=== PATIENT | female | born 1975 | race Caucasian/White ===

== ENCOUNTER 2018-04-24 16:09 | Inpatient (IN) | payer OTHER, MEDICAID ==
[~2018-04-24] VITALS: Ht 154.9 cm; Wt 42.7 kg
[2018-04-24 16:09] VITALS: BP 130/77
[~2018-04-24 16:09] MED LIST: ACET-2619 PO; ALPR1TAB2 PO; ASCO500T45 PO; BISA10SU1 RC; FAMO-90 PO; GABAPENTIN 300 MG CAP PO SCH; HYDR4TAB4 PO; MELA3TAB PO; METH750T9 PO; ONDA4ODT1 PO; OXYB15TA PO; OXYC30TE PO; SENNAKOT PO; TRAZ-286 PO; [UNRECOGNIZED DRUG - CODE] PO; [UNRECOGNIZED DRUG - CODE] PO
--- NOTE | 2018-04-24 16:09 | NUR ---
PT BIBA BLS TO BED 9
--- NOTE | 2018-04-24 16:36 | NUR ---
REPORT GIVEN TO ECHO LAMBERT
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
--- NOTE | 2018-04-24 17:06 | NUR ---
Patient being evaluated by physician at bedside.
[2018-04-24] MEDS ORDERED: NACL 0.9% 1,000 ML IV SCH ×2 (17:45→17:53)
[2018-04-24] MEDS ORDERED: HYDROcodone/APAP 7.5/325 MG 1 TAB PO PRN ×2 (17:45→17:55)
[2018-04-24] MEDS ORDERED: DOCUSATE SODIUM 100 MG GELCAP PO PRN ×2 (17:45→17:55)
[2018-04-24] MEDS ORDERED: MORPHINE SULFATE 2 MG/ML SYR IVP PRN ×2 (17:45→17:55)
[2018-04-24] MEDS ORDERED: ACETAMINOPHEN 325 MG TAB PO PRN ×2 (17:45→17:55)
[2018-04-24] MEDS ORDERED: BISACODYL 10 MG SUPP RC PRN (18:00)
[2018-04-24] MEDS ORDERED: SENNA 8.6 MG TAB PO PRN ×2 (18:00→20:00)
[2018-04-24] MEDS ORDERED: ONDANSETRON 4 MG ODT PO PRN (18:00)
[2018-04-24] MEDS ORDERED: ALPRAZolam 0.5 MG TAB PO PRN (18:00)
[2018-04-24] MEDS ORDERED: oxyCODONE 10 MG TABER PO SCH (18:00)
[2018-04-24] MEDS ORDERED: MAGNESIUM CITRATE 300 ML BTL PO PRN (18:00)
[2018-04-24] MEDS ORDERED: HYDROmorphone 2 MG TAB PO SCH (18:00)
[2018-04-24] MEDS ORDERED: METHOCARBAMOL 500 MG TAB PO PRN (18:00)
--- NOTE | 2018-04-24 18:10 | NUR ---
PT REFUSDED IV INCERTION
--- NOTE | 2018-04-24 18:15 | NUR ---
PER VERA MCGILL.
--- NOTE | 2018-04-24 18:20 | NUR ---
PER DR AVILES # 16 FR Judd catheter with 10 ml utilizing sterile technique. Immediate return of 5 ml HAZY YELLW urine noted. Bedside drainage bag placed below level of bladder. Urine sample collected and sent to lab. Pt tolerated procedure WELL.
[2018-04-24 18:44] VITALS: BP 126/70
--- NOTE | 2018-04-24 18:44 | NUR ---
Patient will be admitted to care of DR RAYMOND. Admited to M/S. Will go to room 115. Belongings list completed. Report to CONNOR DODGE .
--- NOTE | 2018-04-24 18:44 | NUR ---
PATIENT ARRIVED FROM ER VIA BED/GURNEY, ASSISTED WITH PATIENT TRANSFER FROM ER BED TO [facility] BED. NO DISTRESS NOTED. PATIENT IN STABLE CONDITION. RESPIRATIONS EVEN, UNLABORED, ON ROOM AIR. COMPLAINS OF 6/10 LOW BACK PAIN, WILL GIVE PAIN MEDICATION PER MD ORDERS. AAOX4, CALM, COOPERATIVE, SKIN COLOR APPROPRIATE TO ETHNICITY, WARM TO TOUCH. SKIN IS INTACT. 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 ABDOMEN SOFT, NON-DISTENDED. LUNGS CTA ON ALL LOBES. NO IV SITE IN PLACE DUE TO PATIENT REFUSING. REVIEWED PLAN OF CARE WITH PATIENT. PATIENT VERBALIZED UNDERSTANDING. SAFETY MEASURES IN PLACE, CALL LIGHT WITHIN REACH. WILL CONTINUE OT MONITOR.
--- NOTE | 2018-04-24 19:35 | NUR ---
GAVE REPORT TO HIGHWAY MAINTENANCE WORKER NURSE FOR CONTINUITY OF CARE. PATIENT IN STABLE CONDITION.
--- NOTE | 2018-04-24 19:40 | NUR ---
RECEIVED REPORT FROM DAY SHIFT NURSE. AAOX4. NO DISTRESS NOTED. ON ROOM AIR. NO IV LINE. PT IS PARAPLEGIC. GAMEZ CATH IN PLACE DRAINING CLEAR YELLOW URINE. C/O BACK PAIN 04/26. WILL CLARIFY PAIN MEDS ORDER TO DOCTOR. DISCUSSED PLAN OF CARE, PT VERBALIZED UNDERSTANDING. FALL PRECAUTION IN PLACE. CALL LIGHT WITHIN REACH.
[2018-04-24] MEDS ORDERED: LUBI24SG4 PO (19:52)
[2018-04-24] MEDS ORDERED: FERR325E14 PO (19:59)
[2018-04-24] MEDS ORDERED: DOCU-300 PO (19:59)
[2018-04-24] MEDS ORDERED: FLEPED RC (19:59)
[2018-04-24] MEDS ORDERED: DULO60EC PO (19:59)
[2018-04-24] MEDS ORDERED: FLOR250 PO (19:59)
[2018-04-24] MEDS ORDERED: RIVA20TA PO (19:59)
[2018-04-24] MEDS ORDERED: SENN-72 PO (20:01)
--- NOTE | 2018-04-24 20:45 | NUR ---
DR. AGUERO IN THE ROOM TO SEE/TALK TO PT REGARDING HER PAIN MEDS.
[2018-04-24] MEDS ORDERED: HYDROmorphone 2 MG TAB ONE (20:53)
[2018-04-24] MEDS ORDERED: traZODone 50 MG TAB PO PRN (21:00)
[2018-04-24] MEDS ORDERED: GABAPENTIN 300 MG CAP PO SCH (21:00)
[2018-04-24] MEDS: HYDROmorphone 2 MG TAB PO SCH (21:02)
[2018-04-24] MEDS: ASCORBIC ACID 500 MG TAB PO SCH (21:03)
[2018-04-24] MEDS: FAMOTIDINE 20 MG TAB PO SCH (21:04)
--- NOTE | 2018-04-24 21:30 | NUR ---
PT ASKED FOR SNACK. SNACK PROVIDED. ALL NEEDS MET AT THIS TIME.
[2018-04-25] VITALS: BP 107/69
--- NOTE | 2018-04-25 00:05 | NUR ---
PT RESTING COMFORTABLY IN BED. NO C/O PAIN AT THIS TIME.
[2018-04-25] MEDS ORDERED: METHOCARBAMOL 500 MG TAB PO SCH (02:30)
[2018-04-25] MEDS ORDERED: HYDROmorphone 2 MG TAB ONE (03:07)
[2018-04-25] MEDS: HYDROmorphone 2 MG TAB PO SCH (03:09)
--- NOTE | 2018-04-25 03:15 | NUR ---
PT C/O LOWER BACK PAIN 04/26. DILAUDID 4 MG PO GIVEN. PT REFUSED ROBAXIN 750 MG PO. PT STATED " I DON'T NEED IT."
[2018-04-25 03:24] LABS: PROTHROMBIN TIME 11.7 secs (10.8-13.4)
[2018-04-25 03:35] LABS: CHOL/HDL RATIO 3.4 (1-4.5); THYROID STIMULATING HORMONE 0.84 uIU/mL (0.34-3.74)
[2018-04-25 03:43] LABS: HEMATOCRIT 21.4 % (36-48); WHITE BLOOD COUNT (AUTO) 4.3 K/uL (4.8-10.8)
[2018-04-25 03:49] LABS: MEAN CORPUSCULAR HEMOGLOBIN 24 pg (27-31); MEAN CORPUSCULAR HGB CONC 32 g/dL (33-37); MEAN CORPUSCULAR VOLUME 74.4 fL (80-94); PLATELET COUNT (AUTO) 191 K/uL (140-450); RED BLOOD CELL COUNT(AUTO) 2.87 MIL/uL (4.20-5.40); RED CELL DISTRIBUTION WIDTH 17.1 % (11.6-13.7)
[2018-04-25 03:52] LABS: ALBUMIN 2.9 g/dL (3.4-5.0); CARBON DIOXIDE 23.9 mmol/L (21-32); CREATININE 1.7 mg/dL (0.6-1.3); POTASSIUM 4.9 mmol/L (3.5-5.1); TOTAL BILIRUBIN 0.4 mg/dL (0.0-1.0)
[2018-04-25 04:07] LABS: HEMOGLOBIN 6.8 g/dL (12.0-16.0)
[2018-04-25 04:08] LABS: LYMPHOCYTES % (MANUAL) 60 % (20-46)
--- NOTE | 2018-04-25 04:08 | NUR ---
RECEIVED CRITICAL LAB VALUE HGB 6.8. REPORTED TO . DOCTOR TO SEE PT.
[2018-04-25 04:09] LABS: MONOCYTES % (MANUAL) 7 % (5-12)
--- NOTE | 2018-04-25 05:40 | NUR ---
DR. AGUERO IN THE ROOM TO SEE PT. AWARE OF PT'S URINE BROWN IN COLOR. ENCOURAGED PT TO DRINK MORE WATER. NO C/O PAIN.
--- NOTE | 2018-04-25 06:45 | NUR ---
PATIENT HAS BEEN SCREENED AND CATEGORIZED HIGH NUTRITION RISK. PATIENT WILL BE SEEN WITHIN 1-2 DAYS OF ADMISSION. 04/25/18 - 04/26/18 BENIGNO MITCHELL MBA, RD
--- NOTE | 2018-04-25 07:05 | NUR ---
ENDORSED PT TO DAY SHIFT NURSE. PT IN STABLE CONDITION.
--- NOTE | 2018-04-25 07:07 | NUR ---
RECEIVED REPORT FROM AVIATION MAINTENANCE INSTRUCTOR RN. PATIENT IS RESTING COMFORTABLY IN BED. AAOX4. SKIN IS INTACT. NO IV SITE DUE TO PATIENT REFUSAL. GAMEZ CATHETER IN PLACE AND DRAINING DARK BROWN URINE. LUNGS CTA IN ALL GERMAN. HEART RHYTHM REGULAR, S1 AND S2 NOTED. PATIENT STATES THAT PAIN IS TOLERABLE AT THIS TIME. REVIEWED PLAN OF CARE WITH PATIENT, PATIENT VERBALIZED UNDERSTANDING OF PLAN. ALL SAFETY MEASURES IN PLACE, WILL CONTINUE TO MONITOR.
[2018-04-25 07:38] LABS: HEMATOCRIT 21.2 % (36-48); MEAN CORPUSCULAR HEMOGLOBIN 24 pg (27-31); MEAN CORPUSCULAR HGB CONC 32 g/dL (33-37); MEAN CORPUSCULAR VOLUME 74.8 fL (80-94); PLATELET COUNT (AUTO) 176 K/uL (140-450); RED BLOOD CELL COUNT(AUTO) 2.83 MIL/uL (4.20-5.40); RED CELL DISTRIBUTION WIDTH 17.2 % (11.6-13.7); WHITE BLOOD COUNT (AUTO) 4.7 K/uL (4.8-10.8)
[2018-04-25 07:43] LABS: ANION GAP 13.6 (8-16); CARBON DIOXIDE 23.1 mmol/L (21-32); CREATININE 1.6 mg/dL (0.6-1.3); POTASSIUM 4.7 mmol/L (3.5-5.1)
[2018-04-25 07:48] LABS: HEMOGLOBIN 6.8 g/dL (12.0-16.0); MAGNESIUM 2.1 mg/dL (1.8-2.4); PHOSPHORUS 5.2 mg/dL (2.5-4.9)
[2018-04-25 08:00] VITALS: BP 91/57
[2018-04-25 08:21] LABS: LYMPHOCYTES % (MANUAL) 54 % (20-46); MONOCYTES % (MANUAL) 10 % (5-12)
[2018-04-25] MEDS: ASCORBIC ACID 500 MG TAB PO SCH ×3 (09:00→21:00)
[2018-04-25] MEDS ORDERED: SODIUM FERRIC GLUCONATE 125 MG in NACL 0.9% 100 ML IV SCH (09:00)
[2018-04-25] MEDS: GABAPENTIN 300 MG CAP PO SCH ×3 (09:01→17:14)
[2018-04-25] MEDS: FAMOTIDINE 20 MG TAB PO SCH ×2 (09:02→21:43)
[2018-04-25] MEDS: OXYBUTYNIN 5 MG TAB PO SCH (09:02)
--- NOTE | 2018-04-25 09:15 | NUR ---
PATIENT IS RESTING COMFORTABLY IN BED. SCHEDULED MEDICATION ADMINISTERED PER MD ORDERS. ALL SAFETY MEASURES IN PLACE, CALL LIGHT WITHIN REACH.
--- NOTE | 2018-04-25 10:29 | NUR ---
04/25/18 RD INITIAL ASSESSMENT COMPLETED PLEASE REFER TO NUTRITION ASSESSMENT UNDER CARE ACTIVITY FOR ESTIMATED NUTRITIONAL NEEDS. RD RECOMMENDATIONS: 1- RECOMMEND CONTINUE REGULAR DIET 2- WILL ADD HEALTHSHAKES TID WITH MEALS TO HELP INCREASE CALORIE/PROTEIN INTAKE 3- F/U 3-5 DAYS; MODERATE RISK BENIGNO MITCHELL MBA, RD
--- NOTE | 2018-04-25 11:30 | NUR ---
PATIENT RESTING COMFORTABLY IN BED. ASSISTED PATIENT WITH SPONGE BATH AND GAMEZ CARE. ALL SAFETY MEASURES IN PLACE, CALL LIGHT WITHIN REACH. WILL CONTINUE TO MONITOR.
[2018-04-25] MEDS: HYDROmorphone 2 MG TAB PO PRN ×3 (12:46→23:09)
--- NOTE | 2018-04-25 12:46 | NUR ---
PATIENT COMPLAINING OF PAIN 06/26. DILAUDID GIVEN PER MD ORDERS. ALL SAFETY MEASURES IN PLACE, CALL LIGHT WITHIN REACH. WILL CONTINUE TO MONITOR.
[2018-04-25] MEDS: METHOCARBAMOL 500 MG TAB PO SCH ×2 (12:55→21:26)
--- NOTE | 2018-04-25 15:56 | NUR ---
PATIENT IS RESTING IN BED. NO DISTRESS NOTED. DENIES PAIN AT THIS TIME. ALL SAFETY MEASURES ARE IN PLACE. WILL CONTINUE TO MONITOR.
[2018-04-25 16:00] VITALS: BP 102/66
[2018-04-25] MEDS ORDERED: ALBUTEROL SULFATE/IPRATROPIU 3 ML SOL IH PRN (16:45)
[2018-04-25] MEDS ORDERED: CALCIUM ACETATE 667 MG TAB PO ONE (16:55)
[2018-04-25] MEDS: oxyCODONE 10 MG TABER PO SCH (18:00)
[2018-04-25] MEDS ORDERED: oxyCODONE 10 MG TABER PO PRN (18:00)
[2018-04-25] MEDS ORDERED: HYDROmorphone 2 MG TAB PO PRN (18:00)
--- NOTE | 2018-04-25 18:00 | NUR ---
PATIENT SLEEPING COMFORTABLY IN BED, AROUSABLE BY VOICE. ALL SAFETY MEASURES IN PLACE, WILL CONTINUE TO MONITOR.
--- NOTE | 2018-04-25 19:15 | NUR ---
PATIENT IS SLEEPING IN BED, AROUSABLE BY VOICE. ENDORSED PLAN OF CARE TO VARIETY PERFORMER NURSE. PATIENT IS IN STABLE CONDITION.
--- NOTE | 2018-04-25 19:16 | NUR ---
RECD. RESTING IN BED, AWAKE, A/OX4. RESPIRATION EVEN AND UNLABORED. NO IV LINE. WATCHING TV. BEDBOUND, F/C PATENT DRAINING CLOUDY YELLOW URINE. PLAN OF CARE FOR THE SHIFT DISCUSSED. VERBALIZED UNDERSTANDING. DENIES PAIN 0/10.
--- NOTE | 2018-04-25 19:53 | NUR ---
Patient's Plan of Care was discussed and reviewed with MARRIAGE COUNSELOR: YAMILE HELLER
--- NOTE | 2018-04-25 21:43 | NUR ---
DUE PO MEDICATIONS GIVEN. REFUSED VITAMIN C. WANTS STOOL SOFTENERS BUT DOES NOT WANT CITROMA AND SENNA, WILL INFORMED .
[2018-04-25] MEDS ORDERED: BISACODYL 5 MG TABEC PO PRN (22:00)
--- NOTE | 2018-04-25 22:30 | NUR ---
SNACK GIVEN REQUESTED.
--- NOTE | 2018-04-25 22:36 | NUR ---
SITTING ON BED, STILL WATCHING TV.CALCIUM LOW, MEDICATED WITH PHOSLO ORDERED.
--- NOTE | 2018-04-25 22:37 | NUR ---
NO BM FOR THREE DAYS NOW, MEDICATED WITH DULCOLAX TABLET ORDERED.
[2018-04-25] MEDS ORDERED: CALCIUM ACETATE 667 MG TAB PO SCH (23:00)
[2018-04-26] VITALS: BP 114/65
--- NOTE | 2018-04-26 | NUR ---
SLEEPING COMFORTABLY IN BED.
[2018-04-26] MEDS: METHOCARBAMOL 500 MG TAB PO SCH ×3 (05:00→21:19)
--- NOTE | 2018-04-26 05:30 | NUR ---
AWAKE IN BED, ENCOURAGED TO DRINK MORE WATER, STATED THAT SHE DOES NOT LIKE DRINKING WATER, SUGGESTED TRY WITH WITH LEMON.
[2018-04-26] MEDS: HYDROmorphone 2 MG TAB PO PRN ×5 (05:40→22:52)
[2018-04-26] MEDS: oxyCODONE 10 MG TABER PO SCH ×4 (06:00→18:00)
--- NOTE | 2018-04-26 07:00 | NUR ---
CONDITION REMAIN STABLE. WILL ENDORSE TO AM NURSE FOR CONTINUITY OF CARE.
--- NOTE | 2018-04-26 07:19 | NUR ---
ENDORSED TO AM NURSES FOR CONTINUITY OF CARE.
--- NOTE | 2018-04-26 07:20 | NUR ---
RECEIVED REPORT FROM MATERIAL REPROCESSING ASSOCIATE RN. PATIENT IS RESTING COMFORTABLY IN BED, AROUSABLE BY VOICE. SKIN IS INTACT. NO IV SITE DUE TO PATIENT REFUSAL. GAMEZ CATHETER IN PLACE AND DRAINING DARKER YELLOW URINE. WILL CONTINUE TO ENCOURAGE ORAL HYDRATION. LUNGS CTA IN ALL GERMAN. HEART RHYTHM REGULAR, S1 AND S2 NOTED. PATIENT STATES THAT PAIN IS TOLERABLE AT THIS TIME. REVIEWED PLAN OF CARE WITH PATIENT, PATIENT VERBALIZED UNDERSTANDING OF PLAN. ALL SAFETY MEASURES IN PLACE, WILL CONTINUE TO MONITOR.
[2018-04-26 07:32] LABS: MEAN CORPUSCULAR HEMOGLOBIN 24 pg (27-31); MEAN CORPUSCULAR HGB CONC 33 g/dL (33-37); MEAN CORPUSCULAR VOLUME 74.3 fL (80-94); PLATELET COUNT (AUTO) 201 K/uL (140-450); RED BLOOD CELL COUNT(AUTO) 2.75 MIL/uL (4.20-5.40); RED CELL DISTRIBUTION WIDTH 17.1 % (11.6-13.7); WHITE BLOOD COUNT (AUTO) 4.6 K/uL (4.8-10.8)
[2018-04-26 07:36] LABS: ANION GAP 14.1 (8-16); CARBON DIOXIDE 23.4 mmol/L (21-32); CREATININE 1.6 mg/dL (0.6-1.3); POTASSIUM 4.5 mmol/L (3.5-5.1)
[2018-04-26 07:46] LABS: MAGNESIUM 2.1 mg/dL (1.8-2.4); PHOSPHORUS 5.3 mg/dL (2.5-4.9)
[2018-04-26 08:00] VITALS: BP 112/71
[2018-04-26] MEDS ORDERED: CALCIUM ACETATE 667 MG TAB PO SCH (08:00)
[2018-04-26 08:01] LABS: HEMATOCRIT 20.4 % (36-48); HEMOGLOBIN 6.7 g/dL (12.0-16.0)
[2018-04-26] MEDS: GABAPENTIN 300 MG CAP PO SCH ×3 (08:19→17:04)
[2018-04-26] MEDS: FAMOTIDINE 20 MG TAB PO SCH ×2 (08:19→21:19)
[2018-04-26] MEDS: OXYBUTYNIN 5 MG TAB PO SCH (08:20)
[2018-04-26 08:26] LABS: BASOPHILS % (MANUAL) 0 % (0-2); EOSINOPHILS % (MANUAL) 0 % (0-4); LYMPHOCYTES % (MANUAL) 61 % (20-46); MONOCYTES % (MANUAL) 9 % (5-12)
[2018-04-26] MEDS: ASCORBIC ACID 500 MG TAB PO SCH ×2 (08:29→21:00)
--- NOTE | 2018-04-26 08:40 | NUR ---
PATIENT SITTING IN BED COMFORTABLY. NO DISTRESS NOTED. PAIN WITHIN TOLERABLE AT THIS TIME. SCHEDULED MEDICATIONS DUE GIVEN. NOTIFIED CHARGE NURSE OF PICC LINE ORDER FROM MD, CHARGE NURSE NOTIFIED HORSE BREEDER, ERASMO ZIMMERMAN VERBALIZED UNDERSTANDING AND WILL FOLLOW-UP ON IT. PICC LINE PROCEDURE EXPLAINED TO PATIENT, ANSWERED ALL OF PATIENT'S QUESTIONS, AND CONSENT WAS SIGNED. SAFETY MEASURES IN PLACE, CALL LIGHT WITHIN REACH. WILL CONTINUE OT MONITOR.
--- NOTE | 2018-04-26 11:00 | NUR ---
BLOOD BANK CALLED AND REPORTED THAT BLOOD WILL TAKE SOME TIME TO ARRIVE BECAUSE THEY HAVE TO ORDER IT FROM ANOTHER PLACE DUE TO PATIENT HAVING ANTIGENS IN BLOOD. WILL CONTINUE TO MONITOR.
[2018-04-26] MEDS: CALCIUM ACETATE 667 MG TAB PO SCH ×2 (12:00→17:00)
--- NOTE | 2018-04-26 15:00 | NUR ---
FOLLOWED UP WITH DATA REPORTING ANALYST, ERASMO, VIA PHONE REGARDING PICC LINE PLACEMENT PROCEDURE THAT WAS ORDERED. ERASMO TO FOLLOW-UP. WILL CONTINUE TO MONITOR.
--- NOTE | 2018-04-26 15:39 | NUR ---
LEFT MESSAGE TO PICC LINE THE 3rd TIME.
[2018-04-26 16:00] VITALS: BP 111/68
--- NOTE | 2018-04-26 17:05 | NUR ---
PATIENT RESTING IN BED. SCHEDULED MEDICATIONS GIVEN AT THIS TIME PER MD ORDERS. PATIENT CONTINUES TO REFUSE CALCIUM ACETATE TABLET. NO DISTRESS OR COMPLAINS OF PAIN AT THIS TIME. SAFETY MEASURES ARE IN PLACE, WILL CONTINUE TO MONITOR.
--- NOTE | 2018-04-26 19:24 | NUR ---
ENDORSED PLAN OF CARE TO PRINT AND PATTERN DESIGNER RN. PATIENT IS IN STABLE CONDITION.
--- NOTE | 2018-04-26 19:25 | NUR ---
RECEIVED REPORT FROM DAY SHIFT BRANDON MARROQUIN RN. PT RESTING COMFORTABLY IN BED, ANOX4, ON ROOM AIR, NO IV SITE DUE TO PATIENT REFUSAL. AWAITING FOR PICC LINE TO BE INSERTED. PT IS PARAPLEGIC, FALL PREACAUTIONS IN PLACE. BED ALARM ON. GAMEZ CATHETER IN PLACE AND DRAINING DARKER YELLOW URINE. WILL CONTINUE TO ENCOURAGE ORAL HYDRATION. DISCUSSED PLAN OF CARE AND PATIENT VERBALIZED UNDERSTANDING. NO S/S OF RESPIRATORY DISTRESS OR DISCOMFORT NOTED AT THIS TIME. WHITE BOARD UPDATED. BED IN LOWEST POSITION, SIDE RAILS UP, BED BREAKS ON. BED SIDE TABLE AND CALL LIGHT WITHIN REACH. WILL CONTINUE TO MONITOR.
[2018-04-26 20:00] VITALS: BP 117/71
--- NOTE | 2018-04-26 20:00 | NUR ---
VITAL SIGNS TAKEN AND TOLERATED WELL. WILL CONTINUE TO MONITOR.
--- NOTE | 2018-04-26 21:20 | NUR ---
SCHEDULED MEDICATION GIVEN AND TOLERATED WELL. PT HAS DIFFICULT SWALLOWING LARGE PILLS. ROBAXIN MEDICATION WAS CUT. PT REQUESTED SODA BECAUSE "IT MAKES IT EASIER FOR ME TO SWALLOW PILLS." PROVIDED SODA WITH ORAL MEDICATION. PT REFUSED VITAMIN C TABLET. ALSO REFUSING OXYCOTIN TABLETS BECAUSE SHE BELIEVES THE ENTERIC COATED TABLETS DISAGREE WITH HER STOMACH. INSTEAD SHE REQUESTS DILAUDID TABLETS FOR PAIN. NO S/S OF RESPIRATORY DISTRESS OR DISCOMFORT NOTED AT THIS TIME. WILL CONTINUE TO MONITOR.
--- NOTE | 2018-04-26 22:55 | NUR ---
PT C/O PAIN 06/26. GAVE DILAUDID TABLETS FOR PAIN. WILL CONTINUE TO MONITOR.
[2018-04-27] VITALS: BP 117/70
--- NOTE | 2018-04-27 | NUR ---
VITAL SIGNS TAKEN AND TOLERATED WELL. PT REFUSED OXYCONTIN SINCE SHE CLAIMS THE ENTERIC COATED TABLETS DISAGREE WITH HER STOMACH. WILL CONTINUE TO MONITOR.
--- NOTE | 2018-04-27 01:55 | NUR ---
PT CONTINUES TO SLEEP. NO S/S OF RESPIRATORY DISTRESS OR DISCOMFORT NOTED AT THIS TIME. WILL CONTINUE TO MONITOR.
--- NOTE | 2018-04-27 03:53 | NUR ---
PT CONTINUES TO SLEEP. NO S/S OF RESPIRATORY DISTRESS OR DISCOMFORT NOTED AT THIS TIME. WILL CONTINUE TO MONITOR.
--- NOTE | 2018-04-27 04:50 | NUR ---
PT C/O BACK PAIN 06/26. WILL MEDICATE.
[2018-04-27] MEDS: HYDROmorphone 2 MG TAB PO PRN ×3 (04:51→14:54)
[2018-04-27] MEDS: METHOCARBAMOL 500 MG TAB PO SCH ×2 (05:00→13:21)
--- NOTE | 2018-04-27 05:00 | NUR ---
PT REFUSED ROBAXIN MEDICATION. WILL CONTINUE TO MONITOR.
[2018-04-27] MEDS: oxyCODONE 10 MG TABER PO SCH ×3 (06:00→12:00)
--- NOTE | 2018-04-27 06:00 | NUR ---
PT SLEEPING IN BED. NO S/S OF RESPIRATORY DISTRESS OR DISCOMFORT NOTED AT THIS TIME. WILL CONTINUE TO MONITOR.
--- NOTE | 2018-04-27 07:17 | NUR ---
LEAVE MESSAGE TO VOICEMAIL PT FOR PICCLINE INSERTION, MADE AWARE PT WILL HAVE TRANSFUSION, WILL CALL BACK AGAIN LATER
--- NOTE | 2018-04-27 07:20 | NUR ---
ENDORSED PT CARE TO DAY SHIFT NURSE CARMEN FOR CONTINUITY OF CARE.
--- NOTE | 2018-04-27 07:20 | NUR ---
RECEIVED REPORT FROM NIGHTSHIFT NURSE AT BEDSIDE. PATIENT IS AWAKE AT THIS TIME. PATIENT ALERT AND ORIENTED X4. PATIENT IS PARAPLEGIC. PATIENT IS AWARE OF HER DEFICITS. PATIENT DOES NOT COMPLAIN OF PAIN AT THIS TIME. NO DISTRESS NOTED. NO IV ACCESS NOTED. AWAITING PICC LINE TO BE INSERTED. GAMEZ CATHETER IN PLACE DRAINING DARK FREDDIE URINE. LOWERED BED TO LOWEST SETTING. UPDATED BOARD IN PATIENT'S ROOM. APPROPRIATE SIGNS PLACED OUTSIDE OF PATIENTS ROOM. CALL LIGHT WITHIN REACH OF PATIENT. WILL CONTINUE TO MONITOR.
[2018-04-27 07:41] LABS: MAGNESIUM 2.7 mg/dL (1.8-2.4); PHOSPHORUS 4.2 mg/dL (2.5-4.9)
[2018-04-27 07:44] LABS: HEMATOCRIT 21.6 % (36-48); MEAN CORPUSCULAR HEMOGLOBIN 24 pg (27-31); MEAN CORPUSCULAR HGB CONC 32 g/dL (33-37); MEAN CORPUSCULAR VOLUME 74.7 fL (80-94); PLATELET COUNT (AUTO) 217 K/uL (140-450); RED BLOOD CELL COUNT(AUTO) 2.89 MIL/uL (4.20-5.40); RED CELL DISTRIBUTION WIDTH 17.2 % (11.6-13.7); WHITE BLOOD COUNT (AUTO) 4.7 K/uL (4.8-10.8)
[2018-04-27 07:46] LABS: ANION GAP 10.8 (8-16); CARBON DIOXIDE 27.3 mmol/L (21-32); CREATININE 1.5 mg/dL (0.6-1.3); POTASSIUM 5.1 mmol/L (3.5-5.1)
[2018-04-27 07:52] LABS: HEMOGLOBIN 6.9 g/dL (12.0-16.0)
[2018-04-27 08:00] VITALS: BP 110/59
[2018-04-27 08:03] LABS: LYMPHOCYTES % (MANUAL) 53 % (20-46); MONOCYTES % (MANUAL) 10 % (5-12)
--- NOTE | 2018-04-27 08:03 | NUR ---
CALL PLACE AGAIN TO PICC LINE LEAVE MESSAGE [employer] , WILL ENDORSE TO FOLLOW UP
[2018-04-27] MEDS: OXYBUTYNIN 5 MG TAB PO SCH (09:06)
[2018-04-27] MEDS: CALCIUM ACETATE 667 MG TAB PO SCH ×2 (09:06→13:21)
[2018-04-27] MEDS: GABAPENTIN 300 MG CAP PO SCH ×2 (09:07→13:21)
[2018-04-27] MEDS: FAMOTIDINE 20 MG TAB PO SCH (09:07)
[2018-04-27] MEDS: ASCORBIC ACID 500 MG TAB PO SCH (09:07)
--- NOTE | 2018-04-27 09:07 | NUR ---
PATIENT TOOK AM MEDICATIONS. PATIENT TOLERATED WELL. WILL CONTINUE TO MONITOR PATIENT.
[2018-04-27] MEDS ORDERED: GABA-638 PO (10:34)
--- NOTE | 2018-04-27 11:50 | NUR ---
PATIENT RESTING AT THIS TIME IN SEMI-FOWLERS POSITION. NO DISTRESS NOTED. WILL CONTINUE TO MONITOR PATIENT.
--- NOTE | 2018-04-27 13:24 | NUR ---
PATIENT TOOK AM MEDICATIONS. PATIENT TOLERATED WELL.
--- NOTE | 2018-04-27 13:30 | NUR ---
Gear Setter Notes: I Call SNF([facility]) at ; I spoke to [facility] from Admissions. Per Brianna patient is to able to return to their facility today at room # 113-C with accepting . Ric Dow. Per Brianna Please arrange transport for patient after 15:00. I thanked her for information and I ended the call. Charge NR Jihan was made aware by these advertising copywriter and will be arranging transport back for patient to their facility.
--- NOTE | 2018-04-27 14:54 | NUR ---
CALLED [facility] [phone], AND SHE GAVE RESERVATION #[id number]. PATIENT WILL GO TO [address] AT [facility], REPORT TO [phone].
--- NOTE | 2018-04-27 15:25 | NUR ---
DRAINED 1 LITER OF URINE FROM PATIENT'S GAMEZ CATHETER.
--- NOTE | 2018-04-27 15:30 | NUR ---
CALLED REPORT TO ECHO REYES AT [facility]. GAVE NURSE OUR CALL BACK NUMBER FOR ADDITIONAL QUESTIONS.
--- NOTE | 2018-04-27 15:40 | NUR ---
PATIENT SIGNED ALL DISCHARGE INSTRUCTIONS AND IS AWARE OF DESTINATION. PATIENT GATHERED ALL BELONGINGS. CUT OFF PATIENT'S IDENTIFICATION BANDS. PATIENT IS WHEELED OFF THE UNIT BY ROSSI WITH TWO LOGISTIC EMPLOYEES. PATIENT LEFT IN STABLE CONDITION.
[2018-04-28 06:13] LABS: FOLIC ACID 14.4 ng/mL (>3.0)
== END 2018-04-27 15:40 | disposition home or self-care (01) | DRG 551 ==
LOC: MED 16:09 → MTU 17:56
PROVIDERS: ADMIT Family Medicine; ATTEND Family Medicine
PROC: 30233N1 Transfusion of Nonautologous Red Blood Cells into Peripheral Vein, Percutaneous Approach (ICD-10-PCS; principal; 2018-04-26)
DX: M54.89 Other dorsalgia (principal); N17.0 Acute kidney failure with tubular necrosis; G82.20 Paraplegia, unspecified; E44.0 Moderate protein-calorie malnutrition; Z68.1 Body mass index [BMI] 19.9 or less, adult; D64.9 Anemia, unspecified; J45.909 Unspecified asthma, uncomplicated; K21.9 Gastro-esophageal reflux disease without esophagitis; Z86.718 Personal history of other venous thrombosis and embolism; G89.29 Other chronic pain; Z88.5 Allergy status to narcotic agent; Z88.8 Allergy status to other drugs, medicaments and biological substances; Z83.3 Family history of diabetes mellitus; Z82.3 Family history of stroke; Z82.49 Family history of ischemic heart disease and other diseases of the circulatory system; N32.81 Overactive bladder; K59.00 Constipation, unspecified; E83.39 Other disorders of phosphorus metabolism; F41.9 Anxiety disorder, unspecified; G47.00 Insomnia, unspecified; D63.8 Anemia in other chronic diseases classified elsewhere; E83.41 Hypermagnesemia
CPT/HCPCS: 36415; 71045; 80048; 80053; 82150; 82607; 82746; 83036; 83540; 83690; 83735; 83880; 84100; 84436; 84439; 84443; 84479; 84484; 85025; 85045; 85610; 85730; 86870; 86886; 86900; 86901; 86920; 87081; 93005; 93970; 99285; J2916; Q0092

== ENCOUNTER 2018-06-03 16:25 | Inpatient (IN) | payer OTHER, MEDICAID ==
[~2018-06-03] VITALS: Ht 154.9 cm; Wt 43.1 kg
[~2018-06-03 16:25] MED LIST changes: +DOCU-300 PO; +DULO60EC PO; +FERR325E14 PO; +FLEPED RC; +FLOR250 PO; +GABA-638 PO; -GABAPENTIN 300 MG CAP PO SCH; +LACT10CA PO; +LUBI24SG4 PO; +RIVA20TA PO; +SENN-72 PO; -SENNAKOT PO; -TRAZ-286 PO; +TRAZ-344 PO; +ZOS3.375PM IV
--- NOTE | 2018-06-03 16:25 | NUR ---
pt darwin bls to er bed 06
[2018-06-03 16:29] VITALS: BP 118/85
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
[2018-06-03] MEDS ORDERED: NACL 0.9% 1,000 ML IV ONE (16:55)
--- NOTE | 2018-06-03 17:05 | NUR ---
LAB AT BEDSIDE.
--- NOTE | 2018-06-03 17:10 | NUR ---
PT REFUSED IVF;" I ONLY WANT PICC LINE . NOTIFIED DR MCFADDEN.
[2018-06-03 17:28] LABS: HEMOGLOBIN 7.5 g/dL (12.0-16.0); RED BLOOD CELL COUNT(AUTO) 2.94 MIL/uL (4.20-5.40); WHITE BLOOD COUNT (AUTO) 3.9 K/uL (4.8-10.8)
[2018-06-03 17:29] LABS: EOSINOPHILS % (AUTO) 0.2 % (0.0-4.0); HEMATOCRIT 23.3 % (36-48); LYMPHOCYTES % (AUTO) 34.3 % (20.5-51.1); MEAN CORPUSCULAR HEMOGLOBIN 26 pg (27-31); MEAN CORPUSCULAR HGB CONC 32 g/dL (33-37); MEAN CORPUSCULAR VOLUME 79.3 fL (80-94); MONOCYTES % (AUTO) 9.8 % (1.7-9.3); PLATELET COUNT (AUTO) 219 K/uL (140-450); RED CELL DISTRIBUTION WIDTH 20.9 % (11.6-13.7)
[2018-06-03 17:30] LABS: BASOPHILS % (AUTO) 0.7 % (0.0-2.0); LYMPHOCYTES # (AUTO) 1.4 K/uL (2.5-16.5); MONOCYTES # (AUTO) 0.4 K/uL (0.8-1.0); NEUTROPHILS # (AUTO) 2.2 K/uL (1.8-7.7)
[2018-06-03 17:45] LABS: APPEARANCE,URINE CLOUDY (CLEAR)
[2018-06-03] MEDS ORDERED: ACETAMINOPHEN 325 MG TAB PO PRN ×2 (17:45→19:10)
[2018-06-03] MEDS ORDERED: DOCUSATE SODIUM 100 MG GELCAP PO PRN (17:45)
[2018-06-03] MEDS ORDERED: ZOLPIDEM 5 MG TAB PO PRN (17:45)
[2018-06-03] MEDS ORDERED: LORazepam 0.5 MG TAB PO PRN (17:45)
[2018-06-03 17:46] LABS: BILIRUBIN,URINE 1+ (NEGATIVE); BLOOD, URINE 3+ (NEGATIVE); COLOR,URINE PINK (YELLOW); LEUKOCYTE ESTERASE ,URINE 3+ (NEGATIVE); NITRITE, URINE NEGATIVE (NEGATIVE); UGLUCOSE NEGATIVE (NEGATIVE)
[2018-06-03 17:47] LABS: RBC,URINE 20-50 /HPF (0-5); WBC,URINE 60-80 /HPF (0-5)
[2018-06-03 18:09] LABS: CARBON DIOXIDE 20.3 mmol/L (21-32); CREATININE 3.5 mg/dL (0.6-1.3); POTASSIUM 5.3 mmol/L (3.5-5.1); TOTAL BILIRUBIN 0.2 mg/dL (0.0-1.0)
[2018-06-03 18:10] LABS: ALBUMIN 2.6 g/dL (3.4-5.0)
--- NOTE | 2018-06-03 18:40 | NUR ---
Patient will be admitted to care of DR HOOKS. Admited to TELE. Will go to room 116A. Belongings list completed. Report to PATRICK MCCARTHY.
[2018-06-03 19:00] LABS: BARBITURATE, URINE NEGATIVE ng/ml (NEG <=200); BENZODIAZEPINE, URINE NEGATIVE ng/mL (NEG <=200); COCAINE, URINE NEGATIVE ng/mL (NEG <=300)
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
[2018-06-03 19:01] LABS: CANNABINOID, URINE NEGATIVE ng/mL (NEG <=50); OPIATE, URINE NEGATIVE ng/mL (NEG <=2000); PHENCYCLIDINE SCREEN,URINE NEGATIVE ng/mL (NEG <=25)
[2018-06-03] MEDS ORDERED: MAGNESIUM CITRATE 300 ML BTL PO PRN (19:10)
[2018-06-03] MEDS ORDERED: HYDROMORPHONE HCL 4 MG PO SCH (19:10)
[2018-06-03] MEDS ORDERED: BISACODYL 10 MG SUPP RC PRN (19:10)
[2018-06-03 19:21] LABS: PHOSPHORUS 6.7 mg/dL (2.5-4.9)
[2018-06-03 19:22] LABS: FREE T4 (FREE THYROXINE) 1.1 ng/dL (0.76-1.46)
[2018-06-03 19:23] LABS: MAGNESIUM 2.2 mg/dL (1.8-2.4)
--- NOTE | 2018-06-03 19:40 | NUR ---
DR ALMARAZ MADE AWARE OF NO IV LINE AND PREFERENCE FOR PICC LINE, DOCTOR TO TRY ONE TIME AND IF NOT ABLE TO GET IT WILL ORDER PICC LINE INSERTION.
[2018-06-03 19:46] LABS: THYROID STIMULATING HORMONE 2.06 uIU/mL (0.34-3.74)
[2018-06-03 20:00] VITALS: BP 129/69
[2018-06-03] MEDS: DULoxetine 30 MG CAPDR PO SCH (20:05)
[2018-06-03] MEDS: FERROUS SULFATE 325 MG TABEC PO SCH (20:06)
[2018-06-03] MEDS: HYDROmorphone 2 MG TAB PO PRN (20:06)
--- NOTE | 2018-06-03 20:10 | NUR ---
PT ONLY WANTS ONE TIME IV INSERTION, CHARGE NURSE KEIRA TRIED BUT UNABLE TO INSERT, MEDICATED PRN FOR PAIN WITH DILAUDID PO, SANDWICH PROVIDED, WITH GOOD APPETITE, ALL NEEDS ATTENDED.
--- NOTE | 2018-06-03 20:30 | NUR ---
SUPERVISOR OF OFFICIALS MADE AWARE OF ORDER FOR PICC LINE INSERTION, HE WILL CALL PICC LINE NURSE.
[2018-06-03] MEDS: NACL 0.9% 1,000 ML IV SCH (20:51)
[2018-06-03] MEDS ORDERED: MELATONIN 6 MG PO SCH (21:00)
--- NOTE | 2018-06-03 21:50 | NUR ---
FOLLOW UP WITH NACHO PETERSON, HE SAID HE LEFT MESSAGE TO PICC LINE NURSE, NO CALL BACK YET, DR BENOIT MADE AWARE THAT PICC LINE MIGHT BE INSERTED TOMORROW AND CAN'T ADMINISTER DUE IV ANTIBIOTIC, STATED "THAT'S FINE".
[2018-06-04] VITALS: BP 119/59
[2018-06-04] MEDS: HYDROmorphone 2 MG TAB PO PRN ×3 (00:02→21:05)
--- NOTE | 2018-06-04 00:05 | NUR ---
PT AWAKE, VITAL SIGNS STABLE, COMPLAINING OF PAIN, REFUSED DUE OXYCONTIN AND INSTEAD WANTS THE DILAUDID PO, MEDICATED PRN WITH DILAUDID PO, STILL NO IV LINE, AWAITING PICC LINE NURSE IN AM, CONTINUE TO MONITOR CLOSELY.
[2018-06-04] MEDS: ONDANSETRON 4 MG/2 ML VIAL IM/IVP PRN (01:09)
--- NOTE | 2018-06-04 01:10 | NUR ---
PT VOMITED 50 ML YELLOW BROWN VOMITUS, MEDICATED WITH ZOFRAN IM, MONITORED CLOSELY.
[2018-06-04] MEDS: NACL 0.9% 1,000 ML IV SCH ×3 (03:41→23:36)
[2018-06-04 04:30] VITALS: BP 122/70
--- NOTE | 2018-06-04 05:00 | NUR ---
PT DENIES ANY PAIN, REFUSED DUE OXYCONTIN PO, PREFER DILAUDID PO PRN, WILL CALL IF SHE IS IN PAIN, 800 ML GAMEZ CATH OUTPUT WITH DARK CRANBERRY COLORED URINE, UNABLE TO COLLECT STOOL OB, NO BM THE WHOLE SHIFT, AWAITING PICC LINE INSERTION, CONSENT SIGNED.
[2018-06-04] MEDS: PIPER/TAZO 2.25GM/D5W PREMIX 50 ML IV SCH ×5 (06:00→23:35)
[2018-06-04] MEDS: oxyCODONE 10 MG TABER PO SCH ×5 (06:00→23:37)
[2018-06-04 06:16] LABS: BASOPHILS % (AUTO) 0.6 % (0.0-2.0); HEMATOCRIT 25.1 % (36-48); HEMOGLOBIN 7.8 g/dL (12.0-16.0); LYMPHOCYTES # (AUTO) 1.5 K/uL (2.5-16.5); LYMPHOCYTES % (AUTO) 29.8 % (20.5-51.1); MEAN CORPUSCULAR HEMOGLOBIN 25 pg (27-31); MEAN CORPUSCULAR HGB CONC 31 g/dL (33-37); MEAN CORPUSCULAR VOLUME 79.5 fL (80-94); MONOCYTES # (AUTO) 0.4 K/uL (0.8-1.0); NEUTROPHILS # (AUTO) 3.1 K/uL (1.8-7.7); NEUTROPHILS % (AUTO) 61.6 % (42.2-75.2); PLATELET COUNT (AUTO) 244 K/uL (140-450); RED BLOOD CELL COUNT(AUTO) 3.15 MIL/uL (4.20-5.40); RED CELL DISTRIBUTION WIDTH 20.7 % (11.6-13.7)
--- NOTE | 2018-06-04 07:20 | NUR ---
PT AWAKE, NO SIGNS OF DISTRESS, REPORT GIVEN TO RN ERIK FOR CONTINUITY OF CARE.
--- NOTE | 2018-06-04 07:22 | NUR ---
RECEIVED BEDSIDE REPORT FROM PSYCHIATRIC AIDES TEACHER NURSE. PATIENT IS AWAKE, ALERT AND ORIENTEDX4. PATIENT IS BEDBOUND, SHE IS PARAPLEGIC. INCONTINENT. GAMEZ IN PLACE. SKIN IS INTACT. NO IV ACCESS. PATIENT TO GET PICC LINE TODAY. BED IN LOW POSITION. CALL LIGHT WITHIN REACH. WILL CONTINUE TO MONITOR THE PATIENT.
[2018-06-04 07:41] LABS: MAGNESIUM 2.4 mg/dL (1.8-2.4); PHOSPHORUS 7.1 mg/dL (2.5-4.9)
[2018-06-04 08:00] VITALS: BP 128/72
--- NOTE | 2018-06-04 08:39 | NUR ---
PATIENT HAS BEEN SCREENED AND CATEGORIZED HIGH NUTRITION RISK. PATIENT WILL BE SEEN WITHIN 1-2 DAYS OF ADMISSION. 06/04/18 06/05/[address]
--- NOTE | 2018-06-04 08:50 | NUR ---
PATIENT LEFT TO GET CT DONE. WILL AWAIT HER ARRIVAL BACK
[2018-06-04] MEDS: FERROUS SULFATE 325 MG TABEC PO SCH ×2 (09:00→21:00)
[2018-06-04] MEDS: LACTOBACILLUS RHAMNOSUS GG 1 EACH CAP PO SCH (09:00)
[2018-06-04] MEDS: OXYBUTYNIN 5 MG TAB PO SCH (09:00)
[2018-06-04] MEDS ORDERED: OXYBUTYNIN CHLORIDE 15 MG PO SCH (09:00)
--- NOTE | 2018-06-04 09:02 | NUR ---
PATIENT IS BACK FROM CT IN STABLE CONDITION. WILL GET HER MEDS.
[2018-06-04] MEDS: FAMOTIDINE 20 MG TAB PO SCH (09:10)
[2018-06-04 09:11] LABS: T4 (THYROXINE) 6.8 ug/dL (4.5-12.0)
--- NOTE | 2018-06-04 09:16 | NUR ---
ADMINISTERED MEDS. ONLY ADMINISTERED DILAUDID FOR PRN PAIN. 7/10 PAIN IN HER LEGS. ALSO GAVE PEPCID. PATIENT REFUSED IRON, DITROPAN, AND CULTURELLE. EDUCATED HER ON THE IMPORTANCE. SHE STILL REFUSED. WILL CONTINUE TO MONITOR THE PATIENT.
[2018-06-04 09:28] LABS: ANION GAP 16.7 (8-16); POTASSIUM 5.7 mmol/L (3.5-5.1)
[2018-06-04 09:29] LABS: CREATININE 3.7 mg/dL (0.6-1.3)
[2018-06-04] MEDS ORDERED: ONDANSETRON 4 MG TAB PO PRN (10:10)
--- NOTE | 2018-06-04 11:14 | NUR ---
ADMINISTERED PRN CONSTIPATION MEDS. PATIENT TOLERATED WELL. TOLD DR ABOUT THE CT RESULTS, SHE RECOMMENDS ENEMA. PATIENT REFUSED. WILL CONTINUE TO MONITOR THE PATIENT
[2018-06-04] MEDS: SODIUM POLYSTYRENE 15 GM/60 ML UDBTL PO SCH ×2 (11:30→12:14)
[2018-06-04] MEDS ORDERED: MAGNESIUM CITRATE 300 ML BTL PO SCH (11:30)
[2018-06-04 12:00] VITALS: BP 146/83
--- NOTE | 2018-06-04 12:22 | NUR ---
PATIENT IS GAGGING. ADMINISTERED PRN NAUSEA MED. PATIENT TOLERATED WELL. WILL CONTINUE TO MONITOR THE PATIENT,
--- NOTE | 2018-06-04 12:58 | NUR ---
PICC LINE NURSE IS AT BEDSIDE. ULTRASOUND WITH NURSE. WILL CONTINUE TO MONITOR THE PATIENT,
--- NOTE | 2018-06-04 14:00 | NUR ---
PICC LINE NURSE WAS UNABLE TO DO PICC LINE ON L ARM. GAVE HER A NEW PICC LINE KIT TO TRY A PICC LINE ON THE R ARM. WILL CONTINUE TO MONITOR THE PATIENT.
--- NOTE | 2018-06-04 14:43 | NUR ---
06/04/18 RD INITIAL ASSESSMENT COMPLETED PLEASE REFER TO NUTRITION ASSESSMENT UNDER CARE ACTIVITY FOR ESTIMATED NUTRITIONAL NEEDS. 1. CONTINUE REGULAR DIET TOLERATED 2. RECOMMEND HEALTHSHAKE WITH MEALS TID 3. CONTINUE ENCOURAGING PO AND FLUID INTAKE 4. RD TO FOLLOW-UP 2-3 DAYS, HIGH RISK KENDALL SALAZAR, RD
--- NOTE | 2018-06-04 15:07 | NUR ---
PICC LINE NURSE ONLY ABLE TO GET A MID LINE. PATIENT COMPLAINS OF PAIN WHEN FLUSHED. PICC LINE NURSE PLACED A 22G ON HER FOREARM. NO COMPLAINTS OF PAIN, FLUSHES WELL. CONNECTED HER TO HER FLUIDS AND MEDS. PATIENT TOLERATING WELL. SHE COMPLAINS OF WANTING TO REST. TOLD HER I WILL BE BACK WITHIN AN HOUR TO CHECK VITALS. WILL CONTINUE TO MONITOR THE PATIENT.
[2018-06-04 16:00] VITALS: BP 134/73
--- NOTE | 2018-06-04 16:50 | NUR ---
PATIENT REFUSED KAYEXALATE. DR AGUERO IS AWARE.
--- NOTE | 2018-06-04 17:03 | NUR ---
PATIENT CURRENTLY REFUSING ENEMA. SHE SAID IT DOES NOT WORK FOR HER. THE ENEMA COMES RIGHT BACK OUT CAUSE SHE HAS NO CONTROL SHE SAID. DR AGUERO IS AWARE. WILL CONTINUE TO MONITOR THE PATIENT.
--- NOTE | 2018-06-04 17:59 | NUR ---
ADMINISTERED MEDS. IV IS CLEAN, DRY AND INTACT. WILL CONTINUE TO MONITOR THE PATIENT.
--- NOTE | 2018-06-04 19:20 | NUR ---
GAVE BEDSIDE REPORT TO COMMERCIAL LOAN REVIEWER NURSE. PATIENT ENDORSED IN STABLE CONDITION.
--- NOTE | 2018-06-04 19:22 | NUR ---
RECEIVED AWAKE ON BED, DENIES PAIN AT THIS TIME, NO N/V NOTED, IVF INFUSING WELL VIA RT ARM PERIPHERAL LINE, RT UA MIDLINE IN PLACE, HEPLOCK, PER REPORT FROM AM NURSE IT HURTS WHEN LINE IS FLUSHED, DRESSING DRY AND INTACT, REFUSING ENEMA, RISK AND BENEFITS EXPLAINED BUT STATED "DOESN'T WORK FOR ME", GAMEZ CATHETER IN PLACE DRAINING DARK CRANBERRY URINE OUTPUT, PLAN OF CARE DISCUSS, SAFETY MEASURES IN PLACE, CALL LIGHT WITHIN REACH.
[2018-06-04 20:00] VITALS: BP 115/76
[2018-06-04] MEDS: DULoxetine 30 MG CAPDR PO SCH (21:00)
[2018-06-04] MEDS: DOCUSATE SODIUM 100 MG GELCAP PO SCH (21:05)
--- NOTE | 2018-06-04 21:10 | NUR ---
PT HAD LARGE WATERY BROWN STOOL, UNABLE TO COLLECT STOOL OB, SPONGE BATH DONE, MEDICATED PRN FOR PAIN WITH DILAUDID PO, REFUSED FERROUS SULFATE AND CYMBALTA MEDICATION, RISK AND BENEFITS EXPLAINED, ALL NEEDS ATTENDED, IVF INFUSING WELL.
--- NOTE | 2018-06-04 23:30 | NUR ---
PT SLEEPING, EASILY AROUSABLE, VITAL SIGNS STABLE, REFUSED DUE OXYCONTIN, DENIES PAIN, IV ANTIBIOTIC ADMINISTERED, CONTINUE TO MONITOR CLOSELY.
[2018-06-05] VITALS: BP 121/68
[2018-06-05] MEDS: HYDROmorphone 2 MG TAB PO PRN ×3 (02:58→20:27)
--- NOTE | 2018-06-05 03:10 | NUR ---
PT IN PAIN, VITAL SIGNS STABLE, MEDICATED PRN WITH DILAUDID PO, ASK PT IF I CAN FLUSH THE PICC LINE TO DETERMINE IF IT'S WORKING, PT THINKS IT'S NOT WORKING THAT'S WHY THE PICC LINE NURSE INSERTED A PERIPHERAL LINE SO THE PT CAN HAVE A LINE FOR IV MEDICATIONS.
[2018-06-05 04:05] VITALS: BP 133/76
[2018-06-05] MEDS: oxyCODONE 10 MG TABER PO SCH ×3 (05:24→18:00)
[2018-06-05] MEDS: PIPER/TAZO 2.25GM/D5W PREMIX 50 ML IV SCH ×3 (05:24→18:52)
--- NOTE | 2018-06-05 05:30 | NUR ---
PT SLEEPING, NO SIGNS OF DISTRESS, DUE IV ANTIBIOTIC ADMINISTERED, MONITORED CLOSELY.
[2018-06-05 06:34] LABS: FOLIC ACID 12.5 ng/mL (>3.0)
--- NOTE | 2018-06-05 06:50 | NUR ---
PT AWAKE, NO DISTRESS NOTED, ICE WATER PROVIDED PER REQUEST, NO EPISODE OF NAUSEA/VOMITING THE WHOLE SHIFT, IVF INFUSING WELL, MONITORED CLOSELY.
--- NOTE | 2018-06-05 07:10 | NUR ---
PT SLEEPING, NO SIGNS OF DISTRESS, REPORT GIVEN TO RN ERIK FOR CONTINUITY OF CARE.
--- NOTE | 2018-06-05 07:12 | NUR ---
RECEIVED BEDSIDE REPORT FROM POWER TRUCK DRIVER NURSE. PATIENT IS SLEEPING. NO SIGNS OF DISTRESS ON ROOM AIR. PATIENT IS BED BOUND. HX PARAPLEGIC. GAMEZ IN PLACE. DARK RED IN COLOR. SKIN IS INTACT. PICC LINE ON VANDANA. AND IV ON R FA 22G INFUSING NS AT 50ML/HR. IV IS CLEAN, DRY AND INTACT. PATIENT HAD A LOOSE BM LAST NIGHT. BED IN LOW POSITION. CALL LIGHT WITHIN REACH. WILL CONTINUE TO MONITOR THE PATIENT.
--- NOTE | 2018-06-05 07:30 | NUR ---
PATIENT CALLED ME. IV GOT DISCONNECTED AND SHE GOT ANXIOUS BECAUSE THERE WAS BLOOD OOZING FROM THE DISCONNECTED IV. CLEANED UP THE BLOOD AND CONNECTED PATIENT BACK. IV IS STILL CLEAN, DRY AND INTACT. WILL CONTINUE TO MONITOR THE PATIENT.
[2018-06-05 08:00] VITALS: BP 147/77
[2018-06-05] MEDS ORDERED: MAGNESIUM HYDROXIDE 2400 MG/30 ML UDC PO SCH (08:00)
[2018-06-05] MEDS: DOCUSATE SODIUM 100 MG GELCAP PO SCH ×2 (08:11→20:27)
[2018-06-05] MEDS: ONDANSETRON 4 MG/2 ML VIAL IM/IVP PRN ×2 (08:12→18:53)
[2018-06-05] MEDS: OXYBUTYNIN 5 MG TAB PO SCH (08:17)
[2018-06-05] MEDS: FERROUS SULFATE 325 MG TABEC PO SCH ×2 (08:17→20:28)
[2018-06-05] MEDS: LACTOBACILLUS RHAMNOSUS GG 1 EACH CAP PO SCH (08:17)
--- NOTE | 2018-06-05 08:17 | NUR ---
ADMINISTERED MEDS. PATIENT REFUSED IRON, PROBIOTIC AND OXYBUTIN. EDUCATED PATIENT AND STILL REFUSED. ADMINISTERED COLACE AND MILK OF MAGNESIUM, ALSO ADMINISTERED PRN ZOFRAN. PATIENT TOLERATED WELL. IV IS CLEAN, DRY AND INTACT. WILL CONTINUE TO MONITOR THE PATIENT. BED IN LOW POSITION. CALL LIGHT WITHIN REACH.
--- NOTE | 2018-06-05 10:00 | NUR ---
PATIENT IS SLEEPING. NO SIGNS OF DISTRESS ON ROOM AIR. WILL CONTINUE TO MONITOR THE PATIENT.
[2018-06-05 10:25] LABS: ALBUMIN 2.7 g/dL (3.4-5.0); ANION GAP 19.8 (8-16); CARBON DIOXIDE 18.4 mmol/L (21-32); CREATININE 3.4 mg/dL (0.6-1.3); MAGNESIUM 3.2 mg/dL (1.8-2.4); PHOSPHORUS 6.7 mg/dL (2.5-4.9); TOTAL BILIRUBIN 0.4 mg/dL (0.0-1.0)
[2018-06-05 10:47] LABS: POTASSIUM 6.2 mmol/L (3.5-5.1)
--- NOTE | 2018-06-05 11:00 | NUR ---
PLACE PATIENT ON WOUND CARE BED PER HER REQUEST AND THE OK FROM WOUND CARE NURSE. PATIENT SAID IT FEELS SO MUCH BETTER. WILL CONTINUE TO MONITOR THE PATIENT
--- NOTE | 2018-06-05 11:15 | NUR ---
Probate Clerk Notes Late Entry: I attempted to meet with Patient to discuss, confirmed and gather additional information about Patient. Patient was sleeping at the time.
[2018-06-05] MEDS: NACL 0.9% 1,000 ML IV SCH ×2 (11:41→20:26)
[2018-06-05] MEDS: CALCIUM ACETATE 667 MG TAB PO SCH ×2 (11:42→17:00)
--- NOTE | 2018-06-05 11:43 | NUR ---
ADMINISTERED MEDS. PATIENT REFUSED OXYCONTIN AND PHOSLO. PATIENT EDUCATED AND STILL REFUSED, SHE SAID SHE JUST WANTS TO FOCUS ON HER POTASSIUM. WILL TELL WILL CONTINUE TO MONITOR PATIENT, IV IS CLEAN, DRY AND INTACT.
[2018-06-05 12:00] VITALS: BP 121/73
[2018-06-05] MEDS ORDERED: SODIUM POLYSTYRENE 15 GM/60 ML UDBTL PR SCH (12:16)
--- NOTE | 2018-06-05 13:27 | NUR ---
ATTEMPTED TO DO KAYEXALATE SUPPOSITORY BUT D/T FECAL IMPACTION IT WAS UNABLE TO BE ADMINISTERED, DR DEVRIES
[2018-06-05] MEDS ORDERED: INSULIN LISPRO SLIDING SCALE 100 UNITS/ML VIAL SUBQ PRN (13:35)
[2018-06-05] MEDS ORDERED: DEXTROSE 50% 50 ML SYR IVP PRN (13:35)
--- NOTE | 2018-06-05 14:00 | NUR ---
Press Tender Late Notes from 06/05/18 I contact French from admissions at [facility] to discuss, confirm and gather Patient's additional information. According to French patient is been placed in their facility for Skilled Care Services and at this time, patient is on a 7 days bed hold while she receives medical care at [facility]. Per French has a son as her only emergency contacts and patient do not have an advance directive on chart; However patient's son is her health care decision maker. French confirmed patient's Son only contact information is the one listed on chart. Per French patient has no issues with medications and has all the special equipment needed in their facility. French stated that Patient is able to return to their facility when she is ready and clear for discharge. I thanked French for the information he provided and I ended the call.
[2018-06-05] MEDS ORDERED: INSULIN REGULAR, HUMAN 100 UNIT/ML VIAL IVP SCH (15:00)
[2018-06-05] MEDS ORDERED: DEXTROSE 50% 50 ML SYR IVP SCH (15:00)
--- NOTE | 2018-06-05 15:30 | NUR ---
Ticket Speculator Notes Late Entry: I received a call from Deysi from admissions at [phone] stated that she is in her way to [facility] to see and visit their patient. Deysi stated wanting to know if she needed anything in order see patient and was calling these travel writer in advance before she shows up as well to scheduled and in-service with disease case manager/social science analyst department. I Informed Deysi that she can visit with patient and only needed to identify herself to front Lobby and sign in. In regards to Inservice I will call her back to scheduled a time. Deysi thanked me for the information, agreed and ended the call.
--- NOTE | 2018-06-05 15:56 | NUR ---
ADMINISTERED MEDS. PATIENT TOLERATED WELL. ENEMA WAS GIVEN. STOOL CAME OUT BUT SCANT,
[2018-06-05 16:00] VITALS: BP 109/61
[2018-06-05] MEDS: BLOOD GLUCOSE MONITORING 1 DEV DEV FS SCH ×2 (16:30→20:26)
[2018-06-05 16:43] LABS: ANION GAP 15.3 (8-16); CARBON DIOXIDE 21.6 mmol/L (21-32); CREATININE 3.4 mg/dL (0.6-1.3); POTASSIUM 4.9 mmol/L (3.5-5.1)
--- NOTE | 2018-06-05 18:53 | NUR ---
ADMINISTERED MEDS. PATIENT TOLERATED WELL. GAVE ANTNAUSEA MEDS. WILL CONTINUE TO MONITOR
--- NOTE | 2018-06-05 19:00 | NUR ---
GAVE BEDSIDE REPORT TO MICROSOFT INFRASTRUCTURE CONSULTANT NURSE. PATIENT IN STABLE CONDITION
--- NOTE | 2018-06-05 19:10 | NUR ---
RECEIVED REPORT FROM [facility] NURSE ERIK AT BEDSIDE FOR CONTINUITY OF CARE. PT AAOX4. PT IV NOTED RFA 22G NS 50ML/HR. (ORDER IS 100ML BUT DR IS OK WITH GIVING IV NS AT 50ML/HR) NO SOB NO S/S OF DISTRESS. PT HAS GAMEZ IN PLACE. BED LOWERED CALL LIGHT WITHIN REACH WILL CONTINUE TO MONITOR.
[2018-06-05 20:00] VITALS: BP 118/75
[2018-06-05] MEDS: DULoxetine 30 MG CAPDR PO SCH (20:28)
[2018-06-05] MEDS ORDERED: SODIUM POLYSTYRENE 15 GM/60 ML UDBTL PR ONE (21:15)
[2018-06-06] VITALS (7 sets, daily range): BP systolic 108–132; BP diastolic 62–78
[2018-06-06] MEDS: PIPER/TAZO 2.25GM/D5W PREMIX 50 ML IV SCH ×5 (00:10→23:50)
--- NOTE | 2018-06-06 01:13 | NUR ---
PT SLEEPING NO SOB NO S/S OF DISTRESS. WILL CONTINUE TO MONITOR.
[2018-06-06] MEDS: NACL 0.9% 1,000 ML IV SCH ×2 (03:11→16:25)
[2018-06-06] MEDS: HYDROmorphone 2 MG TAB PO PRN ×3 (04:29→21:12)
--- NOTE | 2018-06-06 04:41 | NUR ---
PT REQUESTED PAIN MED. UPON ENTERING THE ROOM I SMELLED SMOKE. I LET THE PT KNOW I SMELL SMOKE IN THE ROOM SHE STATED THAT WAS WEIRD I WAS GETTING SMOKE SMELL.
[2018-06-06] MEDS: oxyCODONE 10 MG TABER PO SCH ×5 (06:00→23:50)
[2018-06-06] MEDS: BLOOD GLUCOSE MONITORING 1 DEV DEV FS SCH ×4 (07:13→21:13)
--- NOTE | 2018-06-06 07:30 | NUR ---
ENDORSED REPORT TO DAYSHIFT NURSE AT BEDSIDE FOR CONTINUITY OF CARE.
--- NOTE | 2018-06-06 07:31 | NUR ---
REPORT RECEIVED FROM NIGHT SHFT NURSE, PT AWAKE ALERT, RESTING QUIETLY IN NAD, RESP UNLABORED, SKIN WARM DRY COLOR WNL, PLAN OF CARE REVIEWED, PT DENIES PAIN OR DISCOMFORT, WILL CONTINUE TO MONITOR.
[2018-06-06 07:54] LABS: BASOPHILS % (AUTO) 0.8 % (0.0-2.0); EOSINOPHILS % (AUTO) 0.1 % (0.0-4.0); HEMATOCRIT 22.7 % (36-48); HEMOGLOBIN 7.3 g/dL (12.0-16.0); LYMPHOCYTES # (AUTO) 1.3 K/uL (2.5-16.5); LYMPHOCYTES % (AUTO) 29.7 % (20.5-51.1); MEAN CORPUSCULAR HEMOGLOBIN 26 pg (27-31); MEAN CORPUSCULAR HGB CONC 32 g/dL (33-37); MEAN CORPUSCULAR VOLUME 78.8 fL (80-94); MONOCYTES # (AUTO) 0.4 K/uL (0.8-1.0); MONOCYTES % (AUTO) 9.8 % (1.7-9.3); NEUTROPHILS # (AUTO) 2.6 K/uL (1.8-7.7); NEUTROPHILS % (AUTO) 59.6 % (42.2-75.2); PLATELET COUNT (AUTO) 201 K/uL (140-450); RED BLOOD CELL COUNT(AUTO) 2.88 MIL/uL (4.20-5.40); RED CELL DISTRIBUTION WIDTH 20.9 % (11.6-13.7); WHITE BLOOD COUNT (AUTO) 4.3 K/uL (4.8-10.8)
[2018-06-06 07:59] LABS: ANION GAP 15.9 (8-16); CARBON DIOXIDE 20.6 mmol/L (21-32); CREATININE 3.4 mg/dL (0.6-1.3); POTASSIUM 5.5 mmol/L (3.5-5.1)
[2018-06-06 08:13] LABS: MAGNESIUM 3.5 mg/dL (1.8-2.4); PHOSPHORUS 6.6 mg/dL (2.5-4.9)
[2018-06-06] MEDS: OXYBUTYNIN 5 MG TAB PO SCH (08:20)
[2018-06-06] MEDS: LACTOBACILLUS RHAMNOSUS GG 1 EACH CAP PO SCH (08:20)
[2018-06-06] MEDS: CALCIUM ACETATE 667 MG TAB PO SCH ×3 (08:20→16:54)
--- NOTE | 2018-06-06 08:20 | NUR ---
MORNING MEDS GIVEN. PATIENT REFUSED IRON, OXYBUTININ, CALCIUM ACETATE. TOLERATED REST WELL. PATIENT SITTING UP EATING BREAKFAST. WILL CONTINUE TO MONITOR.
[2018-06-06] MEDS: FERROUS SULFATE 325 MG TABEC PO SCH ×2 (08:21→21:00)
[2018-06-06] MEDS: DOCUSATE SODIUM 100 MG GELCAP PO SCH ×2 (08:21→21:12)
[2018-06-06] MEDS: FAMOTIDINE 20 MG TAB PO SCH (08:22)
[2018-06-06] MEDS ORDERED: PROMETHAZINE 25 MG/ML VIAL IM PRN (08:45)
[2018-06-06] MEDS ORDERED: MAGNESIUM HYDROXIDE 2400 MG/30 ML UDC PO SCH (08:57)
[2018-06-06 09:22] LABS: HEPATITIS B SURFACE ANTIBODY Non Reactive (.); HEPATITIS B SURFACE ANTIGEN Negative (Negative)
[2018-06-06] MEDS ORDERED: INSULIN NPH HUM/REG INSULIN HM 100 UNIT/ML 10 ML VIAL SUBQ SCH (10:21)
--- NOTE | 2018-06-06 10:21 | NUR ---
06/06/18 RD FOLLOW UP COMPLETED PLEASE REFER TO NUTRITION PROGRESS NOTE UNDER CARE ACTIVITY FOR ESTIMATED NUTRITION NEEDS. RD RECOMMENDATIONS: 1. CONTINUE REGULAR DIET TOLERATED 2. CONTINUE ENCOURAGING PO AND FLUID INTAKE 3. RD TO FOLLOW-UP 2-3 DAYS, HIGH RISK RAMONA PEDERSON MS, RDN
[2018-06-06] MEDS ORDERED: DEXTROSE 50% 50 ML SYR IVP SCH (10:22)
[2018-06-06] MEDS ORDERED: INSULIN REGULAR, HUMAN 100 UNIT/ML VIAL IVP SCH (11:34)
--- NOTE | 2018-06-06 11:42 | NUR ---
PATIENT REPORTED PAIN OF 7/10. DILAUDID GIVEN. REPOSITIONED TO MAKE MORE COMFORTABLE. WILL REASSESS PAIN IN ONE HOUR.
--- NOTE | 2018-06-06 12:42 | NUR ---
PAIN REASSESSED. PATIENT REPORTS PAIN OF 0/10. RESTING COMFORTABLE SITTING IN BED, WATCHING TV. WILL CONTINUE TO MONITOR.
[2018-06-06 14:47] LABS: ANION GAP 15.5 (8-16); CARBON DIOXIDE 22.4 mmol/L (21-32); CREATININE 3.5 mg/dL (0.6-1.3); POTASSIUM 4.9 mmol/L (3.5-5.1)
--- NOTE | 2018-06-06 16:23 | NUR ---
ASSISTED PATIENT TO REPOSITION IN BED. REMOVED EXTRA TAPE FROM IV LINE IT WAS BOTHERING HER. IV FLUIDS REPLACED. IV SITE WITHIN NORMAL LIMITS. PATIENT REPORTS NO PAIN. CALL LIGHT WITHIN REACH, BED IN LOWEST POSITION. WILL CONTINUE TO MONITOR.
--- NOTE | 2018-06-06 19:20 | NUR ---
REPORT GIVEN TO NIGHT RN, PT IN STABLE CONDITION
--- NOTE | 2018-06-06 19:30 | NUR ---
RECEIVED REPORT FROM DAYSHIFT NURSE AT BEDSIDE FOR CONTINUITY OF CARE. PT IV NOTED RFA 22G NS 50ML/HR. NO SOB NO S/S OF DISTRESS ON RA. BED LOWERED CALL LIGHT WITHIN REACH WILL CONTINUE TO MONITOR.
[2018-06-06] MEDS: DULoxetine 30 MG CAPDR PO SCH (21:00)
--- NOTE | 2018-06-06 22:00 | NUR ---
PT WANTED PAIN MEDS AND SANDWICH. ADMIN PAIN MED WILL CONTINUE TO MONITOR.
[2018-06-07] MEDS: NACL 0.9% 1,000 ML IV SCH ×2 (01:41→19:30)
[2018-06-07 04:00] VITALS: BP 125/69
--- NOTE | 2018-06-07 05:00 | NUR ---
PT WANTED PAIN MED. ADMIN PAIN MED . WILL CONTINUE TO MONITOR.
[2018-06-07] MEDS: HYDROmorphone 2 MG TAB PO PRN ×4 (05:31→21:31)
[2018-06-07] MEDS: PIPER/TAZO 2.25GM/D5W PREMIX 50 ML IV SCH ×4 (05:31→23:11)
[2018-06-07] MEDS: oxyCODONE 10 MG TABER PO SCH ×4 (05:36→23:11)
[2018-06-07] MEDS: BLOOD GLUCOSE MONITORING 1 DEV DEV FS SCH ×4 (05:37→21:00)
[2018-06-07 06:55] LABS: ANION GAP 15.6 (8-16); CARBON DIOXIDE 21.2 mmol/L (21-32); CREATININE 3.4 mg/dL (0.6-1.3); POTASSIUM 4.8 mmol/L (3.5-5.1)
--- NOTE | 2018-06-07 07:17 | NUR ---
ENDORSED REPORT TO DAYSHIFT NURSE AT BEDSIDE FOR CONTINUITY OF CARE.
--- NOTE | 2018-06-07 07:20 | NUR ---
REPORT RECEIVED FROM RIGGING SUPERVISOR NURSE, PT RESTING QUIETLY IN NAD, RESP EVEN UNLABORED, SKIN WARM DRY COLOR WNL, PLAN OF CARE REVIEWED, ALL SAFETY MEASURES IN PLACE, WILL CONTINUE TO MONITOR,
[2018-06-07 07:37] LABS: RED BLOOD CELL COUNT(AUTO) 2.76 MIL/uL (4.20-5.40); WHITE BLOOD COUNT (AUTO) 4.6 K/uL (4.8-10.8)
[2018-06-07 07:38] LABS: HEMATOCRIT 21.8 % (36-48); HEMOGLOBIN 6.9 g/dL (12.0-16.0); MEAN CORPUSCULAR HEMOGLOBIN 25 pg (27-31)
[2018-06-07 07:39] LABS: BASOPHILS % (AUTO) 0.3 % (0.0-2.0); EOSINOPHILS % (AUTO) 0.5 % (0.0-4.0); LYMPHOCYTES # (AUTO) 1.8 K/uL (2.5-16.5); LYMPHOCYTES % (AUTO) 38.7 % (20.5-51.1); MEAN CORPUSCULAR HGB CONC 32 g/dL (33-37); MEAN CORPUSCULAR VOLUME 78.7 fL (80-94); MONOCYTES # (AUTO) 0.5 K/uL (0.8-1.0); MONOCYTES % (AUTO) 11.9 % (1.7-9.3); NEUTROPHILS # (AUTO) 2.3 K/uL (1.8-7.7); NEUTROPHILS % (AUTO) 48.6 % (42.2-75.2); PLATELET COUNT (AUTO) 209 K/uL (140-450); RED CELL DISTRIBUTION WIDTH 19.9 % (11.6-13.7)
[2018-06-07 08:00] VITALS: BP 122/63
[2018-06-07] MEDS ORDERED: POLYETHYLENE GLYCOL 17 GM/PKT PO SCH ×2 (09:00)
[2018-06-07] MEDS ORDERED: BISACODYL 10 MG SUPP RC SCH (09:19)
[2018-06-07] MEDS: OXYBUTYNIN 5 MG TAB PO SCH (09:30)
[2018-06-07] MEDS: CALCIUM ACETATE 667 MG TAB PO SCH ×3 (09:30→17:00)
[2018-06-07] MEDS: LACTOBACILLUS RHAMNOSUS GG 1 EACH CAP PO SCH (09:30)
[2018-06-07] MEDS: DOCUSATE SODIUM 100 MG GELCAP PO SCH ×2 (09:37→21:00)
[2018-06-07] MEDS: FERROUS SULFATE 325 MG TABEC PO SCH (09:39)
--- NOTE | 2018-06-07 09:40 | NUR ---
MEDUM AMOUNT OF BM NOTED, PERICARE DONE, GAMEZ CARE DONE, WILL CONTINUE TO MONITOR
[2018-06-07] MEDS ORDERED: SODIUM FERRIC GLUCONATE 125 MG in NACL 0.9% 100 ML IV SCH (10:00)
--- NOTE | 2018-06-07 10:20 | NUR ---
RIGHT ARM IV PAINFUL, SWELLING AND BLANCHING NOTED, IV DC'D, CATH TIP INTACT, BLEEDING CONTROLLED, WILL CONTINUE TO MONITOR. WILL START NEW IV
--- NOTE | 2018-06-07 11:30 | NUR ---
NEW IV STARTED TO LEFT LEG, 22G, GOOD BLOOD RETURN, FLUSHES WELL, PT LIAT WELL, OK TO START IV IN LEG PER RESIDENT DR Harry.. ,
[2018-06-07 12:00] VITALS: BP 128/78
--- NOTE | 2018-06-07 12:05 | NUR ---
DR Gonzales CORRIGAN AT BEDSIDE
[2018-06-07] MEDS ORDERED: ASCORBIC ACID 500 MG TAB PO SCH (13:12)
[2018-06-07] MEDS: POLYETHYLENE GLYCOL 17 GM/PKT PO SCH ×2 (13:58→17:00)
--- NOTE | 2018-06-07 15:00 | NUR ---
24HR URINE COLLECTION STARTED AT THIS TIME
[2018-06-07 15:58] LABS: HEMOGLOBIN 7.6 g/dL (12.0-16.0)
[2018-06-07 16:00] VITALS: BP 137/72
--- NOTE | 2018-06-07 18:20 | NUR ---
LARGE BM LOOSE, PERICARE DONE, LINEN CHANGED, PT LIAT WELL, IVF INFUSING WELL, SITE WNL, WILL CONTINUE TO MONITOR
--- NOTE | 2018-06-07 19:25 | NUR ---
REPORT GIVEN TO PHP ARCHITECT NURSE, PT RESTING QUIETLY, PLAN OF CARE DISCUSSED, IVF INFUSING WELL, SITE WNL,
--- NOTE | 2018-06-07 19:26 | NUR ---
RECEIVED REPORT FROM [facility] NURSE JAIRO AT BEDSIDE FOR CONTINUITY OF CARE. PT AAOX4. PT IV NOTED LEFT MARTINEZ 22G NS RUNNING AT TKO. NO SOB NO S/S OF DISTRESS DISTRESS ON RA. BED LOWERED BED ALARM AT BEDSIDE WILL CONTINUE TO MONITOR.
[2018-06-07 20:00] VITALS: BP 134/67
--- NOTE | 2018-06-07 20:00 | NUR ---
PT REFUSED BLOOD GLUCOSE DRAW. STATED SHE DOESN'T HAVE HX OF DM.
[2018-06-07] MEDS: LACTULOSE 20 GM/30 ML UDC PO SCH (21:00)
[2018-06-07] MEDS ORDERED: AMPICILLIN/SULBACTAM 1.5 GM in NACL 0.9% 50 ML IV SCH (21:00)
[2018-06-07] MEDS: DULoxetine 30 MG CAPDR PO SCH (21:00)
--- NOTE | 2018-06-07 21:00 | NUR ---
REFUSED MEDS: LACTULOSE AND COLACE BECAUSE SHE HAS HAD 4 BM. REFUSED CYMBALTA AND OXYCODONE.
--- NOTE | 2018-06-07 23:00 | NUR ---
I LET PT KNOW WE HAVE TO D/C HER OLD GAMEZ AND PLACE NEW GAMEZ. ADVISE HER ABOUT THE IMPORTANCE OF REMOVING OLD AND APPLY NEW GAMEZ. PT STATED MISAEL ALREADY EXPLAINED TO HER BENEFITS. SHE STATED SHE DOES NOT WANT PLACEMENT OF NEW GAMEZ NOW. AND TO CHECK BACK IN THE MORNING. WILL CONTINUE TO MONITOR.
[2018-06-08] VITALS: BP 125/71
[2018-06-08 04:00] VITALS: BP 133/73
[2018-06-08] MEDS: PIPER/TAZO 2.25GM/D5W PREMIX 50 ML IV SCH ×2 (05:03→20:39)
[2018-06-08] MEDS: HYDROmorphone 2 MG TAB PO PRN ×5 (05:03→22:29)
[2018-06-08] MEDS: oxyCODONE 10 MG TABER PO SCH ×4 (05:06→20:38)
[2018-06-08] MEDS: BLOOD GLUCOSE MONITORING 1 DEV DEV FS SCH (05:06)
--- NOTE | 2018-06-08 05:09 | NUR ---
PT REFUSED BG CHECKS THIS MORNING AND OXYCODONE. WILL CONTINUE TO MONITOR.
--- NOTE | 2018-06-08 06:20 | NUR ---
PT STATED SHE WOULD LIKE THE GAMEZ PLACE LATER TODAY. WILL ENDORSE TO NEXT NURSE.
--- NOTE | 2018-06-08 07:05 | NUR ---
ENDORSED REPORT TO DAYSHIFT NURSE AT BEDSIDE FOR CONTINUITY OF CARE.
--- NOTE | 2018-06-08 07:10 | NUR ---
RECEIVED REPORT FROM CORPORATE COUNSELOR RN. PATIENT IS AAOX4, HAS NO SIGNS AND SYMPTOMS OF ACUTE DISTRESS NOTED AT THIS TIME. HAS IV TO THE LEFT LOWER LEG 22G, INFUSING NS AT 60 ML/HR. HAS GAMEZ CATHETER DRAINING TO GRAVITY. DISCUSSED PLAN OF CARE WITH PATIENT AND SHE VERBALIZED UNDERSTANDING. BED IN LOWEST POSITION, SIDE RAILS UP X2, CALL LIGHT WITHIN REACH. WILL CONTINUE TO MONITOR.
[2018-06-08 08:00] VITALS: BP 156/89
[2018-06-08] MEDS: CALCIUM ACETATE 667 MG TAB PO SCH ×3 (08:00→17:00)
[2018-06-08] MEDS: DOCUSATE SODIUM 100 MG GELCAP PO SCH ×2 (08:35→20:39)
[2018-06-08] MEDS: FAMOTIDINE 20 MG TAB PO SCH (08:35)
--- NOTE | 2018-06-08 08:35 | NUR ---
PT SCREEN FOR NEO ADEN SCALE, SKIN INTACT NO REDNESS NOTICE AT THIS TIME. PRIMARY RN MADE AWARE, PRESSURE INJURY PREVENTIONS MEASUREMENT IN PLACE.
--- NOTE | 2018-06-08 08:35 | NUR ---
PATIENT ONLY WANTED TO TAKE COLACE, PEPCID AND PROCRIT. REFUSED OTHER MORNING MEDICATIONS STATING THAT SHE DOESN'T NEED THEM.
[2018-06-08] MEDS ORDERED: BISA10SU46 RC (08:41)
[2018-06-08] MEDS ORDERED: SENN-89 PO (08:41)
[2018-06-08] MEDS ORDERED: POLY17PD46 PO (08:41)
[2018-06-08] MEDS ORDERED: [UNRECOGNIZED DRUG - CODE] SUBQ (08:41)
[2018-06-08] MEDS ORDERED: PHO667 PO (08:41)
[2018-06-08 08:57] LABS: ANION GAP 12.8 (8-16); CARBON DIOXIDE 22.8 mmol/L (21-32); CREATININE 3.2 mg/dL (0.6-1.3); POTASSIUM 4.6 mmol/L (3.5-5.1)
[2018-06-08] MEDS: LACTULOSE 20 GM/30 ML UDC PO SCH ×2 (09:00→20:39)
[2018-06-08] MEDS: POLYETHYLENE GLYCOL 17 GM/PKT PO SCH ×3 (09:00→17:00)
[2018-06-08] MEDS: BISACODYL 10 MG SUPP RC SCH (09:00)
[2018-06-08] MEDS ORDERED: EPOETIN ALFA 3,000 UNITS/ML VIAL SUBQ SCH (09:00)
[2018-06-08] MEDS: SENNA 8.6 MG TAB PO SCH (09:00)
[2018-06-08] MEDS: LACTOBACILLUS RHAMNOSUS GG 1 EACH CAP PO SCH (09:00)
[2018-06-08] MEDS ORDERED: PIPE1PDS39 IV (09:01)
[2018-06-08] MEDS ORDERED: ASCO1CAP75 PO (09:02)
[2018-06-08 09:04] LABS: RED BLOOD CELL COUNT(AUTO) 2.64 MIL/uL (4.20-5.40)
[2018-06-08 09:05] LABS: HEMOGLOBIN 6.6 g/dL (12.0-16.0)
[2018-06-08 09:06] LABS: HEMATOCRIT 20.7 % (36-48); MEAN CORPUSCULAR HEMOGLOBIN 25 pg (27-31); MEAN CORPUSCULAR HGB CONC 32 g/dL (33-37); MEAN CORPUSCULAR VOLUME 78.5 fL (80-94)
[2018-06-08 09:07] LABS: BASOPHILS # (AUTO) 0.1 K/uL (0.00-0.22); BASOPHILS % (AUTO) 2.2 % (0.0-2.0); EOSINOPHILS % (AUTO) 0.2 % (0.0-4.0); LYMPHOCYTES # (AUTO) 1.9 K/uL (2.5-16.5); LYMPHOCYTES % (AUTO) 38.8 % (20.5-51.1); MONOCYTES # (AUTO) 0.4 K/uL (0.8-1.0); NEUTROPHILS # (AUTO) 2.6 K/uL (1.8-7.7); NEUTROPHILS % (AUTO) 19.8 % (42.2-75.2)
[2018-06-08 09:08] LABS: PLATELET COUNT (AUTO) 178 K/uL (140-450)
[2018-06-08 12:00] VITALS: BP 157/90
--- NOTE | 2018-06-08 12:00 | NUR ---
PATIENT REFUSING HER MEDS. SAYS OXYCONTIN DOESN'T WORK ON HER.
--- NOTE | 2018-06-08 13:25 | NUR ---
Turf Farmer Late Note as of 06/05/18. I attempted to call patient's son Justice Armas at to discuss, confirm and gather additional information about Patient. Patient's son did not responded to the call and these technical report writer left him a MSG with my contact Information and a request for a call back as soon as possible.
--- NOTE | 2018-06-08 13:37 | NUR ---
Shipping Lead Person Notes: I attempted to call patient's son Justice Armas again at to discuss, confirm and gather additional information about Patient; as well to inform him about possible discharge for patient from [facility] back to current Facility in [facility]. Patient's son did not responded to the call and these clinical writer left him a MSG with my contact Information and a request for a call back as soon as possible
--- NOTE | 2018-06-08 14:00 | NUR ---
WENT TO THE LAB TO GET UPDATED ON UNITS OF BLOOD. THEY TOLD ME THAT [facility] HAS NOT COME TO [facility] BLOOD SAMPLES DUE TO PATIENTS ANTIBODY BUILD UP.
--- NOTE | 2018-06-08 14:20 | NUR ---
Manager Apple Notes: I called French from admissions at [facility] to discuss patient's status in regards to possible discharge today. Per French patient is able to returned to their facility when she is ready and clear for discharge from [facility]. French asked If patient has any isolation issues; I informed him about labs pending for patient and that I will follow up with embedded case manager about labs results and with MD about Patient's discharge.
--- NOTE | 2018-06-08 15:44 | NUR ---
SPOKE WITH NARCISA AT [facility] AND [facility] HE SAID THEY CAN TAKE THE PATIENT. SHE CAN GO TO ROOM 113C UNDER DR. MCMAHON. Addendum: 06/08/18 at 1729 by Monik Brown CM MARCELINA DODGECERTIFIED TEACHER ASSISTANT NURSE AWARE.
[2018-06-08 16:00] VITALS: BP 158/89
[2018-06-08] MEDS ORDERED: PIPER/TAZO 2.25GM/D5W PREMIX 50 ML IV SCH ×2 (16:00→21:00)
--- NOTE | 2018-06-08 16:31 | NUR ---
Furnace Fitter Notes: I Faxed to [facility]. Patient's Clinical Information and MD order for patient to returned to [facility] [place] today after discharge. Technical Writing Lead/Mgr made aware.
--- NOTE | 2018-06-08 16:40 | NUR ---
SPOKE TO LAB AGAIN. STILL NO UNITS OF BLOOD RECEIVED FROM [facility]. THEY WILL CALL ME WHEN IT IS READY.
--- NOTE | 2018-06-08 17:00 | NUR ---
PATIENT REFUSED MEDICATIONS. SAYS SHE WANTS TO LEAVE. THAT SHE IS SICK OF US.
[2018-06-08] MEDS ORDERED: HYDROmorphone 2 MG TAB PO SCH (17:30)
--- NOTE | 2018-06-08 17:45 | NUR ---
CALLED [facility]. THEY CANNOT DO WILL CALL. PHONE [phone].
--- NOTE | 2018-06-08 19:30 | NUR ---
ENDORSED PATIENT TO RECORDS AND TAPE RECORDINGS ENGINEER RN FOR CONTINUITY OF CARE. PATIENT IN STABLE CONDITION.
--- NOTE | 2018-06-08 19:31 | NUR ---
RECEIVED BEDSIDE REPORT FROM DAY SHIFT NURSE LUIZA RN, PT STABLE, NO DISTRESS NOTED, IV TO L LEG 22G PATENT, INTACT, INFUSING NS @ 60ML/HR, INFUSING WELL, PT ON ROOM AIR, NO SOB, INITIAL ASSESSMENT, DONE, ALL SAFETY PRECAUTION DONE, WILL CONTINUE TO MONITOR.
--- NOTE | 2018-06-08 20:38 | NUR ---
DUE MEDICATION GIVEN, PT TOLERATED WELL, PT STATED REQUESTING TO HAVE HER OXYCODONE THAT WAS NOT TAKEN AT 1800, DR. MILLER AND DR. GONZALEZ NOTIFIED, STATED IT IS OK FOR THE PT TO TAKE HER OXYCODONE RIGHT NOW, PT TOOK THE OXYCODONE, TOLERATED WELL, NO DISTRESS NOTED, CALL LIGHT WITHIN REACH, WILL CONTINUE TO MONITOR.
[2018-06-08] MEDS: DULoxetine 30 MG CAPDR PO SCH (20:40)
--- NOTE | 2018-06-08 22:29 | NUR ---
PT STATED FEELING PAIN 10/10, PAIN MEDICATION GIVEN, PT TOLERATED WELL, NO DISTRESS NOTED, CALL LIGHT WITHIN REACH, WILL CONTINUE TO MONITOR.
--- NOTE | 2018-06-08 22:30 | NUR ---
BROUGHT PT 24HR URINE COLLECTION THAT WAS NOT COLLECTED BY DAY SHIFT NURSE, IT WAS SUPPOSED TO BE DUE AT 1500, LAB SAID THAT THEY CAN'T USE IT, WILL START NEW COLLECTION.
--- NOTE | 2018-06-08 23:00 | NUR ---
BLOOD TRANSFUSION STARTED, PT TOLERATED WELL, NO DISTRESS NOTED, WILL CONTINUE TO MONITOR.
--- NOTE | 2018-06-08 23:00 | NUR ---
STARTED 24HR URINE COLLECTION.
[2018-06-09] VITALS: BP 133/65
--- NOTE | 2018-06-09 00:01 | NUR ---
PT STATED DOES NOT WANT ANY OXYCODONE SLASHER SAWYER RIGHT NOW, AND MAYBE WANTS TO TAKE THE MEDICATION LATER. PT STABLE, NO DISTRESS NOTED, CALL LIGHT WITHIN REACH, WILL CONTINUE TO MONITOR.
--- NOTE | 2018-06-09 01:05 | NUR ---
BLOOD TRANSFUSION COMPLETED, PT TOLERATED WELL, NO DISTRESS NOTED, STABLE, NOTIFIED DR. LINDA DR. STATED UNDERSTANDING AND WILL ORDER CBC FOR PT.
[2018-06-09] MEDS: NACL 0.9% 1,000 ML IV SCH ×2 (01:35→04:50)
[2018-06-09] MEDS: HYDROmorphone 2 MG TAB PO PRN ×3 (03:55→12:48)
--- NOTE | 2018-06-09 03:55 | NUR ---
PT STATED FEELING PAIN, PAIN MEDICATION [PRESCRIBED GIVEN, PT TOLERATED WELL, NO DISTRESS NOTED, CALL LIGHT WITHIN REACH, WILL CONTINUE TO MONITOR.
[2018-06-09] MEDS: oxyCODONE 10 MG TABER PO SCH ×3 (05:17→14:27)
[2018-06-09] MEDS: PIPER/TAZO 2.25GM/D5W PREMIX 50 ML IV SCH ×2 (05:17→13:57)
--- NOTE | 2018-06-09 05:17 | NUR ---
DUE MEDICATION ADMINISTERED, PT TOLERATED WELL, NO DISTRESS NOTED, CALL LIGHT WITHIN REACH, WILL CONTINUE TO MONITOR.
--- NOTE | 2018-06-09 07:25 | NUR ---
ENDORSED PT TO DAY SHIFT NURSE GERI RN, PT STABLE, NO DISTRESS NOTED, SLEEPING, CALL LIGHT WITHIN REACH.
--- NOTE | 2018-06-09 07:25 | NUR ---
RECEIVED REPORT FROM NIGHTSHIFT NURSE AT BEDSIDE. PATIENT IS ASLEEP AT THIS TIME BUT AROUSABLE TO NAME. PATIENT IS PARAPLEGIC. SAFETY PRECAUTIONS ENSURED. IV NOTED ON LEFT LEG 22G RUNNING NORMAL SALINE AT 60 ML/HR. NO DISTRESS NOTED FROM PATIENT. CONTACT PRECAUTIONS ENSURED FOR PATIENT. CALL LIGHT WITHIN REACH OF PATIENT. WILL CONTINUE TO MONITOR PATIENT.
[2018-06-09 08:00] VITALS: BP 145/75
[2018-06-09] MEDS: CALCIUM ACETATE 667 MG TAB PO SCH ×2 (08:00→12:00)
--- NOTE | 2018-06-09 08:12 | NUR ---
PATIENT REFUSED ALL AM MEDICATIONS. ASKED FOR PEPCID AND EXPLAINED THAT IT IS DUE EVERY 2 DAYS. NO PEPCID SCHEDULED TODAY. ADMINISTERED 2 MG DILAUDID TO PATIENT FOR PAIN. WILL CONTINUE TO MONITOR PATIENT.
[2018-06-09 08:59] LABS: HEMATOCRIT 24.6 % (36-48); HEMOGLOBIN 7.9 g/dL (12.0-16.0); MEAN CORPUSCULAR HEMOGLOBIN 26 pg (27-31); MEAN CORPUSCULAR HGB CONC 32 g/dL (33-37); MEAN CORPUSCULAR VOLUME 80.9 fL (80-94); PLATELET COUNT (AUTO) 181 K/uL (140-450); RED BLOOD CELL COUNT(AUTO) 3.04 MIL/uL (4.20-5.40); RED CELL DISTRIBUTION WIDTH 20.1 % (11.6-13.7); WHITE BLOOD COUNT (AUTO) 6.4 K/uL (4.8-10.8)
[2018-06-09 09:00] LABS: BASOPHILS % (AUTO) 0.5 % (0.0-2.0); EOSINOPHILS % (AUTO) 0.2 % (0.0-4.0); LYMPHOCYTES % (AUTO) 30.2 % (20.5-51.1); MONOCYTES % (AUTO) 7.4 % (1.7-9.3); NEUTROPHILS % (AUTO) 61.7 % (42.2-75.2)
[2018-06-09] MEDS: LACTULOSE 20 GM/30 ML UDC PO SCH (09:00)
[2018-06-09] MEDS: LACTOBACILLUS RHAMNOSUS GG 1 EACH CAP PO SCH (09:00)
[2018-06-09] MEDS: POLYETHYLENE GLYCOL 17 GM/PKT PO SCH ×2 (09:00→13:00)
[2018-06-09] MEDS: BISACODYL 10 MG SUPP RC SCH (09:00)
[2018-06-09] MEDS: SENNA 8.6 MG TAB PO SCH (09:00)
[2018-06-09] MEDS: DOCUSATE SODIUM 100 MG GELCAP PO SCH (09:00)
[2018-06-09 09:47] LABS: ANION GAP 18.3 (8-16); CARBON DIOXIDE 18.8 mmol/L (21-32); CREATININE 3.1 mg/dL (0.6-1.3); POTASSIUM 4.1 mmol/L (3.5-5.1)
--- NOTE | 2018-06-09 10:20 | NUR ---
PATIENT SLEEPING AT THIS TIME. WILL CONTINUE TO MONITOR PATIENT.
--- NOTE | 2018-06-09 11:28 | NUR ---
CALLED [facility] AND SPOKE TO CHLOÉ, HE GAVE ETA WITHIN 1-4 HOURS. NOTIFIED BALDEV DODGE.
--- NOTE | 2018-06-09 11:45 | NUR ---
GAVE REPORT TO ANTHONY DODGE AT [facility]. GAVE NURSE CALLBACK NUMBER FOR ADDITIONAL QUESTIONS.
--- NOTE | 2018-06-09 11:46 | NUR ---
CALLED NARCISA AT [facility] AND TOLD HIM THAT THE PATIENT IS COMING TO HIM TODAY. HE SAID SHE STILL CAN GO TO ROOM 113 C. HE IS AWARE PATIENT IS ESBL IN URINE.
--- NOTE | 2018-06-09 12:17 | NUR ---
LEFT VOICEMAIL WITH PATIENT'S FAMILY MEMBER SCOTT CHINO REGARDING PATIENT'S TRANSFER TO THE [facility]. NO ONE ANSWERED PHONE. Addendum: 06/09/18 at 1218 by Jer Collier II, RN TIME WAS AT 1151
--- NOTE | 2018-06-09 14:27 | NUR ---
PATIENT REQUESTED FOR PAIN MEDICATION OXYCONTIN. ASKED DR. ALLEN IF PATIENT CAN RECEIVE PAIN MED OXYCONTIN. RESIDENT AGREED AND SAID, "SHE CAN TAKE IT IF SHE IS IN PAIN." GAVE PATIENT OXYCONTIN.
--- NOTE | 2018-06-09 16:25 | NUR ---
GAVE REPORT TO [facility] EMPLOYEE. PATIENT SIGNED ALL DISCHARGE INSTRUCTIONS AND IS AWARE OF PLAN OF CARE. PATIENT TRANSFERRED TO [facility]. REMOVED PATIENT'S IDENTIFICATION BANDS. PATIENT LEFT THE UNIT IN STABLE CONDITION.
== END 2018-06-09 16:25 | DRG 871 ==
LOC: MED 16:25 → MTU 17:42
PROVIDERS: ADMIT General Practice; ATTEND General Practice
PROC: 02HV33Z Insertion of Infusion Device into Superior Vena Cava, Percutaneous Approach (ICD-10-PCS; 2018-06-05)
PROC: B548ZZA Ultrasonography of Superior Vena Cava, Guidance (ICD-10-PCS; 2018-06-05)
PROC: 30233N1 Transfusion of Nonautologous Red Blood Cells into Peripheral Vein, Percutaneous Approach (ICD-10-PCS; principal; 2018-06-08)
DX: A41.9 Sepsis, unspecified organism (principal); N17.0 Acute kidney failure with tubular necrosis; E43 Unspecified severe protein-calorie malnutrition; G82.50 Quadriplegia, unspecified; N39.0 Urinary tract infection, site not specified; J98.11 Atelectasis; D50.9 Iron deficiency anemia, unspecified; K21.9 Gastro-esophageal reflux disease without esophagitis; F41.9 Anxiety disorder, unspecified; R73.03 Prediabetes; B96.20 Unspecified Escherichia coli [E. coli] as the cause of diseases classified elsewhere; D63.1 Anemia in chronic kidney disease; Z16.12 Extended spectrum beta lactamase (ESBL) resistance; I12.9 Hypertensive chronic kidney disease with stage 1 through stage 4 chronic kidney disease, or unspecified chronic kidney disease; N18.9 Chronic kidney disease, unspecified; M24.451 Recurrent dislocation, right hip; Z74.01 Bed confinement status; B96.4 Proteus (mirabilis) (morganii) as the cause of diseases classified elsewhere; I73.9 Peripheral vascular disease, unspecified; E87.5 Hyperkalemia; F11.10 Opioid abuse, uncomplicated; E83.51 Hypocalcemia; G89.29 Other chronic pain; F32.9 Major depressive disorder, single episode, unspecified; L89.90 Pressure ulcer of unspecified site, unspecified stage; K56.41 Fecal impaction; N31.9 Neuromuscular dysfunction of bladder, unspecified; Z90.49 Acquired absence of other specified parts of digestive tract; Z87.891 Personal history of nicotine dependence; Z86.718 Personal history of other venous thrombosis and embolism; Z86.14 Personal history of Methicillin resistant Staphylococcus aureus infection; Z88.5 Allergy status to narcotic agent; Z88.8 Allergy status to other drugs, medicaments and biological substances; I25.2 Old myocardial infarction; Z79.899 Other long term (current) drug therapy; E83.39 Other disorders of phosphorus metabolism
CPT/HCPCS: 36415; 71045; 74018; 80048; 80053; 80305; 81001; 82150; 82272; 82607; 82746; 82948; 83036; 83540; 83690; 83735; 84100; 84436; 84439; 84443; 84479; 84484; 85018; 85025; 85045; 85610; 85730; 86160; 86706; 86803; 86870; 86886; 86900; 86901; 86920; 87081; 87086; 87186; 87340; 93925; 93970; 99285; C1751; C1758; J0295; J0885; J1815; J2405; J2543; J2550; J2916; J7030; P9016; Q0092; Q0162

== ENCOUNTER 2018-08-12 12:12 | Inpatient (IN) | payer OTHER, MEDICAID ==
[~2018-08-12] VITALS: Ht 154.9 cm; Wt 42.6 kg
[~2018-08-12 12:12] MED LIST changes: -ALPR1TAB2 PO; +ASCO1CAP75 PO; +BISA10SU46 RC; -FAMO-90 PO; -LACT10CA PO; -LUBI24SG4 PO; -METH750T9 PO; -ONDA4ODT1 PO; +PHO667 PO; +PIPE1PDS39 IV; +POLY17PD46 PO; +SENN-89 PO; -ZOS3.375PM IV; +[UNRECOGNIZED DRUG - CODE] SUBQ
[2018-08-12 12:23] VITALS: BP 143/93
--- NOTE | 2018-08-12 12:28 | NUR ---
BIBA PLACED IN BED 3.
--- NOTE | 2018-08-12 12:30 | NUR ---
PATIENT PRESENTS TO ED WITH FEVER AND N/V . PT STATES FEVER AND N/V STARTED 3 DAYS AGO . SKIN IS PINK/WARM/DRY; AAOX4 WITH EVEN AND STEADY GAIT; LUNGS CLEAR BL; HR EVEN AND REGULAR; PT DENIES ANY FEVER, CP, SOB, OR COUGH AT THIS TIME; PATIENT STATES PAIN OF 0/10 AT THIS TIME; VSS; PATIENT POSITIONED FOR COMFORT; HOB ELEVATED; BEDRAILS UP X2; BED DOWN. ER MD MADE AWARE OF PT STATUS. BIBA FROM SNF C/O N/V & FEVER X 3 DAYS. HX: ESRD , GERD, ANEMIA, CHRONIC PAIN SYNDROME, OPIOID DEPENDENCE, NEUROMUSCULAR DYSFUNTION OF BLADDER, ANXIETY, PARAPLEGIA, OLD MYOCARDIAL INFARCTION, HEMODIALYSIS ON FRIDAY & FRIDAY. HEMODIALYSIS CATHETER AT RIGHT NECK.
--- NOTE | 2018-08-12 13:20 | NUR ---
Patient being evaluated by physician at bedside.
[2018-08-12] MEDS ORDERED: NACL 0.9% 500 ML IV SCH (13:24)
[2018-08-12] MEDS ORDERED: LEVOFLOXACIN 500 MG/D5W PREMIX 100 ML IV ONE (14:05)
[2018-08-12 14:33] LABS: HEMATOCRIT 28.4 % (36-48); HEMOGLOBIN 8.4 g/dL (12.0-16.0); MEAN CORPUSCULAR HEMOGLOBIN 24 pg (27-31); MEAN CORPUSCULAR HGB CONC 30 g/dL (33-37); MEAN CORPUSCULAR VOLUME 81.9 fL (80-94); PLATELET COUNT (AUTO) 371 K/uL (140-450); RED BLOOD CELL COUNT(AUTO) 3.47 MIL/uL (4.20-5.40); RED CELL DISTRIBUTION WIDTH 23.7 % (11.6-13.7); WHITE BLOOD COUNT (AUTO) 23.8 K/uL (4.8-10.8)
[2018-08-12] MEDS ORDERED: NACL 0.9% 1,000 ML IV SCH (14:34)
[2018-08-12] MEDS ORDERED: MORPHINE SULFATE 2 MG/ML SYR IVP PRN (14:35)
[2018-08-12] MEDS ORDERED: DOCUSATE SODIUM 100 MG GELCAP PO PRN (14:35)
[2018-08-12] MEDS ORDERED: ACETAMINOPHEN 325 MG TAB PO PRN (14:35)
[2018-08-12 14:42] LABS: PROTHROMBIN TIME 22.2 secs (10.8-13.4)
[2018-08-12] MEDS: ONDANSETRON 4 MG/2 ML VIAL IM/IVP PRN ×2 (14:48→19:45)
[2018-08-12 15:14] LABS: LYMPHOCYTES % (MANUAL) 5 % (20-46); MONOCYTES % (MANUAL) 2 % (5-12)
[2018-08-12 15:18] LABS: ANION GAP 30.3 (8-16); CARBON DIOXIDE 14.7 mmol/L (21-32)
[2018-08-12 15:19] LABS: ALBUMIN 2.6 g/dL (3.4-5.0); CREATININE 3.7 mg/dL (0.6-1.3); TOTAL BILIRUBIN 1.3 mg/dL (0.0-1.0)
[2018-08-12] MEDS ORDERED: INSULIN REGULAR, HUMAN 100 UNIT/ML VIAL IVP ONE (15:25)
[2018-08-12] MEDS ORDERED: SODIUM BICARBONATE 8.4% PFS 50 MEQ/50 ML SYR IVP ONE (15:25)
[2018-08-12] MEDS ORDERED: SODIUM POLYSTYRENE 15 GM/60 ML UDBTL PO ONE (15:25)
[2018-08-12] MEDS ORDERED: DEXTROSE 50% 50 ML SYR IVP ONE ×2 (15:25)
--- NOTE | 2018-08-12 15:30 | NUR ---
Admitted from ED , with chief complaint of FEVER, COUGH, BLOOD IN SPUTUM, SOB, CP. PT AAOX4, ON O2 AT 2LPN VIA NASAL CANNULA. WITH RT IJ YEMI CATHETER IN PLACE. CHEST, DIMINISHED AIR ENTRY TO THE BASES. ABDOMEN SOFT, BOWEL SOUNDS PRESENT. WITH GAMEZ DRAINING SMALL AMOUNT OF BROWNISH URINE. BLE SWELLING NOTE +2, PITTING NOTED. PT IS A 43 y/o ,Female, Cooperative,oriented to call light, bed, phone,television, bathroom, smoking policy,visiting hours, procedures, ID bracelet on. Belongings list checked. PT ON CONTACT ISO FOR HX OF MRSA RT HIP WOUND AND MDRO URINE.
--- NOTE | 2018-08-12 15:35 | NUR ---
ACCU CHECK DONE AT THE BEDSIDE, 71 MG/DL, DR. TREVIÑO NOTIFIED.
[2018-08-12] MEDS ORDERED: AZITHROMYCIN 250 MG TAB PO ONE (15:45)
[2018-08-12 16:00] VITALS: BP 134/91
[2018-08-12] MEDS ORDERED: DEXTROSE 50% 50 ML SYR IVP SCH (16:00)
[2018-08-12] MEDS ORDERED: INSULIN REGULAR, HUMAN 100 UNIT/ML VIAL IVP SCH (16:00)
[2018-08-12] MEDS ORDERED: GABAPENTIN 300 MG CAP PO SCH (16:00)
[2018-08-12] MEDS ORDERED: VANCOMYCIN PER PHARMACY MC PRN (16:00)
[2018-08-12] MEDS ORDERED: LACTOBACILLUS RHAMNOSUS GG 1 EACH CAP PO SCH (16:30)
[2018-08-12 16:36] LABS: MAGNESIUM 2.4 mg/dL (1.8-2.4); PHOSPHORUS 7.8 mg/dL (2.5-4.9)
[2018-08-12 16:37] LABS: THYROID STIMULATING HORMONE 3.38 uIU/mL (0.34-3.74)
--- NOTE | 2018-08-12 17:09 | NUR ---
SPUTUM CUP WAS PLACED AT BEDSIDE FOLLOWING EXPLANATION OF WHAT IS NEEDED AND HOW TO DO PROVIDE SAMPLE. PATIENT WAS UNABLE TO COUGH UP SPUTUM AT THIS TIME.
[2018-08-12] MEDS: HYDROcodone/APAP 7.5/325 MG 1 TAB PO PRN (17:12)
[2018-08-12] MEDS: DEXT 5% /NACL 0.9% 1,000 ML IV SCH (17:13)
--- NOTE | 2018-08-12 18:30 | NUR ---
SPOKE WITH PORTFOLIO ADMINISTRATOR LIYA, STATED HE RECEIVED A TELEPHONE ORDER FROM DR. WATSON AND WILL DO THE DIALYSIS SOON.
--- NOTE | 2018-08-12 19:00 | NUR ---
PT AWAKE, NO SOB NOTED. NO COMPLAINTS MADE. ENDORSED TO NEXT SHIFT NURSE FOR CONTINUITY OF CARE.
--- NOTE | 2018-08-12 19:30 | NUR ---
RECEIVED PT ON BED, EASILY AROUSABLE BUT SLEEPY, AAOX4, DENIES PAIN, OCCASIONAL DRY COUGH NOTED, VITAL SIGNS TAKEN, BP SLIGHTLY ELEVATED, DENIES CHEST PAIN, SAT-94% ON ROOM AIR, IVF INFUSING WELL, GAMEZ CATH IN PLACE WITH SMALL AMOUNT DARK FREDDIE URINE WITH SEDIMENTS, PARAPLEGIC, SAFETY MEASURES IN PLACE, FOR HEMODIALYSIS TONIGHT, CONSENT SIGNED, PLAN OF CARE DISCUSS, ON CONTACT ISOLATION, CALL LIGHT WITHIN REACH.
[2018-08-12 20:00] VITALS: BP 143/95
[2018-08-12] MEDS: levETIRAcetam 500 MG TAB PO SCH (20:44)
[2018-08-12] MEDS: PROMETH/CODEINE 6.25-10MG/5ML 5 ML UDC PO PRN (20:45)
--- NOTE | 2018-08-12 20:45 | NUR ---
MEDICATED PRN WITH COUGH MEDICATION, REFUSED CYMBALTA AND SENNA, STATED "JUST HOLD IT OFF FOR NOW", RISK AND BENEFITS EXPLAINED BUT PT STILL REFUSING, DUE KEPPRA CUT IN HALF PER REQUEST AND ABLE TO TO TOLERATE IT, ALL NEEDS ATTENDED.
[2018-08-12] MEDS: SENNA 8.6 MG TAB PO SCH (20:49)
[2018-08-12] MEDS: DULoxetine 30 MG CAPDR PO SCH (20:49)
[2018-08-12] MEDS ORDERED: traZODone 50 MG TAB PO PRN (21:00)
[2018-08-12] MEDS ORDERED: VANCOMYCIN 500 MG in DEXTROSE 5% 100 ML IV SCH (21:00)
[2018-08-12] MEDS ORDERED: RIVAROXABAN 10 MG TAB PO SCH (21:00)
[2018-08-12 22:45] LABS: ANION GAP 14.4 (8-16); POTASSIUM 3.4 mmol/L (3.5-5.1)
[2018-08-12 22:46] LABS: CREATININE 1.8 mg/dL (0.6-1.3)
[2018-08-12] MEDS: HYDROmorphone 1 MG/ML AMP IVP PRN (23:10)
--- NOTE | 2018-08-12 23:10 | NUR ---
HEMODIALYSIS DONE WITH 2L OUTPUT, VITAL SIGNS STABLE, DUE VANCOMYCIN IVPB ADMINISTERED, MEDICATED PRN FOR PAIN WITH DILAUDID IVP, O2 ATTACHED TO HUMIDIFIED AIR, MONITORED CLOSELY.
[2018-08-13] VITALS: BP 155/99
[2018-08-13 03:32] LABS: APPEARANCE,URINE CLOUDY (CLEAR); BILIRUBIN,URINE 2+ (NEGATIVE); BLOOD, URINE 3+ (NEGATIVE); COLOR,URINE BROWN (YELLOW); LEUKOCYTE ESTERASE ,URINE 2+ (NEGATIVE); NITRITE, URINE POSITIVE (NEGATIVE); UGLUCOSE NEGATIVE (NEGATIVE)
--- NOTE | 2018-08-13 03:40 | NUR ---
PT SLEEPING, EASILY AROUSABLE, VITAL SIGNS TAKEN, SAT-90% ON ROOM AIR, PUT BACK ON O2 2L/NC, SAT WENT UP TO 95-96%, ENCOURAGE TO KEEP O2 IN PLACE AT THIS TIME, VERBALIZED UNDERSTANDING, MONITORED CLOSELY.
[2018-08-13 03:52] LABS: BARBITURATE, URINE NEG. ng/ml (NEG <=200); BENZODIAZEPINE, URINE NEG. ng/mL (NEG <=200); CANNABINOID, URINE NEG. ng/mL (NEG <=50); COCAINE, URINE NEG. ng/mL (NEG <=300); OPIATE, URINE POS. ng/mL (NEG <=2000); PHENCYCLIDINE SCREEN,URINE NEG. ng/mL (NEG <=25)
[2018-08-13 04:00] VITALS: BP 125/86
[2018-08-13 04:36] LABS: RBC,URINE TOO NUMEROUS TO COUN /HPF (0-5); WBC,URINE TOO MANY TO COUNT /HPF (0-5)
[2018-08-13 04:37] LABS: HYALINE CASTS, URINE 0-10 /LPF (None Seen)
--- NOTE | 2018-08-13 05:03 | NUR ---
PT BACK FROM CT DEPT FOR CT CHEST WITHOUT CONTRAST, NO SOB NOTED AND DENIES PAIN AT THIS TIME, ATTEMPT TO GET CONSENT FOR PICC LINE INSERTION BUT PT WANTS TO HOLD OFF FROM PICC LINE AT THIS TIME UNLESS THEY WILL PLAN A GUIDED PLACEMENT IN THE X-RAY DEPT, PT HAS A GOOD PERIPHERAL LINE AND STATED "PICC LINE INSERTION ONLY A LAST RESORT", DR ALMARAZ MADE AWARE OF PT'S DECISION AND NACHO PETERSON MADE AWARE.
--- NOTE | 2018-08-13 07:10 | NUR ---
PT SLEEPING, EASILY AROUSABLE, NO DISTRESS NOTED, REPORT GIVEN TO ECHO RICE FOR CONTINUITY OF CARE.
--- NOTE | 2018-08-13 07:15 | NUR ---
PT SLEEPING, NO DISTRESS NOTED, REPORT GIVEN TO ECHO RICE FOR CONTINUITY OF CARE.
--- NOTE | 2018-08-13 07:16 | NUR ---
RECEIVED REPORT FROM ANIMATION PRODUCER NURSE. PATIENT IS SLEEPING IN BED EASILY AROUSABLE. A&O X 4. NO DISTRESS NOTED. CALL LIGHT WITHIN REACH. BED ALARM ON AND ON LOWEST POSITION.
[2018-08-13 07:31] LABS: BASOPHILS # (AUTO) 0.1 K/uL (0.00-0.22); BASOPHILS % (AUTO) 0.9 % (0.0-2.0); EOSINOPHILS # (AUTO) 0.1 K/uL (0-0.4); EOSINOPHILS % (AUTO) 0.4 % (0.0-4.0); HEMATOCRIT 24.8 % (36-48); HEMOGLOBIN 7.5 g/dL (12.0-16.0); LYMPHOCYTES # (AUTO) 1.6 K/uL (2.5-16.5); LYMPHOCYTES % (AUTO) 9.2 % (20.5-51.1); MEAN CORPUSCULAR HEMOGLOBIN 25 pg (27-31); MEAN CORPUSCULAR HGB CONC 31 g/dL (33-37); MEAN CORPUSCULAR VOLUME 80.3 fL (80-94); MONOCYTES # (AUTO) 0.7 K/uL (0.8-1.0); MONOCYTES % (AUTO) 3.9 % (1.7-9.3); NEUTROPHILS # (AUTO) 14.5 K/uL (1.8-7.7); NEUTROPHILS % (AUTO) 85.6 % (42.2-75.2); PLATELET COUNT (AUTO) 212 K/uL (140-450); RED BLOOD CELL COUNT(AUTO) 3.08 MIL/uL (4.20-5.40); RED CELL DISTRIBUTION WIDTH 23.8 % (11.6-13.7); WHITE BLOOD COUNT (AUTO) 16.9 K/uL (4.8-10.8)
[2018-08-13 07:45] LABS: ANION GAP 12.6 (8-16); CARBON DIOXIDE 24.9 mmol/L (21-32); CREATININE 2.1 mg/dL (0.6-1.3); POTASSIUM 3.5 mmol/L (3.5-5.1)
[2018-08-13 08:00] VITALS: BP 134/91
[2018-08-13 08:05] LABS: MAGNESIUM 1.6 mg/dL (1.8-2.4); PHOSPHORUS 4.1 mg/dL (2.5-4.9)
--- NOTE | 2018-08-13 08:47 | NUR ---
PATIENT HAS BEEN SCREENED AND CATEGORIZED HIGH NUTRITION RISK. PATIENT WILL BE SEEN WITHIN 1-2 DAYS OF ADMISSION. 08/13/18 08/14/[address]
[2018-08-13] MEDS ORDERED: MAG SULF 2000 MG/WATER PREMIX 50 ML IV ONE (08:55)
[2018-08-13] MEDS ORDERED: AZITHROMYCIN 250 MG TAB PO SCH (09:00)
[2018-08-13] MEDS: SENNA 8.6 MG TAB PO SCH ×2 (09:00→20:57)
[2018-08-13] MEDS: GABAPENTIN 300 MG CAP PO SCH (09:00)
[2018-08-13 09:07] LABS: T4 (THYROXINE) 6.6 ug/dL (4.5-12.0)
[2018-08-13] MEDS: LACTOBACILLUS RHAMNOSUS GG 1 EACH CAP PO SCH (09:48)
[2018-08-13] MEDS: DOCUSATE SODIUM 100 MG GELCAP PO SCH (09:48)
[2018-08-13] MEDS: FAMOTIDINE 20 MG TAB PO SCH (09:48)
[2018-08-13] MEDS: levETIRAcetam 500 MG TAB PO SCH ×2 (09:49→20:56)
--- NOTE | 2018-08-13 09:50 | NUR ---
PATIENT IN STABLE CONDITION TOLERATED MORNING MEDICATIONS WELL. PATIENT REFUSED GABAPENTIN AND SENNA. BENEFITS AND RISKED EXPLAINED PATIENT VERBALIZED UNDERSTANDING. CALL LIGHT WITHIN REACH.
--- NOTE | 2018-08-13 10:35 | NUR ---
SPECIMEN CUP ON PATIENT TABLE FOR SPUTUM SAMPLE EDUCATION PROVIDED TO PATIENT WITH ACKNOWLEDGEMENT ON THE PROCESS AND REASONING FOR SPUTUM COLLECTION
[2018-08-13] MEDS: ALBUTEROL SULFATE/IPRATROPIU 3 ML SOL IH PRN (10:38)
[2018-08-13] MEDS: HYDROmorphone 1 MG/ML AMP IVP PRN ×2 (10:39→18:55)
[2018-08-13] MEDS: MAGNESIUM SULFATE 1GM in DEXTROSE 5% 100 ML PREMIX IV SCH ×2 (10:52→12:23)
--- NOTE | 2018-08-13 11:51 | NUR ---
CALLED MORA TO LET HER KNOW DR. DOTY HAD ORDERED DIALYSIS DRY UF FOR TODAY AND DIALYSIS AGAIN FOR TOMORROW.
[2018-08-13 12:00] VITALS: BP 131/90
--- NOTE | 2018-08-13 13:19 | NUR ---
SPUTUM NOT COLLECTED. PT STATED SHE WAS NOT BEEN COUGHING UP ANY SPUTUM SINCE HER ADMISSION.
[2018-08-13] MEDS: LEVOFLOXACIN 250 MG/D5 PREMIX 50 ML IV SCH (13:36)
[2018-08-13] MEDS: ALBUTEROL SULFATE/IPRATROPIU 3 ML SOL IH SCH ×2 (14:13→19:38)
[2018-08-13] MEDS ORDERED: TUBERCULIN 5 TU/0.1 ML VIAL ID SCH (14:30)
[2018-08-13] MEDS: DEXT 5% /NACL 0.9% 1,000 ML IV SCH (15:30)
--- NOTE | 2018-08-13 15:58 | NUR ---
08/13/18 RD INITIAL ASSESSMENT COMPLETED PLEASE REFER TO NUTRITION ASSESSMENT UNDER CARE ACTIVITY FOR ESTIMATED NUTRITIONAL NEEDS. 1. CONTINUE RENAL DIET TOLERATED 2. RECOMMEND NEPRO QID. 3. RECOMMEND NEPHRO-ALEXANDRU. 4. RD TO FOLLOW-UP 2-3 DAYS, HIGH RISK KENDALL SALAZAR, RD
[2018-08-13 16:00] VITALS: BP 126/76
--- NOTE | 2018-08-13 16:55 | NUR ---
Manager Pricing Note: Chris Jimenes from [facility] , patient is on a 7 day bed hold. Addendum: 08/13/18 at 1657 by Liv ALVARADO Chris Jimenes from [facility] , patient is on a 7 day bed hold and is one of their superintendent terminal patients.
--- NOTE | 2018-08-13 19:33 | NUR ---
ENDORSED PT TO UNDERTAKER ASSISTANT NURSE FOR CONTINUITY OF CARE. PT STABLE AT THIS TIME.
--- NOTE | 2018-08-13 19:34 | NUR ---
RECEIVED REPORT FROM AM SHIFT AT THIS TIME. PT LYING COMFORTABLY IN BED, AWAKE & VERBAL, RESPIRATIONS EVEN & UNLABORED, NO SIGNS OF DISTRESS. CALL LIGHT WITHIN REACH & ENCOURAGED TO CALL STAFF FOR ASSISTANCE PRN. PT REPLIES "OK".
[2018-08-13 20:00] VITALS: BP 129/64
--- NOTE | 2018-08-13 20:56 | NUR ---
PT SITTING UP IN BED, AWAKE & VERBAL, WATCHING TV. VITAL SIGNS OBTAINED, NO C/O PAIN/DISCOMFORT. PT REFUSED CYMBALTA & SENNA. EXPLAINED INDICATIONS FOR MEDS. PT VERBALIZED UNDERSTANDING BUT CONTINUE TO REFUSE. PT STATES CYMBALTA & SENNA ARE INEFFECTIVE. PT REQUESTING FOR MAG CITRATE IN AM BECAUSE THAT'S WHAT SHE WAS TAKING PRIOR TO ADMISSION. WILL NOTIFY PHYSICIAN OF PT REQUEST. PT CLEAN & DRY AT THIS TIME. NO COUGHING NOTED. NOTIFIED PT RE: NEED FOR SPUTUM SPECIMEN. PT ABLE TO RETURN DEMONSTRATE PROPER DEEP BREATHING & COUGHING. PT NON-PRODUCTIVE AT THIS TIME. SPECIMEN CUP LEFT AT BEDSIDE. CALL LIGHT WITHIN REACH. AIRBORNE ISOLATION PRECAUTIONS IN PLACE.
[2018-08-13] MEDS: DULoxetine 30 MG CAPDR PO SCH (20:57)
--- NOTE | 2018-08-13 22:15 | NUR ---
PT ASLEEP IN BED, RESPIRATIONS EVEN & UNLABORED, FLACC 0, CALL LIGHT WITHIN REACH.
[2018-08-14] VITALS: BP 134/70
--- NOTE | 2018-08-14 00:10 | NUR ---
PT ON HIGH FOWLERS POSITION IN BED, C/O BACK PAIN & REQUESTING FOR DILAUDID. INFORMED PT THAT DILAUDID WILL BE DUE @ 0050, OFFERED Last 2 Left. PT STATES SHE WILL WAIT FOR DILAUDID. PT ALSO REQUESTS FOR LACTULOSE D/T FEELING OF CONSTIPATION. ABD SOFT WITH ACTIVE BOWEL SOUNDS ON ALL QUADRANTS. DR. ALMARAZ NOTIFIED & WILL F/U WITH PT. VITAL SIGNS OBTAINED. CALL LIGHT WITHIN REACH. AIRBORNE/CONTACT ISOLATION PRECAUTIONS IN PLACE.
[2018-08-14] MEDS ORDERED: LACTULOSE 20 GM/30 ML UDC PO SCH (00:30)
[2018-08-14] MEDS: HYDROmorphone 1 MG/ML AMP IVP PRN ×3 (00:48→22:47)
--- NOTE | 2018-08-14 02:08 | NUR ---
PT SLEEPING COMFORTABLY IN BED, RESPIRATIONS EVEN & UNLABORED ON O2 @ 2LPM VIA NC, FLACC 0. RT FA IV ACCESS ASYMPTOMATIC. DARK FREDDIE URINE PRESENT IN GAMEZ CATH COLLECTION BAG. CALL LIGHT WITHIN REACH.
--- NOTE | 2018-08-14 03:15 | NUR ---
PT REQUESTING FOR MAG CITRATE D/T LACTULOSE INEFFECTIVE. NO BM PRESENT. ABD SOFT WITH ACTIVE BOWEL SOUNDS. DR ALMARAZ NOTIFIED OF PT'S REQUEST. PHYSICIAN TO F/U.
[2018-08-14 04:00] VITALS: BP 142/84
[2018-08-14] MEDS ORDERED: MAGNESIUM CITRATE 300 ML BTL PO SCH (04:00)
--- NOTE | 2018-08-14 04:39 | NUR ---
MAG CITRATE GIVEN AT THIS TIME. PT ALERT & AWAKE, SITTING ON HIGH BROWN'S POSITION IN BED, RESPIRATIONS EVEN & UNLABORED. GAMEZ CATH DRAINING DARK FREDDIE URINE TO COLLECTION BAG. RT FA IV ACCESS ASYMPTOMATIC.
--- NOTE | 2018-08-14 06:00 | NUR ---
PT UNABLE TO FINISH BOTTLE OF MAG CITRATE, ABOUT 200ML REMAINING. PT STATES SHE IS STILL "WORKING ON IT", REFUSED TO HAVE BOTTLE TAKEN AWAY. ENCOURAGE TO FINISH MED FOR FULL EFFECT. PT VERBALIZED UNDERSTANDING. CALL LIGHT WITHIN REACH. RT FA IV ACCESS INTACT & ASYMPTOMATIC.
--- NOTE | 2018-08-14 06:46 | NUR ---
UNABLE TO COLLECT SPUTUM AT BUS CLEANER D/T NON-PRODUCTIVE COUGH. SPECIMEN CUP KEPT AT BEDSIDE. PT VERBALIZE UNDERSTANDING OF SPUTUM COLLECTION PROCEDURE.
--- NOTE | 2018-08-14 07:15 | NUR ---
RECEIVED PT FROM HEATING AND COOLING SYSTEMS ENGINEER NURSE, KENNY, PT IS AWAKE AND IN A SITTING POSITION ON THE BED WITH O2 AT 3L NC IN PLACE, SIDE RAILS ARE UP AND CALL LIGHT WITHIN REACH, GAMEZ CATHETER IN PLACE, PT VERBALIZED A PAIN RATE OF 8/10 AND WILL MEDICATE PT. PT HAS AN IV LINE ON THE RT FA G. 20 WITH D5NS AT 20 ML/HR, RUNNING, INTACT AND A RT SUBCLAVIAN IJ YEMI CATHETER FOR HEMODIALYSIS ACCESS. NO SIGN OF DISTRESS NOTED, AND WILL CONTINUE TO MONITOR PT.
[2018-08-14 07:27] LABS: BASOPHILS % (AUTO) 0.2 % (0.0-2.0); EOSINOPHILS # (AUTO) 0.1 K/uL (0-0.4); EOSINOPHILS % (AUTO) 0.4 % (0.0-4.0); HEMATOCRIT 24.5 % (36-48); HEMOGLOBIN 7.5 g/dL (12.0-16.0); LYMPHOCYTES # (AUTO) 1.7 K/uL (2.5-16.5); LYMPHOCYTES % (AUTO) 12.8 % (20.5-51.1); MEAN CORPUSCULAR HEMOGLOBIN 24 pg (27-31); MEAN CORPUSCULAR HGB CONC 31 g/dL (33-37); MEAN CORPUSCULAR VOLUME 79.6 fL (80-94); MONOCYTES # (AUTO) 0.9 K/uL (0.8-1.0); MONOCYTES % (AUTO) 7.3 % (1.7-9.3); NEUTROPHILS # (AUTO) 10.3 K/uL (1.8-7.7); NEUTROPHILS % (AUTO) 79.3 % (42.2-75.2); PLATELET COUNT (AUTO) 243 K/uL (140-450); RED BLOOD CELL COUNT(AUTO) 3.08 MIL/uL (4.20-5.40); WHITE BLOOD COUNT (AUTO) 12.9 K/uL (4.8-10.8)
[2018-08-14] MEDS: ALBUTEROL SULFATE/IPRATROPIU 3 ML SOL IH SCH ×3 (07:30→20:25)
[2018-08-14 07:41] LABS: ANION GAP 11.6 (8-16); CARBON DIOXIDE 26.6 mmol/L (21-32); CREATININE 2.5 mg/dL (0.6-1.3); POTASSIUM 3.2 mmol/L (3.5-5.1)
[2018-08-14 08:00] VITALS: BP 158/99
[2018-08-14] MEDS: levETIRAcetam 500 MG TAB PO SCH ×2 (08:20→20:52)
--- NOTE | 2018-08-14 08:25 | NUR ---
PT IS AWAKE AND REFUSED SOME OF THE AM MEDICATIONS, PT ONLY TOOK THE KEPPRA. PT VERBALIZED THAT SHE WANTS DULCOLAX AND MIRALAX FOR HER STOOL SOFTENER, WILL RELAY TO THE DOCTOR.
--- NOTE | 2018-08-14 08:30 | NUR ---
DR. TREVIÑO WAS INFORMED THAT PT REFUSED SOME OF THE MORNING MEDICATIONS AND WANTS DULCOLAX AND MIRALAX FOR HER STOOL SOFTENER, MD ACKNOWLEDGED AND SAID THAT HE WILL PUT UP AN ORDER FOR THE SAID MEDICATIONS.
[2018-08-14] MEDS ORDERED: HYDROmorphone 1 MG/ML AMP IVP SCH (08:32)
[2018-08-14] MEDS: DOCUSATE SODIUM 100 MG GELCAP PO SCH (08:33)
[2018-08-14] MEDS: GABAPENTIN 300 MG CAP PO SCH (08:34)
[2018-08-14] MEDS: LACTOBACILLUS RHAMNOSUS GG 1 EACH CAP PO SCH (08:34)
[2018-08-14] MEDS: FAMOTIDINE 20 MG TAB PO SCH (08:34)
[2018-08-14] MEDS: VIT-B COMP/VIT-C/FOLIC ACID 1 TAB PO SCH (08:34)
[2018-08-14] MEDS: SENNA 8.6 MG TAB PO SCH (08:35)
[2018-08-14] MEDS ORDERED: BISACODYL 5 MG TABEC PO SCH (09:00)
[2018-08-14] MEDS ORDERED: MAG SULF 2000 MG/WATER PREMIX 50 ML IV SCH (10:00)
[2018-08-14] MEDS ORDERED: POTASSIUM CHLORIDE 40 MEQ, LIDOCAINE 1% 25 MG in NACL 0.9% 250 ML IV SCH (10:00)
--- NOTE | 2018-08-14 11:08 | NUR ---
VERIFIED WITH DR. TREVIÑO REGARDING THE MAGNESIUM RIDER ORDERED FOR THE PT, MG LEVEL IS 1.[address] TREVIÑO SAID TO GIVE THE MG RIDER BECAUSE HE WANTS THE MG LEVEL OF THE PT TO BE AT THE LEVEL OF 2. ACKNOWLEDGED AND WILL CARRY OUT ORDER.
[2018-08-14] MEDS: POLYETHYLENE GLYCOL 17 GM/PKT PO SCH (11:26)
--- NOTE | 2018-08-14 11:28 | NUR ---
GAVE MAGNESOIUM RIDER TO THE PT PER DR. TREVIÑO'S ORDER. PT IS TOLERATING IT AND WILL CONTINUE TO MONITOR PT.
[2018-08-14] MEDS: CYCLOBENZAPRINE 10 MG TAB PO SCH ×3 (11:29→16:31)
--- NOTE | 2018-08-14 11:30 | NUR ---
PT WAS AWAKEN AND WAS ADVISED ABOUT THE FLEXERIL BUT PT REFUSED TO TAKE THE MEDICATION.
--- NOTE | 2018-08-14 11:50 | NUR ---
PT IS AWAKE AND WAS POSITIONED UPRIGHT, VITAL SIGNS TAKEN AND IS WITHIN NORMAL LIMITS, NO SIGN OF DISTRESS NOTED AND WILL CONTINUE TO MONITOR PT.
[2018-08-14 12:00] VITALS: BP 139/94
--- NOTE | 2018-08-14 12:59 | NUR ---
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 ACKNOWLEDGED AND WILL INFORM THE DOCTOR.
--- NOTE | 2018-08-14 13:05 | NUR ---
INFORMED DR. TREVIÑO OF PT POSITIVE FOR MRSA OF NARES. SAID WILL PLACE AN ORDER.
--- NOTE | 2018-08-14 13:34 | NUR ---
SPUTUM CUP AT BEDSIDE PT UNABLE TO PROVIDE SPECIMEN. PT HAS DRY NON PRODUCTIVE COUGH AT THIS TIME.
--- NOTE | 2018-08-14 13:54 | NUR ---
PT IS ASLEEP AND RESPIRATIONS EVEN,PT'S POTASSIUM LEVEL IS 3.2 SO PT WAS GIVEN POTASSIUM IV WITH LIDOCAINE AT 68ML/HR AT A VOLUME OF 250ML. WILL MONITOR PT.
--- NOTE | 2018-08-14 14:09 | NUR ---
Resource Conservation Specialist Note: I faxed patient's medical information to [facility] . I confirmed with Colby from [facility].
--- NOTE | 2018-08-14 15:00 | NUR ---
DR. BRITTON CAME TO THE PT'S ROOM AND SPOKE TO THE PT REGARDING THE PLAN OF CARE, PT VERBALIZED UNDERSTANDING WITH WHAT DR. BRITTON TOLD HER. DR. BRITTON MADE A VERBAL ORDER FOR AN INCENTIVE SPIROMETER FOR THE PT. WILL CARRY OUT MD ORDER.
[2018-08-14 16:00] VITALS: BP 132/96
--- NOTE | 2018-08-14 16:50 | NUR ---
DIALYSIS WAS STARTED TO THE PT NOW. VITAL SIGNS WAS TAKEN AND IS STABLE.
[2018-08-14] MEDS: LEVOFLOXACIN 250 MG/D5 PREMIX 50 ML IV SCH (17:02)
--- NOTE | 2018-08-14 18:30 | NUR ---
PT IS AWAKE AND HAVING HER DINNER, DIALYSIS IS TILL ON GOING. NO SIGN OF DISTRESS NOTED ON THE PT. WILL MONITOR PT.
--- NOTE | 2018-08-14 19:20 | NUR ---
ENDORSED PT TO BURRITO MAKER NURSEKENNY FOR CONTINUITY OF CARE. PT IS AWAKE AND STILL ON DIALYSIS BUT STABLE AT THIS TIME.
--- NOTE | 2018-08-14 19:21 | NUR ---
RECEIVED BEDSIDE REPORT FROM AM SHIFT NURSE. PT UNDERGOING DIALYSIS AT THIS TIME WITH DIALYSIS NURSE AT BEDSIDE. PT DROWSY BUT ABLE TO OPEN EYES & RESPOND VERBALLY. RESPIRATIONS EVEN & UNLABORED. CALL LIGHT WITHIN REACH.
[2018-08-14 20:00] VITALS: BP 131/91
--- NOTE | 2018-08-14 20:10 | NUR ---
PER DIALYSIS NURSE, DIALYSIS COMPLETED AT THIS TIME WITH 1500L OF FLUID OUT. PT DROWSY, VERBALLY RESPONSIVE, RESPIRATIONS EVEN & UNLABORED. FULL BODY ASSESSMENT DONE & VITAL SIGNS OBTAINED. F/C INTACT, RT FA IV ACCESS INTACT & ASYMPTOMATIC, & RT IJ YEMI CATH DRESSING CLEAN, DRY, & INTACT. CALL LIGHT WITHIN REACH. CONTACT ISOLATION PRECAUTIONS IN PLACE. Addendum: 08/14/18 at 2301 by Sofy Castro RN CORRECTION FOR DIALYSIS OUTPUT TO 1500ML.
--- NOTE | 2018-08-14 20:38 | NUR ---
PATIENT IS UNABLE TO GIVE SPUTUM SAMPLE. PT IS IN PAIN WHEN SHE COUGHS. ALSO UNABLE TO DO INCENTIVE. SPIROMETER. PT STATES SHES IN PAIN
[2018-08-14] MEDS: MIRTAZAPINE 15 MG TAB PO SCH (20:52)
[2018-08-14] MEDS: CARVEDILOL 3.125 MG TAB PO SCH (20:52)
[2018-08-14] MEDS: DULoxetine 30 MG CAPDR PO SCH (20:53)
[2018-08-14] MEDS: HYDROcodone/APAP 7.5/325 MG 1 TAB PO PRN (21:04)
--- NOTE | 2018-08-14 21:10 | NUR ---
DR. DOUGLAS CAME IN TO SEE PT AT BEDSIDE.
--- NOTE | 2018-08-14 22:04 | NUR ---
PT SLEEPING IN BED WITH HOB @ 30DEG, RESPIRATIONS EVEN & UNLABORED, FLACC 0. CALL LIGHT WITHIN REACH. CONTACT ISOLATION PRECAUTIONS IN PLACE.
[2018-08-14] MEDS: PROMETH/CODEINE 6.25-10MG/5ML 5 ML UDC PO PRN (23:43)
--- NOTE | 2018-08-14 23:43 | NUR ---
OBSERVED PT WITH EPISODE OF PERSISTENT DRY COUGH. PT AWAKE & STATES COUGHING IS BOTHERSOME & HURTS HER CHEST. PT REQUESTS FOR COUGH SYRUP & BREATHING TX. RT NOTIFIED OF BREATHING TX REQUEST. SPOKE TO DR ALMARAZ IF OK TO GIVE PHENERGAN WITH CODEINE WITH DILAUDID GIVEN @ 2357. PER PHYSICIAN, OK TO GIVE D/T PT HIGH TOLERANCE WITH NARCOTICS. PHENERGAN WITH CODEINE ADMINISTERED. Addendum: 08/14/18 at 2351 by Sofy Castro RN ADDENDUM: PT RR 20/MIN, NONLABORED.
[2018-08-14] MEDS: ALBUTEROL SULFATE/IPRATROPIU 3 ML SOL IH PRN (23:44)
[2018-08-15] VITALS: BP 122/81
--- NOTE | 2018-08-15 00:04 | NUR ---
PT RESTING COMFORTABLY IN BED, NO COUGH NOTED. PT STATES SHE FEELS BETTER. VITAL SIGNS OBTAINED. PT REQUESTED TO HAVE ALL LIGHTS TURNED OFF IN ROOM & KEEP DOOR CLOSED. CALM & QUIET ENVIRONMENT PROVIDED. CALL LIGHT PLACED WITHIN REACH & ENCOURAGED PT TO CALL STAFF FOR ASSISTANCE PRN. PT AGREE. RT FA IV ACCES INTACT & ASYMPTOMATIC. CONTACT ISOLATION PRECAUTIONS IN PLACE.
--- NOTE | 2018-08-15 00:15 | NUR ---
SPOKE TO REBECA PHARMACIST RE: RANDOM VANCO LEVEL RESULT. PER ROCKY JOSE PHARMACIST TO F/U.
--- NOTE | 2018-08-15 02:00 | NUR ---
PT SLEEPING SOUNDLY IN BED IN SEMI-FOWLERS, RESPIRATIONS EVEN & UNLABORED, NASAL CANNULA IN PLACE WITH O2@2LPM, FLACC 0, NO SIGNS OF DISTRESS. RT FA IV ACCESS INTACT & ASYMPTOMATIC. CALL LIGHT WITHIN REACH. CONTACT ISOLATION PRECAUTIONS IN PLACE.
--- NOTE | 2018-08-15 02:40 | NUR ---
PT CALLED REQUESTING FOR THROAT LOZENGE. ASSESSED PT AT BEDSIDE, PT STATES HER THROAT IS ITCHY & WANTS SOME THROAT LOZENGE FOR COMFORT. OFFERED WARM WATER TO REDUCE THROAT DISCOMFORT. PT REFUSED & STATES SHE WOULD RATHER HAVE LOZENGES. DR ALMARAZ NOTIFIED. PHYSICIAN TO F/U WITH PT.
[2018-08-15] MEDS: BENZOCAINE/MENTHOL 1 LOZ MM PRN ×4 (02:58→23:43)
--- NOTE | 2018-08-15 02:58 | NUR ---
CEPACOL LOZENGE GIVEN AT THIS TIME FOR C/O ITCHY THROAT. PT AWAKE, VERBAL, RESPIRATIONS EVEN & UNLABORED. CALL LIGHT WITHIN REACH.
--- NOTE | 2018-08-15 03:58 | NUR ---
PT ASLEEP AT THIS TIME IN SEMIFOWLERS POSITION. CEPACOL LOZENGE CONSUMED. RESPIRATIONS EVEN & UNLABORED ON O2 @ 2LPM VIA NC. CALL LIGHT WITHIN REACH. PER SHORT HAUL DRIVER, PT REFUSED TO BE REPOSITIONED WHEN OFFERED. F/C INTACT WITH MIN AMOUNT DARK BROWN URINE IN COLLECTION BAG. CONTACT ISOLATION PRECAUTIONS IN PLACE.
[2018-08-15 04:00] VITALS: BP 122/87
[2018-08-15] MEDS: HYDROmorphone 1 MG/ML AMP IVP PRN (05:16)
--- NOTE | 2018-08-15 05:16 | NUR ---
PT C/O PAIN & ITCHY THROAT, REQUESTS FOR DILAUDID & CEPACOL. MEDS ADMINISTERED. PT AWAKE, VERBAL, SITTING AT SEMI-FOWLERS POSITION, RESPIRATIONS EVEN & UNLABORED ON O2 @ 2LPM VIA NC. RT FA IV ACCESS SITE FLUSHED WITH NS, NO SIGNS OF COMPLICATION. CALL LIGHT WITHIN REACH. CONTACT ISOLATION PRECAUTIONS IN PLACE.
--- NOTE | 2018-08-15 06:15 | NUR ---
PT ASLEEP IN SEMI-FOWLERS POSITION, RESPIRATIONS EVEN & UNLABORED ON O2 @ 2LPM VIA NC. RT FA IV ACCESS SITE INTACT & ASYMPTOMATIC. CALL LIGHT WITHIN REACH. CONTACT ISOLATION PRECAUTIONS IN PLACE.
[2018-08-15 06:40] LABS: BASOPHILS % (AUTO) 0.1 % (0.0-2.0); EOSINOPHILS % (AUTO) 0.1 % (0.0-4.0); HEMATOCRIT 24.6 % (36-48); HEMOGLOBIN 7.5 g/dL (12.0-16.0); LYMPHOCYTES # (AUTO) 1.6 K/uL (2.5-16.5); LYMPHOCYTES % (AUTO) 14.9 % (20.5-51.1); MEAN CORPUSCULAR HEMOGLOBIN 25 pg (27-31); MEAN CORPUSCULAR HGB CONC 31 g/dL (33-37); MEAN CORPUSCULAR VOLUME 80.9 fL (80-94); MONOCYTES # (AUTO) 0.8 K/uL (0.8-1.0); NEUTROPHILS # (AUTO) 8.4 K/uL (1.8-7.7); NEUTROPHILS % (AUTO) 77.9 % (42.2-75.2); PLATELET COUNT (AUTO) 205 K/uL (140-450); RED BLOOD CELL COUNT(AUTO) 3.04 MIL/uL (4.20-5.40); RED CELL DISTRIBUTION WIDTH 23.5 % (11.6-13.7); WHITE BLOOD COUNT (AUTO) 10.8 K/uL (4.8-10.8)
[2018-08-15 06:42] LABS: ANION GAP 8.2 (8-16); CARBON DIOXIDE 30.9 mmol/L (21-32); CREATININE 1.7 mg/dL (0.6-1.3); POTASSIUM 4.1 mmol/L (3.5-5.1)
[2018-08-15] MEDS: ALBUTEROL SULFATE/IPRATROPIU 3 ML SOL IH SCH ×3 (06:42→19:29)
--- NOTE | 2018-08-15 06:42 | NUR ---
pt sleeping with no signs of distress noted at this time no hhn given
[2018-08-15 06:51] LABS: PHOSPHORUS 2.8 mg/dL (2.5-4.9)
--- NOTE | 2018-08-15 07:10 | NUR ---
BEDSIDE REPORT GIVEN TO AM SHIFT NURSE.
--- NOTE | 2018-08-15 07:29 | NUR ---
RECEIVED REPORT FROM USER EXPERIENCE RESEARCHER ECHO COX AT BEDSIDE. PATIENT IS RESTING IN BED, AO X4. NO COMPLAINTS OF PAIN OR DISCOMFORT. ON CONTACT PRECAUTIONS FOR MRSA NARES AND HX ESBL URINE. INCENTIVE SPIROMETER AT BEDSIDE, WILL ENCOURAGE PATIENT TO USE. LUNG SOUNDS ARE DIMINISHED. SATURATING WELL ON 2L NC. RT AND PATIENT AWARE THAT SPUTUM CULTURE TO BE COLLECTED. SKIN INTACT. SCAR ON RT HIP. ON HD FRIDAY AND FRIDAYS THROUGH RT IJ YEMI CATH. IV SITE ON RT FA 20G IS PATENT, ON SL. ALL SAFETY PRECAUTIONS IN PLACE, WILL CONTINUE TO MONITOR. Addendum: 08/15/18 at 1328 by Ileana Shabazz Meng, RN BILATERAL LE 2+ PITTING EDEMA. F/C IN PLACE, DRAINING DARK FREDDIE URINE.
[2018-08-15 08:00] VITALS: BP 113/82
[2018-08-15] MEDS: levETIRAcetam 500 MG TAB PO SCH ×2 (09:00→20:53)
[2018-08-15] MEDS: GABAPENTIN 300 MG CAP PO SCH (09:00)
[2018-08-15] MEDS: LACTOBACILLUS RHAMNOSUS GG 1 EACH CAP PO SCH (09:00)
[2018-08-15] MEDS: amLODIPine 5 MG TAB PO SCH (09:00)
[2018-08-15] MEDS ORDERED: BISACODYL 5 MG TABEC PO SCH (09:00)
[2018-08-15] MEDS: LISINOPRIL 5 MG TAB PO SCH (09:00)
[2018-08-15] MEDS: VIT-B COMP/VIT-C/FOLIC ACID 1 TAB PO SCH (09:00)
--- NOTE | 2018-08-15 09:40 | NUR ---
PATIENT REFUSED KEPPRA, CULTURELLE, NEURONTIN, LISINOPRIL, NEPHRO-ALEXANDRU. EXPLAINED INDICATIONS WELL RISKS AND BENEFITS RELATED TO MEDICATION REFUSAL. PATIENT VERBALIZED UNDERSTANDING BUT CONTINUES TO REFUSE.
[2018-08-15] MEDS: POLYETHYLENE GLYCOL 17 GM/PKT PO SCH (09:43)
[2018-08-15] MEDS: DOCUSATE SODIUM 100 MG GELCAP PO SCH ×2 (09:43→20:11)
--- NOTE | 2018-08-15 09:43 | NUR ---
08/15/18 RD FOLLOW UP COMPLETED PLEASE REFER TO NUTRITION PROGRESS NOTE UNDER CARE ACTIVITY FOR ESTIMATED NUTRITION NEEDS. RD RECOMMENDATIONS: 1. CONTINUE RENAL DIET TOLERATED. 2. CONTINUE ON NEPROVITES AND NEPRO 1 CAN TID TOLERATED. RAMONA PEDERSON, , RDN
[2018-08-15] MEDS: CARVEDILOL 3.125 MG TAB PO SCH ×2 (09:44→20:52)
[2018-08-15] MEDS: FAMOTIDINE 20 MG TAB PO SCH (09:46)
[2018-08-15] MEDS: MUPIROCIN CA NASAL 2% 1GM TUBE NS SCH (09:46)
[2018-08-15] MEDS: CYCLOBENZAPRINE 10 MG TAB PO SCH ×3 (09:46→16:01)
[2018-08-15] MEDS: CHLORHEXADINE GLUC 2% CLOTH TP SCH (09:47)
[2018-08-15] MEDS ORDERED: VANCOMYCIN 500 MG in DEXTROSE 5% 100 ML IV SCH (10:00)
[2018-08-15] MEDS: BENZONATATE 100 MG CAPLF PO PRN ×2 (10:01→20:11)
--- NOTE | 2018-08-15 10:45 | NUR ---
NATIONAL SALES TRAINER AT BEDSIDE TO START HD. Addendum: 08/15/18 at 1118 by Ileana Shabazz Meng RN NATIONAL SALES TRAINER AWARE THAT PATIENT RECEIVED COREG 3.125 MG THIS MORNING.
--- NOTE | 2018-08-15 10:59 | NUR ---
DR. TENORIO HAS BEEN NOTIFIED THAT THERE IS NO TYPE AND SCREEN FOR PT. DOCTOR WILL PUT IN ORDER AND WILL CONFIRM THE NEED FOR 2 UNITS BLOOD TO BE TRANSFUSED DURING HD TODAY.
[2018-08-15 12:00] VITALS: BP 139/99
[2018-08-15] MEDS ORDERED: POLYETHYLENE GLYCOL 17 GM/PKT PO SCH (12:50)
--- NOTE | 2018-08-15 13:00 | NUR ---
DR. TENORIO NOTIFIED THAT CURRENT PAIN REGIMEN IS NOT ADEQUATE FOR PAIN CONTROL. DOCTOR TO CHANGE THE PAIN REGIMEN.
--- NOTE | 2018-08-15 13:02 | NUR ---
pt sleeping with no signs of distress noted and dialysis in process no hhn given
[2018-08-15] MEDS: HYDROmorphone PFS 2 MG/ML SYR IVP PRN ×2 (13:19→19:52)
--- NOTE | 2018-08-15 14:00 | NUR ---
PER DR. TENORIO, BLOOD WILL NOT BE INFUSED DURING HD TODAY.
--- NOTE | 2018-08-15 14:10 | NUR ---
2L REMOVED PER HD RN. WILL CONTINUE TO MONITOR.
[2018-08-15] MEDS ORDERED: SODIUM FERRIC GLUCONATE 125 MG in NACL 0.9% 100 ML IV SCH (15:00)
[2018-08-15] MEDS: LEVOFLOXACIN 250 MG/D5 PREMIX 50 ML IV SCH (15:02)
[2018-08-15 16:00] VITALS: BP 129/86
[2018-08-15] MEDS: FERROUS SULFATE 325 MG TABEC PO SCH (16:02)
--- NOTE | 2018-08-15 17:00 | NUR ---
PATIENT INQUIRING ABOUT NEXT DILAUDID DOSE. EXPLAINED DILAUDID IS Q6 HOURS. PT STATES PAIN IS 2/10 TOLERABLE AT THIS TIME. WILL CONTINUE TO MONITOR.
--- NOTE | 2018-08-15 19:15 | NUR ---
GAVE REPORT TO ARCHITECTURAL ASSOCIATE RN AT BEDSIDE. PT IN STABLE CONDITION.
--- NOTE | 2018-08-15 19:15 | NUR ---
RECEIVED REPORT FROM DAY SHIFT NURSE, EVITA, AT PT BEDSIDE. PT IN STABLE CONDITION. PT C/O PAIN LET PT KNOW I WILL MEDICATE ONCE I AM DONE RECEIVING REPORT. PT IS A/O X4. PT HAS R IJ YEMI CATH. DRESSING IS DRY AND INTACT. PT HAS R FA 20G SALINE LOCKED. IV IS PATIENT AND INTACT. PT HAS BILATERAL LOWER EXTREMITY EDEMA. PT HAS GAMEZ CATHETER IN PLACE DRAINING YELLOW URINE. SKIN IS INTACT. BED IS LOCKED, LOW POSITION, WITH SIDE RAILS UP X2. BOARD UPDATED. CALL LIGHT IS WITHIN REACH. WILL CONTINUE TO MONITOR PT.
--- NOTE | 2018-08-15 19:52 | NUR ---
PT C/O PAIN. DILAUDID GIVEN. WILL CONTINUE TO MONITOR.
[2018-08-15 20:00] VITALS: BP 138/94
--- NOTE | 2018-08-15 20:11 | NUR ---
SCHEDULED MEDICATION, COLACE GIVEN. PT C/O COUGH, TESSALON PERLES GIVEN. PT REFUSING ALL OTHER SCHEDULED MEDICATIONS AT THIS TIME, WILL TRY AGAIN LATER. PT ABLE TO COUGH UP SPUTUM SAMPLE. COLLECTED AND WILL BE SENT TO LAB. WILL CONTINUE TO MONITOR PT.
[2018-08-15] MEDS: DULoxetine 30 MG CAPDR PO SCH (20:52)
[2018-08-15] MEDS: MIRTAZAPINE 15 MG TAB PO SCH (20:53)
--- NOTE | 2018-08-15 20:54 | NUR ---
PT REFUSING ALL OTHER SCHEDULED MEDICATIONS. PT STATED "I DO NOT WANT TO WASTE MY STOMACH ON UNNECESSARY MEDICATIONS." PT ALSO STATED "I NO LONGER TAKE CYMBALTA OR REMERON." EXPLAINED TO PT THAT THE SCHEDULED COREG WAS TO CONTROL BP. PT STILL REFUSED MEDICATION. WILL CONTINUE TO MONITOR PT.
--- NOTE | 2018-08-15 22:50 | NUR ---
PT ASLEEP IN BED. NO SIGNS OR SYMPTOMS OF DISTRESS. WILL CONTINUE TO MONITOR.
[2018-08-15] MEDS ORDERED: ALBUTEROL SULFATE/IPRATROPIU 3 ML SOL IH PRN (23:10)
[2018-08-15] MEDS: PROMETH/CODEINE 6.25-10MG/5ML 5 ML UDC PO PRN (23:43)
--- NOTE | 2018-08-15 23:43 | NUR ---
PT C/O COUGH, PHENERGAN/CODEINE GIVEN. PT ALSO REQUESTING THROAT LOZENGE, GIVEN. PT TOLERATED WELL. ALL OTHER PT NEEDS ARE MET AT THIS TIME. WILL CONTINUE TO MONITOR.
[2018-08-16] VITALS: BP 119/93
--- NOTE | 2018-08-16 01:12 | NUR ---
PT ASLEEP IN BED. NO SIGNS OR SYMPTOMS OF DISTRESS. WILL CONTINUE TO MONITOR.
[2018-08-16] MEDS: HYDROmorphone PFS 2 MG/ML SYR IVP PRN ×4 (02:53→20:56)
--- NOTE | 2018-08-16 02:53 | NUR ---
PT C/O PAIN. DILAUDID GIVEN. WILL CONTINUE TO MONITOR PT.
[2018-08-16 04:00] VITALS: BP 133/91
--- NOTE | 2018-08-16 05:00 | NUR ---
PT ASLEEP IN BED. NO SIGNS OR SYMPTOMS OF DISTRESS. WILL CONTINUE TO MONITOR PT.
--- NOTE | 2018-08-16 06:36 | NUR ---
PATIENT IS ASLEEP AND RESTING COMFORTABLY. NO DISTRESS OR SOB NOTED. VITALS ARE STABLE. WILL RETURN TO MONITOR.
[2018-08-16] MEDS: ALBUTEROL SULFATE/IPRATROPIU 3 ML SOL IH SCH ×3 (06:40→19:24)
--- NOTE | 2018-08-16 07:05 | NUR ---
ENDORSED PT TO DAY SHIFT NURSE FOR CONTINUITY OF CARE. PT IN STABLE CONDITION.
--- NOTE | 2018-08-16 07:26 | NUR ---
RECEIVED REPORT FROM SILICA FILTER OPERATOR RN. PT IN STABLE CONDITION, SLEEPING IN BED, AROUSABLE BY VOICE. NO COMPLAINTS OF PAIN OR DISCOMFORT AT THIS TIME. SKIN INTACT. LUNGS SOUNDS DIMINISHED. PT IS BEDBOUND. IV SITE PATENT AND ASYMPTOMATIC. RIGHT IJ YEMI CATH IN PLACE FOR HD ACCESS. F/C IN PLACE, DRAINING URINE. BILAT LE 1+ PITTING EDEMA NOTED. ALL SAFETY PRECAUTIONS IN PLACE, WILL CONTINUE TO MONITOR.
[2018-08-16 08:00] VITALS: BP 133/88
[2018-08-16] MEDS: FERROUS SULFATE 325 MG TABEC PO SCH ×2 (08:00→16:41)
[2018-08-16 08:02] LABS: BASOPHILS # (AUTO) 0.1 K/uL (0.00-0.22); BASOPHILS % (AUTO) 0.6 % (0.0-2.0); EOSINOPHILS # (AUTO) 0.1 K/uL (0-0.4); EOSINOPHILS % (AUTO) 0.5 % (0.0-4.0); HEMATOCRIT 27.4 % (36-48); HEMOGLOBIN 8.1 g/dL (12.0-16.0); LYMPHOCYTES # (AUTO) 2.4 K/uL (2.5-16.5); LYMPHOCYTES % (AUTO) 18.7 % (20.5-51.1); MEAN CORPUSCULAR HEMOGLOBIN 24 pg (27-31); MEAN CORPUSCULAR HGB CONC 30 g/dL (33-37); MEAN CORPUSCULAR VOLUME 81.3 fL (80-94); MONOCYTES # (AUTO) 1.1 K/uL (0.8-1.0); MONOCYTES % (AUTO) 8.8 % (1.7-9.3); NEUTROPHILS % (AUTO) 71.4 % (42.2-75.2); PLATELET COUNT (AUTO) 248 K/uL (140-450); RED BLOOD CELL COUNT(AUTO) 3.37 MIL/uL (4.20-5.40); RED CELL DISTRIBUTION WIDTH 24.2 % (11.6-13.7); WHITE BLOOD COUNT (AUTO) 12.7 K/uL (4.8-10.8)
[2018-08-16 08:08] LABS: ANION GAP 8.9 (8-16); CARBON DIOXIDE 29.5 mmol/L (21-32); CREATININE 1.7 mg/dL (0.6-1.3); POTASSIUM 3.4 mmol/L (3.5-5.1)
[2018-08-16 08:13] LABS: MAGNESIUM 1.7 mg/dL (1.8-2.4)
--- NOTE | 2018-08-16 08:37 | NUR ---
PATIENT REFUSED FERR SULFATE. EXPLAINED THE INDICATION FOR MEDICATION AND RISKS AND BENEFITS. PT CONTINUES TO REFUSE. PT IS VERY PARTICULAR ABOUT WHICH PILLS SHE WANTS TO TAKE.
[2018-08-16] MEDS ORDERED: GENTAMICIN PER PHARMACY MC PRN (08:55)
[2018-08-16] MEDS: POLYETHYLENE GLYCOL 17 GM/PKT PO SCH (08:58)
[2018-08-16] MEDS: CHLORHEXADINE GLUC 2% CLOTH TP SCH (08:58)
[2018-08-16] MEDS: levETIRAcetam 500 MG TAB PO SCH ×2 (09:00→20:57)
[2018-08-16] MEDS: ASCORBIC ACID 500 MG TAB PO SCH (09:00)
[2018-08-16] MEDS: DOCUSATE SODIUM 100 MG GELCAP PO SCH ×2 (09:00→20:57)
[2018-08-16] MEDS: amLODIPine 5 MG TAB PO SCH (09:00)
[2018-08-16] MEDS: GABAPENTIN 300 MG CAP PO SCH (09:00)
[2018-08-16] MEDS: CARVEDILOL 3.125 MG TAB PO SCH ×2 (09:00→20:58)
[2018-08-16] MEDS: FAMOTIDINE 20 MG TAB PO SCH (09:00)
[2018-08-16] MEDS: VIT-B COMP/VIT-C/FOLIC ACID 1 TAB PO SCH (09:00)
[2018-08-16] MEDS: LISINOPRIL 5 MG TAB PO SCH (09:00)
[2018-08-16] MEDS: LACTOBACILLUS RHAMNOSUS GG 1 EACH CAP PO SCH (09:00)
--- NOTE | 2018-08-16 09:15 | NUR ---
PATIENT REFUSED BP MEDS AND OTHER SCHEDULED MEDS. EXPLAINED INDICATION WELL RISKS AND BENEFITS. PT VERBALIZED UNDERSTANDING BUT CONTINUES TO REFUSE. WILL NOTIFY MD. Addendum: 08/16/18 at 1503 by Ileana Shabazz Meng RN DILAUDID IVP ADMINISTERED FOR 8 PAIN OF BACK AND CHEST/RIBS. PAIN AGGRAVATED BY COUGHING. COUGH IS NON-PRODUCTIVE AT THIS TIME.
--- NOTE | 2018-08-16 10:16 | NUR ---
CALLED PHARMACY FOR BACTROBAN FOR MRSA NARES. PHARMACY WILL SEND TO UNIT.
[2018-08-16] MEDS ORDERED: GENTAMICIN 80 MG in DEXTROSE 5% 100 ML IV SCH (11:00)
[2018-08-16] MEDS: MUPIROCIN CA NASAL 2% 1GM TUBE NS SCH (11:09)
--- NOTE | 2018-08-16 11:17 | NUR ---
SCHEDULED IV ABX ADMINISTERED AT THIS TIME. PT IS SLEEPING IN BED. WILL CONTINUE TO MONITOR.
[2018-08-16 12:00] VITALS: BP 129/94
[2018-08-16] MEDS: MEROPENEM 500 MG in NACL 0.9% 50 ML IV SCH (13:48)
--- NOTE | 2018-08-16 13:48 | NUR ---
SCHEDULED IV ABX ADMINISTERED PER DOCTOR ORDERS. WILL MONITOR FOR ANY REACTIONS.
[2018-08-16] MEDS ORDERED: MAG SULF 2000 MG/WATER PREMIX 50 ML IV ONE (15:00)
[2018-08-16] MEDS: BENZOCAINE/MENTHOL 1 LOZ MM PRN ×2 (15:29→20:59)
[2018-08-16 16:00] VITALS: BP 120/87
[2018-08-16] MEDS ORDERED: POTASSIUM CHLORIDE 10 MEQ TABER PO SCH (16:00)
[2018-08-16] MEDS ORDERED: SODIUM FERRIC GLUCONATE 125 MG in NACL 0.9% 100 ML IV SCH (16:00)
[2018-08-16] MEDS: MAGNESIUM SULFATE 1GM in DEXTROSE 5% 100 ML PREMIX IV SCH ×2 (16:36→19:14)
--- NOTE | 2018-08-16 16:36 | NUR ---
SCHEDULED MAG SULFATE ADMINISTERED AT THIS TIME. PT SLEEPING IN BED, AROUSABLE BY VOICE. PT IS LETHARGIC. WILL CONTINUE TO MONITOR.
--- NOTE | 2018-08-16 18:00 | NUR ---
NOTIFIED DR. ALMARAZ THAT PATIENT HAS BEEN REFUSING FOOD FOR THE PAST TWO DAYS.
--- NOTE | 2018-08-16 19:25 | NUR ---
REPORT GIVEN TO CRAS RN AT BEDSIDE. PT IN STABLE CONDITION.
--- NOTE | 2018-08-16 19:26 | NUR ---
RECEIVED PT FROM EVITA DODGE KPT IS AAOX4 PARAPLEGIC YEMI CATH ON RT IJ FOR DIALYSIS AND IV ON RT FA INFUSING WELL TKO ON TELEMETRY ST PT REPOSITIONED INITIAL ASSESSMENT DONE.
[2018-08-16 20:00] VITALS: BP 132/87
[2018-08-16] MEDS: MIRTAZAPINE 15 MG TAB PO SCH (20:58)
[2018-08-16] MEDS: DULoxetine 30 MG CAPDR PO SCH (21:00)
--- NOTE | 2018-08-16 21:42 | NUR ---
AFTER PAIN MEDIC GIVEN KLPT GETTING SLEEP NOT DISTRESS NOTED
[2018-08-17] VITALS (9 sets, daily range): BP systolic 91–149; BP diastolic 59–88
[2018-08-17] MEDS: HYDROcodone/APAP 7.5/325 MG 1 TAB PO PRN ×2 (00:24→22:37)
--- NOTE | 2018-08-17 00:48 | NUR ---
AFTER PAIN MEDIC GIVEN PT SLEEPING QUIET ST ON TEEMETRY ,NOT DISTRESS NOTED
--- NOTE | 2018-08-17 02:17 | NUR ---
REPOSITIONED ON TELEMETRY ST NOT DISTRESS NOTED AT THIS TIME
[2018-08-17] MEDS: HYDROmorphone PFS 2 MG/ML SYR IVP PRN ×3 (03:17→20:04)
--- NOTE | 2018-08-17 05:00 | NUR ---
PT REMAIN SATBLE SLEEPING WELL AT THIS TIME ON TELEMETRY SR NOT DISTRESS NOTED AT TH;IS TIME.
--- NOTE | 2018-08-17 06:14 | NUR ---
PT REPOSITIONED ON TELEMETRY ST SLEEPING AT THIS TIME NOT DISTRESS NOTED
[2018-08-17] MEDS: ALBUTEROL SULFATE/IPRATROPIU 3 ML SOL IH SCH ×3 (07:00→19:00)
--- NOTE | 2018-08-17 07:02 | NUR ---
ASSUMED CONTINUITY OF CARE. NO SIGNS AND SYMPTOMS OF ACUTE DISTRESS NOTED. INITIAL ASSESSMENT DONE. KEEP COMFORTABLE ON BED. EXPLAINED DIAGNOSIS, PLAN OF CARE, PAIN MANAGEMENT TEACHING, CONTACT ISOLATION PRECAUTION, USE OF CALL LIGHT/BED/TV/BATHROOM. VERBALIZED UNDERSTANDING. FALL PRECAUTION APPLIED. CALL LIGHT WITHIN REACH.
[2018-08-17 07:41] LABS: BASOPHILS # (AUTO) 0.1 K/uL (0.00-0.22); BASOPHILS % (AUTO) 0.6 % (0.0-2.0); EOSINOPHILS # (AUTO) 0.1 K/uL (0-0.4); EOSINOPHILS % (AUTO) 0.5 % (0.0-4.0); HEMATOCRIT 27.1 % (36-48); HEMOGLOBIN 8.2 g/dL (12.0-16.0); LYMPHOCYTES # (AUTO) 2.2 K/uL (2.5-16.5); LYMPHOCYTES % (AUTO) 21.3 % (20.5-51.1); MEAN CORPUSCULAR HEMOGLOBIN 25 pg (27-31); MEAN CORPUSCULAR HGB CONC 30 g/dL (33-37); MEAN CORPUSCULAR VOLUME 81.4 fL (80-94); MONOCYTES # (AUTO) 1.2 K/uL (0.8-1.0); MONOCYTES % (AUTO) 11.6 % (1.7-9.3); NEUTROPHILS # (AUTO) 6.8 K/uL (1.8-7.7); PLATELET COUNT (AUTO) 223 K/uL (140-450); RED BLOOD CELL COUNT(AUTO) 3.33 MIL/uL (4.20-5.40); RED CELL DISTRIBUTION WIDTH 24.7 % (11.6-13.7); WHITE BLOOD COUNT (AUTO) 10.3 K/uL (4.8-10.8)
[2018-08-17 07:58] LABS: ANION GAP 9.7 (8-16); CARBON DIOXIDE 26.8 mmol/L (21-32); CREATININE 2.5 mg/dL (0.6-1.3); MAGNESIUM 2.5 mg/dL (1.8-2.4); POTASSIUM 3.5 mmol/L (3.5-5.1)
--- NOTE | 2018-08-17 07:58 | NUR ---
RCV'D PT ON 2 L NC WITH BUBBLE HUMIDIFIER. SPO2 98% HR 83 NO SOB OR DISTRESS NOTED. PT REFUSED HHN TX. WILL CONTINUE TO MONITOR.
[2018-08-17] MEDS: FERROUS SULFATE 325 MG TABEC PO SCH ×2 (08:00→17:00)
--- NOTE | 2018-08-17 08:00 | NUR ---
Patient's Plan of Care was discussed and reviewed with CLIP AND HANGER ATTACHER: HAILY, CONTINUE WITH CURRENT POC.
[2018-08-17] MEDS: CARVEDILOL 3.125 MG TAB PO SCH ×2 (09:00→21:18)
[2018-08-17] MEDS: GABAPENTIN 300 MG CAP PO SCH (09:00)
[2018-08-17] MEDS: VIT-B COMP/VIT-C/FOLIC ACID 1 TAB PO SCH (09:00)
[2018-08-17] MEDS: LACTOBACILLUS RHAMNOSUS GG 1 EACH CAP PO SCH (09:00)
[2018-08-17] MEDS: ASCORBIC ACID 500 MG TAB PO SCH (09:00)
[2018-08-17] MEDS: LISINOPRIL 5 MG TAB PO SCH (09:00)
[2018-08-17] MEDS: amLODIPine 5 MG TAB PO SCH (09:00)
[2018-08-17] MEDS ORDERED: HYDROmorphone PFS 2 MG/ML SYR IVP PRN (09:05)
[2018-08-17] MEDS: DOCUSATE SODIUM 100 MG GELCAP PO SCH ×2 (09:06→21:17)
[2018-08-17] MEDS: FAMOTIDINE 20 MG TAB PO SCH (09:07)
[2018-08-17] MEDS: levETIRAcetam 500 MG TAB PO SCH ×2 (09:08→21:20)
[2018-08-17] MEDS: POLYETHYLENE GLYCOL 17 GM/PKT PO SCH (09:09)
[2018-08-17] MEDS: CHLORHEXADINE GLUC 2% CLOTH TP SCH (09:13)
--- NOTE | 2018-08-17 09:48 | NUR ---
GOT CALL FROM HAILY DODGE THAT PT IS REQUESTING A BREATHING TREATMENT. CHECKED PT BUT PT VERBALIZED THAT SHE IS HAVING A LOT OF PAIN BUT BREATHING FINE. HR 102 SPO2 97% BILATERAL CLEAR BREATH SOUNDS. NO SOB OR DISTRESS NOTED. RN AT BEDSIDE. HHN NOT NEEDED AT THIS TIME. WILL CONTINUE TO MONITOR.
[2018-08-17] MEDS: MUPIROCIN CA NASAL 2% 1GM TUBE NS SCH (10:01)
[2018-08-17] MEDS: BENZOCAINE/MENTHOL 1 LOZ MM PRN ×2 (10:01→20:03)
--- NOTE | 2018-08-17 12:00 | NUR ---
VITALS SIGNS STABLE. NO C/O PAIN. WILL MONITOR.
--- NOTE | 2018-08-17 13:14 | NUR ---
DR. RICHMOND CAME AND SPOKE TO PT. AT BEDSIDE REGARDING PT. PAIN MEDICINE FREQUENCY CHANGE.
--- NOTE | 2018-08-17 13:46 | NUR ---
PT IS HAVING DIALYSIS. HHN TX NOT GIVEN. NO SOB OR DISTRESS NOTED. WILL CONTINUE TO MONITOR
--- NOTE | 2018-08-17 15:05 | NUR ---
DR. RICHMOND CAME AND SPOKE TO PT. AT BEDSIDE.
--- NOTE | 2018-08-17 15:35 | NUR ---
2 VIALS OF HEPARIN 5000 EACH VIAL GIVEN BY AILYN OREILLY -HD NURSE FOR POST OP HD CARE. DR. RICHMOND MADE AWARE.
[2018-08-17] MEDS: MEROPENEM 500 MG in NACL 0.9% 50 ML IV SCH (15:58)
--- NOTE | 2018-08-17 17:15 | NUR ---
DR. BRITTON REVIEWED PT. CHART AND SEEN PT..
--- NOTE | 2018-08-17 19:22 | NUR ---
BEDSIDE REPORT GIVEN TO KEIRA DIAZ. IN STABLE CONDITION.
--- NOTE | 2018-08-17 19:22 | NUR ---
REPORT RECEIVED AT BEDSIDE FROM HAILY VILLALBA DAYSMIFT NURSE, PT IN STABLE CONDITION.
--- NOTE | 2018-08-17 20:50 | NUR ---
2039 PT STOPPED HHNTX SAID IT MAKES HER COUGH. PT HAS CLEAR BREATH SOUNDS NO SOB NOTED, PLACED PT BACK ON 2LNC
--- NOTE | 2018-08-17 21:00 | NUR ---
PT IN BED WITH ALL FALLS PRECAUTIONS IN PLACE. V/S FOLLOWS T 98.7 P 107 R 18 B/P 126/77 02 99% WITH 2L VIA N/C. PT LUNG SOUNDS CLEAR, NO S/S OF SOB NOTED. PT DECLINED ALL MEDS DUE AT 2100 EXCEPT COLACE. ( COREG, CYMBALTA, KEPPRA, REMERON-- ALL DECLINED). PT RECEIVED REQUESTED DILAUDID FOR C/O 8/10 PAIN IN HER LEGS. PT HAD MEDIUM BM AMD REQUESTED TO BE CHANGED AND REPOSITIONED.
[2018-08-17] MEDS: DULoxetine 30 MG CAPDR PO SCH (21:19)
[2018-08-17] MEDS: MIRTAZAPINE 15 MG TAB PO SCH (21:21)
--- NOTE | 2018-08-17 21:30 | NUR ---
PT WAS TURNED , CHANGED AND REPOSITIONED BY HAND TILE MAKER'S. BED LOW AND CALL SERRANO IN REACH. DR. ARAMBULA AT BED SIDE EVALUATING PT. POSITIVE EFFECT OF DILAUDID NOTED.
--- NOTE | 2018-08-17 22:56 | NUR ---
PT C/O 5/10 PAIN IN HER BACK, SHE REQUESTED AND WAS GIVEN NORCO PRN FOR MODERATE PAIN.
[2018-08-18] VITALS: BP 151/69
--- NOTE | 2018-08-18 | NUR ---
PT IN BED REQUEST TO CHANGE POSITIONS, PT TURNED TO THE RIGHT SIDE TOLERATED. V/S FOLLOWS T 98.3 P 104 R 18 B/P 121/83 02 100 WITH 2L VIA N/C.
[2018-08-18] MEDS: BENZOCAINE/MENTHOL 1 LOZ MM PRN ×3 (00:37→08:27)
[2018-08-18] MEDS: HYDROmorphone PFS 2 MG/ML SYR IVP PRN ×3 (00:39→08:55)
--- NOTE | 2018-08-18 00:45 | NUR ---
PT REQUEST DILAUDID PRN SEVERE PAIN IN BACK. REQUEST GRANTED.
[2018-08-18] MEDS: HYDROcodone/APAP 7.5/325 MG 1 TAB PO PRN ×2 (03:47→15:18)
[2018-08-18 04:00] VITALS: BP 118/78
--- NOTE | 2018-08-18 04:00 | NUR ---
PT IN BED, CHARGE NURSE PUTTING IN NEW IV SITE DUE TO OLD SITE STARTING TO LEAK. NEW IV SITE ON R F/A WITH 22G. IV SITE FLUSHED PATENT. PT C/O MODERATE PAIN 5/10 GENERALIZED PAIN, GIVEN 1 TAB OF NORCO PO/PRN . V/S FOLLOWS T 98.8 P 103 R 18 B/P 118/78 02 95 WITH 4 LITERS VIA N/C.
[2018-08-18] MEDS: ALBUTEROL SULFATE/IPRATROPIU 3 ML SOL IH SCH ×2 (06:39→13:15)
--- NOTE | 2018-08-18 06:39 | NUR ---
WENT TO GIVEN PT HER BREATHING TX AND PT STATED SHE DID NOT WANT TX, NO SIGNS OF DISTRESS WERE NOTED AT THIS TIME PT ON 2LNC
--- NOTE | 2018-08-18 07:25 | NUR ---
RECEIVED REPORT FROM STONE UNLOADER RN. PT IS AAOX4, NO S/S OF ACUTE DISTRESS AT THIS TIME. SKIN INTACT. LUNGS SOUNDS DIMINISHED. PT IS PARAPLEGIC, BLE 2+ PITTING EDEMA. IV SITE NOTED TO LEFT FA, 20G, SL, PATENT AND ASYMPTOMATIC. RIGHT IJ YEMI CATH IN PLACE FOR HD. F/C IN PLACE, DRAINING FREDDIE URINE. BED IN LOWEST POSITION, CALL LIGHT WITHIN REACH, WILL CONTINUE TO MONITOR.
--- NOTE | 2018-08-18 07:27 | NUR ---
GAVE REPORT TO DAYSHIFT NURSE AT BEDSIDE FOR CONTINUITY OF CARE, PT IN STABLE CONDITION.
[2018-08-18 08:00] VITALS: BP 132/68
[2018-08-18] MEDS: FERROUS SULFATE 325 MG TABEC PO SCH (08:00)
[2018-08-18] MEDS: levETIRAcetam 500 MG TAB PO SCH (08:28)
[2018-08-18] MEDS: DOCUSATE SODIUM 100 MG GELCAP PO SCH (08:30)
[2018-08-18] MEDS: POLYETHYLENE GLYCOL 17 GM/PKT PO SCH (08:30)
[2018-08-18] MEDS: FAMOTIDINE 20 MG TAB PO SCH (08:31)
[2018-08-18] MEDS: CARVEDILOL 3.125 MG TAB PO SCH (08:33)
[2018-08-18] MEDS: MUPIROCIN CA NASAL 2% 1GM TUBE NS SCH (08:35)
[2018-08-18] MEDS: LACTOBACILLUS RHAMNOSUS GG 1 EACH CAP PO SCH (08:44)
[2018-08-18] MEDS: LISINOPRIL 5 MG TAB PO SCH (08:45)
[2018-08-18] MEDS: GABAPENTIN 300 MG CAP PO SCH (08:45)
[2018-08-18] MEDS: amLODIPine 5 MG TAB PO SCH (08:45)
[2018-08-18] MEDS: VIT-B COMP/VIT-C/FOLIC ACID 1 TAB PO SCH (08:45)
[2018-08-18] MEDS: ASCORBIC ACID 500 MG TAB PO SCH (08:45)
[2018-08-18] MEDS: CHLORHEXADINE GLUC 2% CLOTH TP SCH (08:45)
[2018-08-18] MEDS ORDERED: APIXABAN 2.5 MG TAB PO SCH (09:00)
[2018-08-18 09:01] LABS: BASOPHILS % (AUTO) 0.4 % (0.0-2.0); EOSINOPHILS # (AUTO) 0.1 K/uL (0-0.4); EOSINOPHILS % (AUTO) 0.7 % (0.0-4.0); HEMATOCRIT 26.1 % (36-48); LYMPHOCYTES % (AUTO) 21.9 % (20.5-51.1); MEAN CORPUSCULAR HEMOGLOBIN 25 pg (27-31); MEAN CORPUSCULAR HGB CONC 31 g/dL (33-37); MONOCYTES # (AUTO) 1.1 K/uL (0.8-1.0); MONOCYTES % (AUTO) 12.3 % (1.7-9.3); NEUTROPHILS # (AUTO) 5.9 K/uL (1.8-7.7); NEUTROPHILS % (AUTO) 64.7 % (42.2-75.2); PLATELET COUNT (AUTO) 269 K/uL (140-450); RED BLOOD CELL COUNT(AUTO) 3.26 MIL/uL (4.20-5.40); RED CELL DISTRIBUTION WIDTH 23.5 % (11.6-13.7); WHITE BLOOD COUNT (AUTO) 9.2 K/uL (4.8-10.8)
[2018-08-18] MEDS ORDERED: BENZOCAINE 20% 57 GM CAN MC PRN (09:05)
[2018-08-18] MEDS ORDERED: BENZOCAINE/MENTHOL 1 LOZ MM PRN (09:05)
[2018-08-18] MEDS ORDERED: HYDROmorphone 2 MG TAB PO PRN ×2 (09:10→15:45)
[2018-08-18 09:25] LABS: CARBON DIOXIDE 23.4 mmol/L (21-32); CREATININE 2.3 mg/dL (0.6-1.3); POTASSIUM 3.4 mmol/L (3.5-5.1)
[2018-08-18 09:31] LABS: MAGNESIUM 2.3 mg/dL (1.8-2.4); PHOSPHORUS 4.2 mg/dL (2.5-4.9)
--- NOTE | 2018-08-18 10:20 | NUR ---
NO S/S OF ACUTE DISTRESS NOTED. LOWERED O2 TO 1L VIA NC.
[2018-08-18] MEDS: PROMETH/CODEINE 6.25-10MG/5ML 5 ML UDC PO PRN (11:08)
[2018-08-18] MEDS ORDERED: MERO500P9 IV (11:11)
[2018-08-18] MEDS ORDERED: APIX2.5 PO (11:11)
[2018-08-18] MEDS ORDERED: BENZSPR MC (11:11)
[2018-08-18] MEDS ORDERED: LACT10CA PO (11:11)
[2018-08-18] MEDS ORDERED: AMLO5TAB4 PO (11:11)
[2018-08-18 12:00] VITALS: BP 125/82
[2018-08-18] MEDS: MEROPENEM 500 MG in NACL 0.9% 50 ML IV SCH (12:34)
--- NOTE | 2018-08-18 12:38 | NUR ---
Vet Assistant Note: I faxed patient's medical information, including MD's order for iv antibiotic to [facility].
--- NOTE | 2018-08-18 12:57 | NUR ---
7078 SPOKE WITH NARCISA IN ADMISSIONS AT [facility] AND HE STATED THAT PT CAN GO TO ROOM 113C AND REQUESTS PERSONNEL GENERALIST MANAGER AFTER 1530. CALLED [employer] [phone] AND SCHEDULED GURNEY TRANSPORT WITH O2 FOR 1530 PERSONNEL GENERALIST MANAGER. REF#[id number] AND SOMEONE WILL CALL BACK TO CONFIRM TIME AND TRANSPORT COMPANY.
--- NOTE | 2018-08-18 13:15 | NUR ---
PT ON BREATHING TX THEN AFTER 3MINS PT STOPPED TX STATED TX MAKING HER THROAT TICKLE NO SIGNS OF DISTRESS NOTED AT THIS TIME
[2018-08-18] MEDS ORDERED: HYDR2TAB6 PO (14:00)
--- NOTE | 2018-08-18 14:52 | NUR ---
CALLED [facility] SEPULVEDA FOR REPORT, REPORT GIVEN TO ANTHONY. GOING TO RM 113C. ESTIMATED ASSOCIATE PROFESSOR OF PHYSICS TIME 1530.
--- NOTE | 2018-08-18 15:20 | NUR ---
PT DISCHARGED PER MD ORDER. DISCHARGE INSTRUCTIONS AND MED TEACHING PROVIDED. RX GIVEN. PT VERBALIZED UNDERSTANDING. IV KEPT FOR CONTINUE IV ABX. PT SIGNED ALL HER DISCHARGE PAPER WORK.
[2018-08-18 15:25] VITALS: BP 117/83
[2018-08-18] MEDS ORDERED: VANCOMYCIN PER PHARMACY MC PRN (15:45)
--- NOTE | 2018-08-18 15:45 | NUR ---
PT LEFT WITH TRANSPORT. PT IS IN STABLE CONDITION. O2 2L VIA NC. NO S/S OF ACUTE DISTRESS.
--- NOTE | 2018-08-18 15:47 | NUR ---
NOTIFIED DR RICHMOND ABOUT VANCO ORDER ENTERED BY DR DOUGLAS. DR RICHMOND STATED HE WILL NOTIFY DR GILES, PT'S PCP.
[2018-08-18] MEDS ORDERED: RIVAROXABAN 10 MG TAB PO SCH (21:00)
== END 2018-08-18 15:50 | DRG 871 ==
LOC: MED 12:12 → MTU 14:34
PROVIDERS: ADMIT General Practice; ATTEND General Practice
PROC: 5A1D70Z Performance of Urinary Filtration, Intermittent, Less than 6 Hours Per Day (ICD-10-PCS; principal; 2018-08-12)
PROC: 5A1D70Z Performance of Urinary Filtration, Intermittent, Less than 6 Hours Per Day (ICD-10-PCS; 2018-08-13)
PROC: 5A1D70Z Performance of Urinary Filtration, Intermittent, Less than 6 Hours Per Day (ICD-10-PCS; 2018-08-14)
PROC: 5A1D70Z Performance of Urinary Filtration, Intermittent, Less than 6 Hours Per Day (ICD-10-PCS; 2018-08-15)
PROC: 5A1D70Z Performance of Urinary Filtration, Intermittent, Less than 6 Hours Per Day (ICD-10-PCS; 2018-08-17)
DX: A41.9 Sepsis, unspecified organism (principal); N18.6 End stage renal disease; E43 Unspecified severe protein-calorie malnutrition; J69.0 Pneumonitis due to inhalation of food and vomit; N17.0 Acute kidney failure with tubular necrosis; E87.1 Hypo-osmolality and hyponatremia; Z68.1 Body mass index [BMI] 19.9 or less, adult; G82.20 Paraplegia, unspecified; N39.0 Urinary tract infection, site not specified; I42.0 Dilated cardiomyopathy; R65.20 Severe sepsis without septic shock; E87.5 Hyperkalemia; F32.9 Major depressive disorder, single episode, unspecified; K21.9 Gastro-esophageal reflux disease without esophagitis; G40.909 Epilepsy, unspecified, not intractable, without status epilepticus; F41.9 Anxiety disorder, unspecified; G89.4 Chronic pain syndrome; F11.90 Opioid use, unspecified, uncomplicated; Z16.12 Extended spectrum beta lactamase (ESBL) resistance; Z87.891 Personal history of nicotine dependence; Z88.5 Allergy status to narcotic agent; Z88.8 Allergy status to other drugs, medicaments and biological substances; Z99.2 Dependence on renal dialysis; Z86.718 Personal history of other venous thrombosis and embolism; K59.00 Constipation, unspecified; D63.8 Anemia in other chronic diseases classified elsewhere; E83.42 Hypomagnesemia; J40 Bronchitis, not specified as acute or chronic; Z90.49 Acquired absence of other specified parts of digestive tract
CPT/HCPCS: 36415; 36600; 71045; 71250; 76604; 80048; 80053; 80202; 80305; 81001; 81025; 82140; 82803; 82948; 83036; 83540; 83605; 83690; 83735; 83880; 84100; 84436; 84443; 84479; 84484; 85025; 85610; 85730; 86870; 86886; 86900; 86901; 87040; 87070; 87081; 87086; 87186; 87205; 90935; 93005; 93970; 94640; 99285; J0696; J0713; J1170; J1580; J1644; J1815; J1956; J2001; J2185; J2405; J2916; J3370; J3475; J3480; J7030; J7060; J7620; Q0092

== ENCOUNTER 2018-09-16 10:54 | Inpatient (IN) | payer OTHER, MEDICAID ==
[~2018-09-16] VITALS: Ht 154.9 cm; Wt 41.7 kg
[~2018-09-16 10:54] MED LIST changes: +AMLO5TAB4 PO; +APIX2.5 PO; -ASCO1CAP75 PO; +BENZSPR MC; +HYDR2TAB6 PO; -HYDR4TAB4 PO; +LACT10CA PO; +MERO500P9 IV; -OXYC30TE PO; -PIPE1PDS39 IV; -RIVA20TA PO; -SENN-89 PO
[2018-09-16 10:56] VITALS: BP 130/88
--- NOTE | 2018-09-16 10:56 | NUR ---
PT BIBA BLS TO BED 8
--- NOTE | 2018-09-16 11:22 | NUR ---
43YO F BIBA W/C/O BACK PAIN & COUGH X3DAYS. PT STATES COUGHING NON STOP X 2.5 HRS THIS MORNING. PT WITH DIALYSIS ON FRI/FRI. LAST FRIDAY FOR DIALYSIS. HD SITE: RIGHT UPPER CHEST.RETAINED GAMEZ'S CATH FROM FACILITY AROUND 1 MONTH : URINE ORANGE 30 ML IN BAG. SKIN OPEN TO COCCYX.FEET 7 & RIGHT LOWER LEG : PITTING EDEMA. HX: PNEUMONIA, GERD, NEUROMUSCULAR BLADDER, ANXITY, EPILEPSY A5OABMR, ASTHMA, PARAPLEGIA, DVT, DYSPHGIA, OK, BACK, HIP SURGERY. PATIENT STATES PAIN OF 6/10 AT THIS TIME; VSS; PATIENT POSITIONED FOR COMFORT; HOB ELEVATED; BEDRAILS UP X2; BED DOWN. ER MD MADE AWARE OF PT STATUS.
[2018-09-16] MEDS ORDERED: IPRATROPIUM 0.02% 0.5 MG/2.5 ML NEBU INH ONE (11:25)
[2018-09-16] MEDS ORDERED: ALBUTEROL 0.083% 2.5 MG/3 ML NEBU INH ONE (11:25)
[2018-09-16] MEDS ORDERED: PIPERACILLIN/TAZOBACTAM 3.375 GM in DEXTROSE 5% 50 ML IV ONE (11:25)
[2018-09-16] MEDS ORDERED: VANCOMYCIN 1,000 MG in DEXTROSE 5% 250 ML IV ONE (11:25)
--- NOTE | 2018-09-16 11:29 | NUR ---
CALLED RT FOR TREATMENT
--- NOTE | 2018-09-16 11:34 | NUR ---
RT AT BEDSIDE FOR TREATMENT
[2018-09-16] MEDS ORDERED: [UNRECOGNIZED DRUG - CODE] PO (11:43)
[2018-09-16] MEDS ORDERED: VANCOMYCIN 1,000 MG VIAL ONE (11:45)
[2018-09-16] MEDS ORDERED: LORA-476 PO (11:45)
[2018-09-16] MEDS ORDERED: PIPERACILLIN/TAZOBACTAM 3.375 GM VIAL IV ONE (11:45)
[2018-09-16] MEDS ORDERED: HYDROmorphone PFS 2 MG/ML SYR IVP ONE (12:15)
--- NOTE | 2018-09-16 12:32 | NUR ---
LAB AT BEDSIDE.
[2018-09-16 13:04] LABS: BASOPHILS # (AUTO) 0.1 K/uL (0.00-0.22); BASOPHILS % (AUTO) 0.9 % (0.0-2.0); HEMATOCRIT 32.6 % (36-48); HEMOGLOBIN 9.9 g/dL (12.0-16.0); LYMPHOCYTES # (AUTO) 1.2 K/uL (2.5-16.5); LYMPHOCYTES % (AUTO) 11.4 % (20.5-51.1); MEAN CORPUSCULAR HEMOGLOBIN 24 pg (27-31); MEAN CORPUSCULAR HGB CONC 30 g/dL (33-37); MEAN CORPUSCULAR VOLUME 78.4 fL (80-94); MONOCYTES # (AUTO) 0.4 K/uL (0.8-1.0); MONOCYTES % (AUTO) 3.5 % (1.7-9.3); NEUTROPHILS # (AUTO) 8.7 K/uL (1.8-7.7); NEUTROPHILS % (AUTO) 84.2 % (42.2-75.2); PLATELET COUNT (AUTO) 377 K/uL (140-450); RED BLOOD CELL COUNT(AUTO) 4.16 MIL/uL (4.20-5.40); RED CELL DISTRIBUTION WIDTH 20.9 % (11.6-13.7); WHITE BLOOD COUNT (AUTO) 10.3 K/uL (4.8-10.8)
--- NOTE | 2018-09-16 13:22 | NUR ---
CALLED DIETARY FOR FOOD TRAY
[2018-09-16 13:24] LABS: ANION GAP 18.4 (8-16); CARBON DIOXIDE 22.6 mmol/L (21-32); CREATININE 2.9 mg/dL (0.6-1.3)
[2018-09-16 13:30] LABS: ALBUMIN 1.9 g/dL (3.4-5.0); TOTAL BILIRUBIN 0.4 mg/dL (0.0-1.0)
[2018-09-16 14:27] LABS: APPEARANCE,URINE CLOUDY (CLEAR); COLOR,URINE YELLOW (YELLOW); PH,URINE 6.5 (5.0-9.0)
[2018-09-16 14:28] LABS: BILIRUBIN,URINE NEGATIVE (NEGATIVE); BLOOD, URINE 3+ (NEGATIVE); LEUKOCYTE ESTERASE ,URINE 1+ (NEGATIVE); NITRITE, URINE NEGATIVE (NEGATIVE); UGLUCOSE NEGATIVE (NEGATIVE)
[2018-09-16 14:37] LABS: RBC,URINE TOO NUMEROUS TO COUN /HPF (0-5); WBC,URINE 80-100 /HPF (0-5); YEAST,URINE Few /HPF (None Seen)
--- NOTE | 2018-09-16 15:37 | NUR ---
1532 PT TAKEN TO FLOOR BY ECHO SAUCEDO AND EMT HEMAL
--- NOTE | 2018-09-16 15:45 | NUR ---
PATIENT WAS TRANSFERRED FROM ER. REPORT WAS GIVEN AT BEDSIDE. VS WAS TAKEN, MRSA WAS SWABBED. BOILERMAKER ASSEMBLY AND ERECTION WAS PLACED. PATIENT AWAKE, ALERT. RESPIRATION EVEN, TACHYPNEIC ON 4L NC. SKIN DRY AND WARM. RIGHT IJ CENTRAL CATH PATENT AND INTACT. GAMEZ IS DRAINING DARK YELLOW URINE. PATIENT WAS ORIENTED TO ROOM ,STAFF, AND CALL LIGHT. PLAN OF CARE WAS DISCUSSED WITH PATIENT. BED AT LOW POSITION, SIDE RAILS UP. CALL LIGHT WITHIN REACH
--- NOTE | 2018-09-16 15:45 | NUR ---
Patient will be admitted to care of DR BURRELL. Admited to TELE. Will go to room 117A. Belongings list completed. Report to KANG DODGE.
[2018-09-16 16:00] VITALS: BP 130/86
[2018-09-16] MEDS ORDERED: ZOLPIDEM 5 MG TAB PO PRN (16:00)
[2018-09-16] MEDS ORDERED: ACETAMINOPHEN 325 MG TAB PO PRN (16:00)
[2018-09-16] MEDS ORDERED: LORazepam 2 MG/ML VIAL IM/IVP PRN (16:00)
[2018-09-16] MEDS ORDERED: HYDROmorphone PFS 2 MG/ML SYR IVP PRN (16:00)
[2018-09-16] MEDS ORDERED: DOCUSATE SODIUM 100 MG GELCAP PO PRN (16:00)
[2018-09-16] MEDS ORDERED: ONDANSETRON 4 MG/2 ML VIAL IM/IVP PRN (16:00)
[2018-09-16] MEDS ORDERED: VANCOMYCIN PER PHARMACY MC PRN (16:05)
--- NOTE | 2018-09-16 16:30 | NUR ---
PATIENT COMPLAINED OF BACK PAIN 8/10, NON RADIATING. MD WAS MADE AWARE. WILL MEDICATE PER ORDER
[2018-09-16] MEDS: HYDROmorphone 2 MG TAB PO PRN ×2 (16:53→21:05)
[2018-09-16] MEDS: NACL 0.9% 1,000 ML IV SCH (16:55)
[2018-09-16 17:02] LABS: BARBITURATE, URINE NEG. ng/ml (NEG <=200); BENZODIAZEPINE, URINE NEG. ng/mL (NEG <=200); CANNABINOID, URINE NEG. ng/mL (NEG <=50); COCAINE, URINE NEG. ng/mL (NEG <=300); OPIATE, URINE POS. ng/mL (NEG <=2000); PHENCYCLIDINE SCREEN,URINE NEG. ng/mL (NEG <=25)
[2018-09-16 17:14] LABS: MAGNESIUM 1.9 mg/dL (1.8-2.4); PHOSPHORUS 8.3 mg/dL (2.5-4.9); PROTHROMBIN TIME 11.9 secs (10.8-13.4); THYROID STIMULATING HORMONE 2.62 uIU/mL (0.34-3.74)
--- NOTE | 2018-09-16 18:46 | NUR ---
PATIENT AWAKE, ALERT. RESPIRATION EVEN, UNLABOR ON 4L NC. CENTRAL CATH PATENT AND INTACT. NO DISTRESS NOTED AT THIS TIME
[2018-09-16] MEDS ORDERED: BENZOCAINE 20% 57 GM CAN MC PRN (18:55)
[2018-09-16] MEDS ORDERED: MAGNESIUM CITRATE 300 ML BTL PO PRN (18:55)
[2018-09-16] MEDS ORDERED: LORazepam 1 MG TAB PO SCH (18:55)
[2018-09-16] MEDS ORDERED: BISACODYL 10 MG SUPP RC PRN (18:55)
[2018-09-16] MEDS ORDERED: SODIUM PHOSPHATE PEDIATRIC 67.5 ML ENEM RC SCH (18:55)
--- NOTE | 2018-09-16 19:24 | NUR ---
PT IS ON 4L NC, SAT 1OO%, DECREASED TO 3L AND SAT IS STEEL 100%. PT DOES NOT WANT ME TO GO LESS BECAUSE SHE TOLD ME THAT CAN NOT BREATH, TOLD HER THAT THE DR ORDER IS TO KEEP 88-92%. PT DOES NOT WANT ME TO GET THE IS, DOES NOT LIKE TO USE IT, MAKING HER SOB. PT TOLD ME COUPLE OF TIME WHAT SHE WANTS IS ATIVAN AND PAIN MEDS. REFUSED [facility] [place] PRN AND TOLD HER TO CALL ME IF SHE NEEDED.
--- NOTE | 2018-09-16 19:28 | NUR ---
ENDORSEMENT GIVEN TO THE FORMING FIXER NURSE. PATIENT IS STABLE AT THIS TIME
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
[2018-09-16 20:00] VITALS: BP 122/86
[2018-09-16] MEDS ORDERED: MELATONIN 6 MG PO SCH (21:00)
[2018-09-16] MEDS ORDERED: traZODone 50 MG TAB PO SCH (21:00)
[2018-09-16] MEDS ORDERED: DOCUSATE SODIUM 250 MG PO SCH (21:00)
[2018-09-16] MEDS: FERROUS SULFATE 325 MG TABEC PO SCH (21:00)
[2018-09-16] MEDS ORDERED: APIXABAN 2.5 MG TAB PO SCH (21:00)
[2018-09-16] MEDS ORDERED: NON-FORMULARY ITEM (Saccharomyces Boulardii* (Florastor*) 250 MG) PO SCH (21:00)
[2018-09-16] MEDS: ASCORBIC ACID 500 MG TAB PO SCH (21:00)
[2018-09-16] MEDS: PIPER/TAZO 2.25GM/D5W PREMIX 50 ML IV SCH (21:11)
[2018-09-16] MEDS: DULoxetine 30 MG CAPDR PO SCH (21:57)
[2018-09-16] MEDS: SENNA 8.6 MG TAB PO SCH (21:59)
--- NOTE | 2018-09-16 22:00 | NUR ---
AFTER PAIN MEDIC GIVEN PT REMAIN STABLE NOT SIGNS OF PAIN RESTING ON BED ON TELEMETRY ST, PT REPOSITIONED Q2H
[2018-09-17] VITALS: BP 112/82
[2018-09-17] MEDS: HYDROmorphone 2 MG TAB PO PRN ×6 (01:13→22:30)
--- NOTE | 2018-09-17 01:37 | NUR ---
PT SLEEPING NOT SIGNS OF PAIN NOTED ON TELMETRY SR IV ON RT IJ INFUSING WELL
[2018-09-17 04:00] VITALS: BP 109/66
--- NOTE | 2018-09-17 04:00 | NUR ---
SPONGE BTH GIVEN LINEN CHANGED PT ON TELEMETRY SR NOT DISTRESS NOTED AT THIS TIME PT WILL BE ON WOOUND BED
[2018-09-17] MEDS: PIPER/TAZO 2.25GM/D5W PREMIX 50 ML IV SCH ×3 (05:01→21:18)
--- NOTE | 2018-09-17 06:20 | NUR ---
AFTER PAIN MEDIC GIVEN PT REMAIN SLEEPING NOT DISTRESS NOTED
--- NOTE | 2018-09-17 06:39 | NUR ---
AWAKE AND ALERT RESPONSIVE TO SPECIAL CLASS WELDER VERBAL PATIENT PRESENTING WITH EMESIS/NAUSEA STATUS AT THIS TIME SEAN/RN AWARE NO APPARENT SOB NOTED AT THIS TIME SPECIAL CLASS WELDER TO ATTEMPT HHN THERAPY AT A LATER TIME
--- NOTE | 2018-09-17 06:49 | NUR ---
PT HAD C/O NAUSEA.HER NURSE SEAN RN WAS BUSY W/PT IN ROOM 113.ZOFRAN 4MG IVP GIVEN.
[2018-09-17 07:21] LABS: BASOPHILS # (AUTO) 0.1 K/uL (0.00-0.22); BASOPHILS % (AUTO) 0.8 % (0.0-2.0); EOSINOPHILS % (AUTO) 0.4 % (0.0-4.0); HEMOGLOBIN 9.1 g/dL (12.0-16.0); LYMPHOCYTES # (AUTO) 1.8 K/uL (2.5-16.5); LYMPHOCYTES % (AUTO) 17.2 % (20.5-51.1); MEAN CORPUSCULAR HEMOGLOBIN 24 pg (27-31); MEAN CORPUSCULAR HGB CONC 31 g/dL (33-37); MEAN CORPUSCULAR VOLUME 78.1 fL (80-94); MONOCYTES # (AUTO) 0.5 K/uL (0.8-1.0); MONOCYTES % (AUTO) 5.4 % (1.7-9.3); NEUTROPHILS # (AUTO) 7.8 K/uL (1.8-7.7); NEUTROPHILS % (AUTO) 76.2 % (42.2-75.2); PLATELET COUNT (AUTO) 384 K/uL (140-450); RED BLOOD CELL COUNT(AUTO) 3.71 MIL/uL (4.20-5.40); RED CELL DISTRIBUTION WIDTH 20.4 % (11.6-13.7); WHITE BLOOD COUNT (AUTO) 10.2 K/uL (4.8-10.8)
[2018-09-17 07:48] LABS: ANION GAP 18.2 (8-16); CARBON DIOXIDE 20.6 mmol/L (21-32); CREATININE 2.9 mg/dL (0.6-1.3); POTASSIUM 4.8 mmol/L (3.5-5.1)
--- NOTE | 2018-09-17 07:48 | NUR ---
PER REQUEST OF KANG/RN HOLD HHN THERAPY DUE TO INCREASED IN HR AT 124
--- NOTE | 2018-09-17 07:50 | NUR ---
PATIENT WAS AWAKE, ALERT. RESPIRATION EVEN, UNLABOR ON 4L NC. SKIN DRY AND WARM. IV PATENT AND INTACT. GAMEZ DRAINING DARK YELLOW URINE. DENIED PAIN. COMPLAINED OF NAUSEA, WILL MEDICATE PER ORDER. PLAN OF CARE WAS DISCUSSED WITH PATIENT. BED AT LOW POSITION, SIDE RAILS UP. CALL LIGHT WITHIN REACH
[2018-09-17 07:54] LABS: CHOL/HDL RATIO 5.3 (1-4.5)
--- NOTE | 2018-09-17 07:58 | NUR ---
LOC ASLEEP EASILY AWAKENS PATIENT C/O OF SOB AND NASAL DRYNESS WITH SUPPLEMENTAL OXYGEN USE HHN THERAPY GIVEN ORDERED WHILE MONITORING HR THROUGHOUT THERAPY CURRENTLY AY 124 TOLERATED THERAPY WELL WITHOUT INCIDENT WITH DESCENDING HR AT 122 SATURATION 96% ON 4 LPM VIA NC POST THERAPY TITRATED FO2 TO 3 LPM PROPERTY WORKER TO MONITOR ALSO ADDED HUMIDIFIER KANG/RN AWARE
[2018-09-17 08:00] VITALS: BP 121/86
[2018-09-17] MEDS ORDERED: OXYBUTYNIN 5 MG TAB PO SCH (08:00)
--- NOTE | 2018-09-17 08:06 | NUR ---
PATIENT HAS BEEN SCREENED AND CATEGORIZED HIGH NUTRITION RISK. PATIENT WILL BE SEEN WITHIN 1-2 DAYS OF ADMISSION. 09/17/18-09/18/[address]
[2018-09-17] MEDS: ALBUTEROL SULFATE/IPRATROPIU 3 ML SOL IH SCH ×3 (08:09→19:40)
--- NOTE | 2018-09-17 08:11 | NUR ---
SATURATION 96% ON HUMIDIFIED SUPPLEMENTAL OXYGEN AT 3 LPM VIA NE KANG/RN NOTIFIED
[2018-09-17] MEDS ORDERED: ONDANSETRON 4 MG/2 ML VIAL IVP PRN (08:30)
--- NOTE | 2018-09-17 08:30 | NUR ---
PATIENT WAS AWAKE, ALERT. RESPIRATION EVEN, UNLABOR ON 3L NC. COMPLAINED OF BACK PAIN 8/10, WILL MEDICATE PER ORDER.
[2018-09-17] MEDS: LACTOBACILLUS RHAMNOSUS GG 1 EACH CAP PO SCH (08:37)
[2018-09-17] MEDS: SENNA 8.6 MG TAB PO SCH ×2 (08:38→21:24)
[2018-09-17] MEDS: CALCIUM ACETATE 667 MG TAB PO SCH ×3 (08:40→16:58)
[2018-09-17] MEDS: GABAPENTIN 300 MG CAP PO SCH (08:43)
[2018-09-17] MEDS: amLODIPine 5 MG TAB PO SCH (08:43)
[2018-09-17] MEDS: FERROUS SULFATE 325 MG TABEC PO SCH ×2 (08:43→21:00)
[2018-09-17] MEDS: APIXABAN 2.5 MG TAB PO SCH ×2 (08:43→21:23)
[2018-09-17] MEDS: ASCORBIC ACID 500 MG TAB PO SCH ×2 (08:44→21:00)
[2018-09-17] MEDS ORDERED: PEDI MULTIVIT PO SCH (09:00)
[2018-09-17] MEDS ORDERED: VIT D3 PO SCH (09:00)
[2018-09-17] MEDS ORDERED: VIT K PO SCH (09:00)
[2018-09-17] MEDS ORDERED: [UNRECOGNIZED DRUG - OTHER] PO SCH (09:00)
[2018-09-17] MEDS ORDERED: DOCUSATE SODIUM 250 MG GELCAP PO SCH (09:00)
[2018-09-17] MEDS: NACL 0.9% 1,000 ML IV SCH (09:34)
[2018-09-17] MEDS ORDERED: MULTIVITAMIN 5 ML ORASYR PO SCH (10:50)
--- NOTE | 2018-09-17 11:01 | NUR ---
DR. JUAREZ WAS MADE AWARE OF PATIENT'S CONSISTENT SINUS TACHYCARDIA.
--- NOTE | 2018-09-17 11:59 | NUR ---
PATIENT WAS RESTING COMFORTABLY. RESPIRATION EVEN, UNLABOR ON 3L NC. DENIED PAIN AT THIS TIME. NO DISTRESS NOTED. CALL LIGHT WITHIN REACH
[2018-09-17 12:00] VITALS: BP 135/84
[2018-09-17 12:22] LABS: FOLIC ACID 3.2 ng/mL (>3.0)
--- NOTE | 2018-09-17 12:30 | NUR ---
HEMODIALYSIS CONSENT WAS OBTAINED AT BEDSIDE. PATIENT VERBALIZED UNDERSTANDING. DIALYSIS NURSE WAS NOTIFIED.
--- NOTE | 2018-09-17 13:25 | NUR ---
SATURATION 97% ON SUPPLEMENTAL HUMIDIFIED OXYGEN AT 3 LPM VIA NC POST HHN THERAPY TITRATED FIO2 TO 2 LPM DIRECTOR OF BANDS TO NOTIFY TRADE ECONOMIST IN PROGRESS
[2018-09-17] MEDS ORDERED: VANCOMYCIN 500 MG in DEXTROSE 5% 100 ML IV SCH (13:30)
--- NOTE | 2018-09-17 13:50 | NUR ---
PATIENT WAS AWAKE, ALERT, SITTING IN BED COMFORTABLY. PATIENT COMPLAINED OF BACK PAIN 8/10. MED WAS GIVEN PER ORDER. NO DISTRESS NOTED. DIALYSIS WAS AT BEDSIDE
--- NOTE | 2018-09-17 14:12 | NUR ---
INFORMED JAIRO/RN (COVERING FOR KANG/RN) OF SUPPLEMENTAL OXYGEN TITRATION NOTED AT 9705
[2018-09-17] MEDS ORDERED: SODIUM PHOSPHATE PEDIATRIC 67.5 ML ENEM RC PRN (15:05)
[2018-09-17 16:00] VITALS: BP 141/81
--- NOTE | 2018-09-17 16:15 | NUR ---
PATIENT WAS SLEEPING COMFORTABLY. RESPIRATION EVEN, UNLABOR ON 2L NC. VS IS STABLE. DENIED PAIN AT THIS TIME. NO DISTRESS NOTED. DIALYSIS AT BEDSIDE. CALL LIGHT WITHIN REACH
--- NOTE | 2018-09-17 17:19 | NUR ---
PATIENT WAS SLEEPING COMFORTABLY. RESPIRATION EVEN, UNLABOR ON 2L. MEDS WERE GIVEN PER ORDER. NO DISTRESS NOTED AT THIS TIME.
--- NOTE | 2018-09-17 18:21 | NUR ---
PATIENT AWAKE, ALERT, EATING DINNER COMFORTABLY. RESPIRATION EVEN, UNLABOR ON ROOM AIR. NO DISTRESS NOTED. PATIENT COMPLAINED OF BACK PAIN 06/26. MED WAS GIVEN PER ORDER. CALL LIGHT WITHIN REACH
--- NOTE | 2018-09-17 19:26 | NUR ---
RECEIVED REPORT FROM DAY SHIFT NURSEKANG AT PT BEDSIDE. PT IN STABLE CONDITION. PT IS AAOX4. PT IS ON NC 3L. RESPIRATIONS ARE EVEN AND UNLABORED. PT HAS A RIGHT UPPER CHEST YEMI CATHETER. PT HAS A GAMEZ CATHETER PLACED. SKIN TEAR TO COCCYX NOTED. BED IS LOCKED, LOW POSITION WITH SIDE RAILS UP X2. BOARD UPDATED. CALL LIGHT IS WITHIN REACH. WILL CONTINUE TO MONITOR PT. Addendum: 09/18/18 at 0336 by Yael Lindsey RN PT REFUSING TO WEAR YELLOW SOCKS AND GOWN.
[2018-09-17 20:00] VITALS: BP 120/69
[2018-09-17] MEDS: DULoxetine 30 MG CAPDR PO SCH (21:00)
[2018-09-17] MEDS: traZODone 50 MG TAB PO SCH (21:00)
[2018-09-17] MEDS: POLYETHYLENE GLYCOL 17 GM/PKT PO SCH (21:24)
--- NOTE | 2018-09-17 21:24 | NUR ---
PT REFUSED FERROUS SULFATE, VITAMIN C, DESYREL AND CYMBALTA. ALL OTHER SCHEDULED MEDICATIONS ADMINISTERED ALL OTHER SCHEDULED MEDICATIONS. PT TOLERATED WELL. WILL CONTINUE TO MONITOR.
--- NOTE | 2018-09-17 22:30 | NUR ---
PT C/O PAIN. DILAUDID GIVEN. WILL CONTINUE TO MONITOR PT.
[2018-09-17] MEDS: LORazepam 1 MG TAB PO PRN (23:22)
--- NOTE | 2018-09-17 23:22 | NUR ---
PT C/O ANXIETY. ATIVAN GIVEN. PT TOLERATED WELL. ALL OTHER NEEDS ARE MET AT THIS TIME. WILL CONTINUE TO MONITOR.
[2018-09-18] VITALS: BP 129/78
--- NOTE | 2018-09-18 01:30 | NUR ---
PT ASLEEP IN BED. NO SIGNS OR SYMPTOMS OF DISTRESS. WILL CONTINUE TO MONITOR PT.
[2018-09-18] MEDS: HYDROmorphone 2 MG TAB PO PRN ×5 (03:24→20:49)
--- NOTE | 2018-09-18 03:24 | NUR ---
PT C/O PAIN. DILAUDID GIVEN. PT TOLERATED WELL. WILL CONTINUE TO MONITOR.
[2018-09-18 04:00] VITALS: BP 123/81
[2018-09-18] MEDS: PIPER/TAZO 2.25GM/D5W PREMIX 50 ML IV SCH ×3 (04:38→20:48)
--- NOTE | 2018-09-18 04:39 | NUR ---
ADMINISTERED SCHEDULED ANTIBIOTIC. PT IS SLEEPING COMFORTABLY IN BED. NO SIGNS OF PAIN OR DISTRESS. WILL CONTINUE TO MONITOR.
[2018-09-18] MEDS: ALBUTEROL SULFATE/IPRATROPIU 3 ML SOL IH SCH ×3 (06:52→18:00)
[2018-09-18 06:56] LABS: BASOPHILS # (AUTO) 0.1 K/uL (0.00-0.22); BASOPHILS % (AUTO) 1.7 % (0.0-2.0); EOSINOPHILS # (AUTO) 0.1 K/uL (0-0.4); HEMATOCRIT 25.8 % (36-48); HEMOGLOBIN 8.2 g/dL (12.0-16.0); LYMPHOCYTES # (AUTO) 1.5 K/uL (2.5-16.5); LYMPHOCYTES % (AUTO) 20.7 % (20.5-51.1); MEAN CORPUSCULAR HEMOGLOBIN 25 pg (27-31); MEAN CORPUSCULAR HGB CONC 32 g/dL (33-37); MEAN CORPUSCULAR VOLUME 77.1 fL (80-94); MONOCYTES # (AUTO) 0.5 K/uL (0.8-1.0); NEUTROPHILS % (AUTO) 69.6 % (42.2-75.2); PLATELET COUNT (AUTO) 319 K/uL (140-450); RED BLOOD CELL COUNT(AUTO) 3.34 MIL/uL (4.20-5.40); RED CELL DISTRIBUTION WIDTH 20.8 % (11.6-13.7); WHITE BLOOD COUNT (AUTO) 7.2 K/uL (4.8-10.8)
[2018-09-18 07:00] LABS: ANION GAP 11.4 (8-16); CARBON DIOXIDE 28.8 mmol/L (21-32); POTASSIUM 3.2 mmol/L (3.5-5.1)
[2018-09-18 07:16] LABS: MAGNESIUM 1.6 mg/dL (1.8-2.4); PHOSPHORUS 5.1 mg/dL (2.5-4.9)
--- NOTE | 2018-09-18 07:20 | NUR ---
ENDORSED PT TO DAY SHIFT NURSE FOR CONTINUITY OF CARE. PT IN STABLE CONDITION.
--- NOTE | 2018-09-18 07:30 | NUR ---
RECEIVED PATIENT BY BEDSIDE. AOX4 AND ON ROOM AIR. PATIENT IS PLEASANT AND NOT ON ANY DISTRESS. PATIENT WILL BE GETTING DIALYSIS TODAY. CHRONIC GAMEZ SINCE . PATIENT IS NOT COUGHING AT THIS TIME.
[2018-09-18 08:00] VITALS: BP 119/80
[2018-09-18] MEDS: OXYBUTYNIN 5 MG TAB PO SCH (08:00)
[2018-09-18] MEDS: CALCIUM ACETATE 667 MG TAB PO SCH ×3 (08:00→17:00)
[2018-09-18] MEDS: SENNA 8.6 MG TAB PO SCH ×2 (08:15→20:48)
[2018-09-18] MEDS: APIXABAN 2.5 MG TAB PO SCH ×2 (08:17→20:50)
[2018-09-18] MEDS: POLYETHYLENE GLYCOL 17 GM/PKT PO SCH ×2 (08:22→20:51)
[2018-09-18] MEDS: LACTOBACILLUS RHAMNOSUS GG 1 EACH CAP PO SCH (09:00)
[2018-09-18] MEDS ORDERED: EPOETIN ALFA 3,000 UNITS/ML VIAL IV SCH (09:00)
[2018-09-18] MEDS: amLODIPine 5 MG TAB PO SCH (09:00)
[2018-09-18] MEDS: MULTIVITAMIN 5 ML ORASYR PO SCH (09:00)
[2018-09-18] MEDS ORDERED: EPOETIN ALFA 3,000 UNITS/ML VIAL SUBQ SCH (09:00)
[2018-09-18] MEDS: ASCORBIC ACID 500 MG TAB PO SCH ×2 (09:00→20:51)
[2018-09-18] MEDS: FERROUS SULFATE 325 MG TABEC PO SCH ×2 (09:00→20:50)
[2018-09-18] MEDS: GABAPENTIN 300 MG CAP PO SCH (09:00)
--- NOTE | 2018-09-18 10:45 | NUR ---
HEMODIALYSIS IN PROGRESS. NO S/S OF DISTRESS NOTED
--- NOTE | 2018-09-18 11:30 | NUR ---
HEMODIALYSIS DONE. 2L OUT. BP 126/76 HR 102. NO S/S OF DISTRESS NOTED
--- NOTE | 2018-09-18 11:50 | NUR ---
PATIENT IS IN STABLE CONDITION. DIALYSIS ENDED AT 1130 WITH V/S WITHIN RANGE. PATIENT IS IN STABLE CONDITION AND DENIES ANY PAIN.
[2018-09-18 12:00] VITALS: BP 126/76
[2018-09-18] MEDS: LORazepam 1 MG TAB PO PRN (14:27)
--- NOTE | 2018-09-18 15:04 | NUR ---
09/18/18 RD INITIAL ASSESSMENT COMPLETED PLEASE REFER TO NUTRITION ASSESSMENT UNDER CARE ACTIVITY FOR ESTIMATED NUTRITIONAL NEEDS. 1. CONTINUE RENAL DIET TOLERATED 2. RECOMMEND NEPRO CARB STEADY BID IF PO INTAKE FALLS <50% 3. RD TO FOLLOW-UP 3-5 DAYS, MODERATE RISK KENDALL SALAZAR, RD
[2018-09-18] MEDS ORDERED: MAGNESIUM OXIDE 400 MG TAB PO SCH (15:30)
--- NOTE | 2018-09-18 15:59 | NUR ---
CALLED AND SPOKE WITH BRITTANEY VELA REGARDING TOMORROW'S DIALYSIS FOR THIS PATIENT.
[2018-09-18] MEDS ORDERED: POTASSIUM CHLORIDE 10 MEQ TABER PO SCH ×3 (16:00→21:00)
[2018-09-18 16:15] VITALS: BP 128/87
--- NOTE | 2018-09-18 16:27 | NUR ---
PATIENT REFUSED 20MEQ KDUR (TOTAL 40MEQ). PATIENT ONLY TOOK 2 PILLS OUT OF THE 4 PILLS ORDERED.
--- NOTE | 2018-09-18 19:26 | NUR ---
REPORT RECEIVED FROM AM NURSE AT BEDSIDE. PT IN STABLE CONDITION. AAOX4. INTRODUCED SELF TO PT. BOARD UPDATED. PT ON 3L O2 VIA NC. PT HAS A R UPPER CHEST YEMI CATH DOUBLE LUMEN RUNNING NS TKO PATENT AND INTACT. SKIN WARM, DRY, AND INTACT WITH NO OPEN WOUNDS. GAMEZ IN PLACE. BED LOCKED IN LOW POSITION. CALL SERRANO WITHIN REACH. SAFETY PRECAUTIONS IN PLACE. SEIZURE PRECAUTIONS IN PLACE.
--- NOTE | 2018-09-18 19:26 | NUR ---
ENDORSED PATIENT TO PROFESSOR OF PHILOSOPHY RN BY THE BEDSIDE. PATIENT IS NOT IN ANY DISTRESS. PATIENT IN STABLE CONDITION. CALL LIGHT IS IN WITHIN REACH AND BED IS AT THE LOWEST POSITION.
[2018-09-18 20:00] VITALS: BP 117/73
--- NOTE | 2018-09-18 20:48 | NUR ---
ELIQUIS AND SENNA GIVEN PO. ZOSYN HUNG AND RUNNING. PT REFUSED CYMBALTA, TRAZODONE, FERROUS SULFATE, KDUR, MIRALAX, AND VITAMIN C. PT TOLERATED WELL.
--- NOTE | 2018-09-18 20:49 | NUR ---
DILAUDID GIVEN FOR 10/10 PAIN. PT TOLERATED WELL.
[2018-09-18] MEDS: DULoxetine 30 MG CAPDR PO SCH (20:50)
[2018-09-18] MEDS: traZODone 50 MG TAB PO SCH (20:50)
[2018-09-19] VITALS: BP 114/76
[2018-09-19] MEDS: HYDROmorphone 2 MG TAB PO PRN ×6 (00:13→20:26)
--- NOTE | 2018-09-19 00:13 | NUR ---
DILAUDID GIVEN PO FOR 10/10 BACK PAIN. PT TOLERATED WELL.
--- NOTE | 2018-09-19 02:30 | NUR ---
PT SLEEPING COMFORTABLY. NO S/S OF DISTRESS NOTED. WILL CONTINUE TO MONITOR.
[2018-09-19 04:00] VITALS: BP 138/84
[2018-09-19] MEDS: PIPER/TAZO 2.25GM/D5W PREMIX 50 ML IV SCH ×3 (04:13→20:26)
--- NOTE | 2018-09-19 04:13 | NUR ---
DILAUDID GIVEN FOR 10/10 BACK PAIN. PT TOLERATED WELL.
[2018-09-19] MEDS: ALBUTEROL SULFATE/IPRATROPIU 3 ML SOL IH SCH ×3 (07:01→19:30)
[2018-09-19 07:03] LABS: BASOPHILS # (AUTO) 0.1 K/uL (0.00-0.22); BASOPHILS % (AUTO) 1.2 % (0.0-2.0); EOSINOPHILS # (AUTO) 0.1 K/uL (0-0.4); EOSINOPHILS % (AUTO) 1.1 % (0.0-4.0); HEMATOCRIT 27.6 % (36-48); HEMOGLOBIN 8.5 g/dL (12.0-16.0); LYMPHOCYTES # (AUTO) 1.4 K/uL (2.5-16.5); LYMPHOCYTES % (AUTO) 23.3 % (20.5-51.1); MEAN CORPUSCULAR HEMOGLOBIN 24 pg (27-31); MEAN CORPUSCULAR HGB CONC 31 g/dL (33-37); MEAN CORPUSCULAR VOLUME 78.5 fL (80-94); MONOCYTES # (AUTO) 0.4 K/uL (0.8-1.0); MONOCYTES % (AUTO) 6.7 % (1.7-9.3); NEUTROPHILS # (AUTO) 4.2 K/uL (1.8-7.7); NEUTROPHILS % (AUTO) 67.7 % (42.2-75.2); PLATELET COUNT (AUTO) 342 K/uL (140-450); RED BLOOD CELL COUNT(AUTO) 3.52 MIL/uL (4.20-5.40); RED CELL DISTRIBUTION WIDTH 20.1 % (11.6-13.7); WHITE BLOOD COUNT (AUTO) 6.2 K/uL (4.8-10.8)
--- NOTE | 2018-09-19 07:10 | NUR ---
REPORT GIVEN TO AM NURSE AT BEDSIDE. PT IN STABLE CONDITION.
--- NOTE | 2018-09-19 07:15 | NUR ---
RECEIVED PATIENT FROM THE CCNA RN BY HER BEDSIDE. PATIENT IS ALERT AND ORIENTED. SHE IS ON NC 3L/MIN. COMPLAINS OF PAIN (SCORE 7 OUT OF 10) ON HER LOWER BACK. WILL MEDICATE PATIENT TO REDUCE PAIN LEVEL. BED AT THE LOWEST POSITION AND CALL LIGHT WITHIN REACH
[2018-09-19 07:30] LABS: MAGNESIUM 1.5 mg/dL (1.8-2.4); PHOSPHORUS 2.9 mg/dL (2.5-4.9)
--- NOTE | 2018-09-19 07:30 | NUR ---
PATIENT IS GETTING DIALYSIS. FOOD TRAY NEARBY.
[2018-09-19 07:36] LABS: ANION GAP 11.3 (8-16); CARBON DIOXIDE 30.4 mmol/L (21-32); POTASSIUM 3.7 mmol/L (3.5-5.1)
[2018-09-19 07:49] VITALS: BP 115/77
[2018-09-19] MEDS ORDERED: MAG SULF 2000 MG/WATER PREMIX 50 ML IV ONE (07:50)
[2018-09-19] MEDS: CALCIUM ACETATE 667 MG TAB PO SCH ×3 (08:00→17:00)
[2018-09-19] MEDS: OXYBUTYNIN 5 MG TAB PO SCH (08:00)
[2018-09-19] MEDS: SENNA 8.6 MG TAB PO SCH ×2 (08:24→20:19)
[2018-09-19] MEDS: POLYETHYLENE GLYCOL 17 GM/PKT PO SCH ×2 (08:25→20:19)
[2018-09-19] MEDS: APIXABAN 2.5 MG TAB PO SCH ×2 (08:27→20:34)
[2018-09-19 08:39] LABS: CREATININE 1.7 mg/dL (0.6-1.3)
[2018-09-19] MEDS: amLODIPine 5 MG TAB PO SCH (08:57)
[2018-09-19] MEDS: LACTOBACILLUS RHAMNOSUS GG 1 EACH CAP PO SCH (08:57)
[2018-09-19] MEDS: GABAPENTIN 300 MG CAP PO SCH (08:58)
[2018-09-19] MEDS: FERROUS SULFATE 325 MG TABEC PO SCH ×2 (08:58→20:19)
[2018-09-19] MEDS: ASCORBIC ACID 500 MG TAB PO SCH ×2 (08:59→20:19)
[2018-09-19] MEDS: MULTIVITAMIN 5 ML ORASYR PO SCH (08:59)
[2018-09-19] MEDS ORDERED: DICLOFENAC 25 MG TABEC PO SCH (09:00)
--- NOTE | 2018-09-19 09:15 | NUR ---
PATIENT IS SLEEPING. BED IS AT THE LOWEST POSITION WITH THE CALL LIGHT WITHIN REACH. Addendum: 09/19/18 at 1242 by Saadia Chadwick RN DIALYSIS IN PROCESS. HAIR SPINNER IS BY THE BEDSIDE.
--- NOTE | 2018-09-19 10:30 | NUR ---
PATIENT IS SLEEPING. DIALYSIS STILL IN PROGRESS. ASSISTANT ACCOUNT EXECUTIVE IS BY THE BEDSIDE.
[2018-09-19] MEDS ORDERED: FLUCONAZOLE 200 MG/NS PREMIX 100 ML IV SCH (11:00)
--- NOTE | 2018-09-19 11:00 | NUR ---
DIALYSIS IS FINISHED WITH 1.8L OUT, BP 121/84 HR 106. PATIENT IS AWAKE AND ALERT. PATIENT ON 3L/MIN
[2018-09-19] MEDS: MAGNESIUM SULFATE 1GM in DEXTROSE 5% 100 ML PREMIX IV SCH ×2 (11:32→13:04)
[2018-09-19 11:41] VITALS: BP 123/91
--- NOTE | 2018-09-19 14:15 | NUR ---
PATIENT IS COMFORTABLE AND WITH VISITORS BY HER BEDSIDE.
[2018-09-19 16:00] VITALS: BP 120/78
[2018-09-19] MEDS ORDERED: SODIUM PHOSPHATE 118 ML ENEM RC PRN (16:08)
--- NOTE | 2018-09-19 16:30 | NUR ---
PATIENT EVALUATED BY DR. DOUGLAS. PER DR. DOUGLAS, THE PATIENT NEEDS TO HAVE A NEW HD SITE BECAUSE HE BELIEVES THAT THE FUNGAL INFECTION IS FROM THE PRESENT DIALYSIS SITE. DR. FRIEDMAN NOTIFIED
[2018-09-19] MEDS ORDERED: EPOETIN ALFA 10,000 UNITS/ML VIAL IV SCH (17:00)
[2018-09-19] MEDS: MICAFUNGIN SODIUM 100 MG in NACL 0.9% 100 ML IV SCH (17:14)
[2018-09-19] MEDS: LORazepam 1 MG TAB PO PRN (17:24)
--- NOTE | 2018-09-19 17:45 | NUR ---
PATIENT HAD A BM. THE PATIENT WAS CLEANED AND REPOSITIONED. SKIN DAMAGED NOTED ON THE BUTTOCKS. OPTIFOAM DRESSING APPLIED.
--- NOTE | 2018-09-19 19:34 | NUR ---
RECEIVED BEDSIDE REPORT FROM ECHO KAY, PATIENT IN BED, ON FALL AND SEIZURE PRECAUTIONS, GAMEZ CATH IN PLACE DRAINING DARK YELLOW URINE. NOTED YEMI CATH IN RIGHT UPPER CHEST, INFUSING NS AT 10 ML/HR. NOTED SACRAL SKIN TEAR, UPDATED BOARD, CALL LIGHT WITHIN REACH, EXPLAINED PLAN OF CARE, WILL CONTINUE TO MONITOR.
--- NOTE | 2018-09-19 19:34 | NUR ---
PATIENT REPORT GIVEN AT BEDSIDE. PATIENT IS IN STABLE CONDITION WITH NO S&S OF DISTRESS.
[2018-09-19 20:00] VITALS: BP 134/100
[2018-09-19] MEDS: DULoxetine 30 MG CAPDR PO SCH (20:18)
[2018-09-19] MEDS: traZODone 50 MG TAB PO SCH (20:19)
--- NOTE | 2018-09-19 20:26 | NUR ---
PATIENT C/O PAIN 06/26, MEDICATED WITH DILAUDID ACCORDING TO MD ORDER. PATIENT REFUSED ALL SCHEDULED MEDICATIONS EXCEPT ELIQUIS AND ZOSYN, PATIENT STATED "I DONT TAKE THOSE".
--- NOTE | 2018-09-19 21:26 | NUR ---
PATIENT ASLEEP IN BED NO SIGNS OF DISTRESS, CALL LIGHT WITHIN REACH, WILL CONTINUE TO MONITOR.
--- NOTE | 2018-09-19 23:50 | NUR ---
PATIENT AWARE OF NEEDED SPUTUM SAMPLE, REFUSED RT TO DEEP SUCTION, WILL CONTINUE TO MONITOR.
[2018-09-20] VITALS: BP 126/91
--- NOTE | 2018-09-20 00:24 | NUR ---
PATIENT C/O PAIN 08/26, WILL MEDICATE ACCORDING TO MD ORDER. B/P 126/91 HR 118.
[2018-09-20] MEDS: HYDROmorphone 2 MG TAB PO PRN ×6 (00:26→20:29)
--- NOTE | 2018-09-20 00:47 | NUR ---
SPOKE WITH DR ALCOCER REGARDING YEMI CATH REMOVAL, TOLD THE TEAM WILL FOLLOW UP TOMORROW MORNING, ALSO NOTIFIED OF LOW MG 1.5.
--- NOTE | 2018-09-20 02:00 | NUR ---
PATIENT RESTING IN BED, CALL LIGHT WITHIN REACH, WILL CONTINUE TO MONITOR
--- NOTE | 2018-09-20 03:44 | NUR ---
PATIENT C/O PAIN MEDICATED WITH DILAUDID ACCORDING TO MD ORDER
[2018-09-20 04:00] VITALS: BP 126/90
[2018-09-20] MEDS: PIPER/TAZO 2.25GM/D5W PREMIX 50 ML IV SCH ×3 (04:18→20:32)
--- NOTE | 2018-09-20 05:50 | NUR ---
DUE MEDICATION GIVEN PATIENT TOLERATED WELL WILL CONTINUE TO MONITOR.
[2018-09-20] MEDS: ALBUTEROL SULFATE/IPRATROPIU 3 ML SOL IH SCH ×3 (07:20→19:17)
--- NOTE | 2018-09-20 07:32 | NUR ---
ENDORSED PATIENT TO DAY SHIFT NURSE, PATIENT STABLE.
--- NOTE | 2018-09-20 07:33 | NUR ---
RECEIVED REPORT FROM PM SHIFT NURSE. PT ASLEEP IN BED, RESPIRATIONS EVEN & UNLABORED. CALL LIGHT WITHIN REACH.
[2018-09-20 08:00] VITALS: BP 132/82
[2018-09-20] MEDS: CALCIUM ACETATE 667 MG TAB PO SCH ×3 (08:00→17:00)
[2018-09-20] MEDS: OXYBUTYNIN 5 MG TAB PO SCH (08:00)
[2018-09-20] MEDS: ALBUTEROL SULFATE/IPRATROPIU 3 ML SOL IH PRN (08:18)
--- NOTE | 2018-09-20 08:28 | NUR ---
PT CALLED FOR PRN RX
[2018-09-20] MEDS: ASCORBIC ACID 500 MG TAB PO SCH ×2 (09:00→20:35)
[2018-09-20] MEDS: MULTIVITAMIN 5 ML ORASYR PO SCH (09:00)
[2018-09-20] MEDS: amLODIPine 5 MG TAB PO SCH (09:00)
[2018-09-20] MEDS: GABAPENTIN 300 MG CAP PO SCH (09:00)
[2018-09-20] MEDS ORDERED: VANCOMYCIN 500 MG in DEXTROSE 5% 100 ML IV SCH (09:00)
[2018-09-20] MEDS: FERROUS SULFATE 325 MG TABEC PO SCH ×2 (09:00→20:35)
[2018-09-20] MEDS: POLYETHYLENE GLYCOL 17 GM/PKT PO SCH ×2 (09:00→20:35)
[2018-09-20] MEDS: SENNA 8.6 MG TAB PO SCH ×2 (09:00→20:29)
--- NOTE | 2018-09-20 09:05 | NUR ---
PT REFUSED MOST DUE MEDS. STATES SHE DOESN'T TAKE THEM ANYMORE & SHE HAD LOOSE STOOLS LAST NIGHT. EXPLAINED RISKS & BENEFITS OF ROUTINE REGIMEN. PT VERBALIZED UNDERSTANDING BUT CONT TO REFUSE. CALL LIGHT WITHIN REACH.
[2018-09-20] MEDS: LACTOBACILLUS RHAMNOSUS GG 1 EACH CAP PO SCH (09:14)
[2018-09-20] MEDS: APIXABAN 2.5 MG TAB PO SCH ×2 (09:22→20:35)
--- NOTE | 2018-09-20 10:00 | NUR ---
HRIS ANALYST OFFERED BEDBATH & REPOSITIONING BUT PT REFUSED & STATES SHE DOESN'T NEED TO BE CLEANED AT THE MOMENT. SPOKE WITH PT & EXPLAINED RISK OF SKIN BREAKDOWN. PT VERBALIZED UNDERSTANDING BUT CONT TO REFUSE, STATES WILL PARTICIPATE LATER. ENCOURAGED PT TO CALL FOR NURSE WHEN SHE IS READY. CALL LIGHT WITHIN REACH.
[2018-09-20] MEDS: LORazepam 1 MG TAB PO PRN (10:49)
--- NOTE | 2018-09-20 10:49 | NUR ---
PT C/O FEELING ANXIOUS & RESTLESS. NO C/O PAIN AT THIS TIME. RESPIRATIONS EVEN & UNLABORED. ATIVAN ADMINISTERED. CALL LIGHT WITHIN REACH.
[2018-09-20 11:01] LABS: BASOPHILS % (AUTO) 0.5 % (0.0-2.0); EOSINOPHILS % (AUTO) 0.1 % (0.0-4.0); HEMATOCRIT 29.6 % (36-48); HEMOGLOBIN 9.1 g/dL (12.0-16.0); LYMPHOCYTES # (AUTO) 0.8 K/uL (2.5-16.5); LYMPHOCYTES % (AUTO) 8.9 % (20.5-51.1); MEAN CORPUSCULAR HEMOGLOBIN 24 pg (27-31); MEAN CORPUSCULAR HGB CONC 31 g/dL (33-37); MEAN CORPUSCULAR VOLUME 77.7 fL (80-94); MONOCYTES # (AUTO) 0.3 K/uL (0.8-1.0); MONOCYTES % (AUTO) 3.5 % (1.7-9.3); NEUTROPHILS # (AUTO) 8.3 K/uL (1.8-7.7); PLATELET COUNT (AUTO) 334 K/uL (140-450); RED BLOOD CELL COUNT(AUTO) 3.81 MIL/uL (4.20-5.40); WHITE BLOOD COUNT (AUTO) 9.5 K/uL (4.8-10.8)
[2018-09-20 11:22] LABS: ALBUMIN 1.7 g/dL (3.4-5.0); ANION GAP 12.2 (8-16); CARBON DIOXIDE 27.6 mmol/L (21-32); CREATININE 1.7 mg/dL (0.6-1.3); PHOSPHORUS 2.4 mg/dL (2.5-4.9); POTASSIUM 3.8 mmol/L (3.5-5.1); TOTAL BILIRUBIN 0.4 mg/dL (0.0-1.0)
--- NOTE | 2018-09-20 11:49 | NUR ---
REASSESSED FOR ANXIETY. PT STATES SHE FEELS VERY CALM AT THIS TIME. NO C/O DISCOMFORT. OFFERED ASSISTANCE WITH ADL TASKS. PT STATES SHE IS DOING FINE FOR NOW. CALL LIGHT WITHIN REACH. RIGHT SUBCLAVIAN YEMI CATH GAUZE DRESSING CLEAN, DRY, & INTACT. NO SWELLING NOTED TO SURROUNDING TISSUE.
[2018-09-20 12:00] VITALS: BP 125/81
--- NOTE | 2018-09-20 13:43 | NUR ---
PT IN HIGH FOWLERS IN BED, EATING LUNCH. PT DENIES ANY DISCOMFORT AT THIS TIME. RESPIRATIONS EVEN & UNLABORED. CALL LIGHT WITHIN REACH.
--- NOTE | 2018-09-20 15:15 | NUR ---
OFFERED PERICARE & REPOSITIONING. PT REFUSED & STATES SHE DOESN'T NEED TO BE CLEANED OR REPOSITIONED AT THIS TIME. EXPLAINED RISK OF SKIN BREAKDOWN & BENEFITS OF ROUTINE SKIN ASSESSMENT. PT VERBALIZED UNDERSTANDING. STATES THAT SHE GETS PAIN TO HER BACK WHENEVER SHE IS REPOSITIONED. PAIN ASSESSMENT DONE. PT STATES 4/10 BACK PAIN. REFUSED ACETAMINOPHEN WHEN OFFERED & WANTS TO WAIT FOR NEXT DUE DILAUDID @ 1545. PT AGREE TO PARTICIPATE IN PERICARE AFTER DILAUDID IS ADMINISTERED. CALL LIGHT WITHIN REACH. INFORMED PET FEEDER OF PT REQUEST.
[2018-09-20 16:00] VITALS: BP 131/86
--- NOTE | 2018-09-20 16:40 | NUR ---
BEDBATH & SKIN ASSESSMENT COMPLETED AT THIS TIME. OPEN SKIN PRESENT TO LEFT SIDE OF COCCYX. PT TEACHING PROVIDED RE: BENEFITS OF FREQUENT REPOSITIONING. PT VERBALIZED UNDERSTANDING & AGREE WITH PLAN OF CARE.
[2018-09-20] MEDS: MICAFUNGIN SODIUM 100 MG in NACL 0.9% 100 ML IV SCH (17:08)
--- NOTE | 2018-09-20 18:00 | NUR ---
DR DOUGLAS ASSESSING PT AT BEDSIDE. VERBAL ORDER GIVEN FOR ROBITUSSIN, READ BACK & VERIFIED WITH MD. ORDER NOTED. PT VERBALIZED UNDERSTANDING & AGREE WITH PLAN OF CARE.
[2018-09-20] MEDS ORDERED: guaiFENesin 20 MG/ML UDC PO PRN (18:05)
--- NOTE | 2018-09-20 19:15 | NUR ---
BEDSIDE REPORT GIVEN TO PM SHIFT NURSE GENE.
--- NOTE | 2018-09-20 19:20 | NUR ---
RECEIVED FROM AM RN IN BED AWAKE AND ALERT SITTING UP. MAXIMUM ASSIST RT PARAPLEGIC. CARE PLANS FOR THE NIGHT EXPLAINED. CALL LIGHT WITH IN REACH. NO SOB. DENIES PAIN AT THIS TIME. HD PT. YEMI CATH IN PLACE FOR DISCONTINUE . AWAITING FURTHER ORDERS PER AM RN. DX. OF PNA AND UTI. ORIENTED X 4. UPPER EXTREMITIES MOVING WELL. WILL BE TURNED TO SIDES Q 2H RT WITH COCCYX DECUBITUS ULCER. PT. PER REPORT HAVE TENDENCY TO TURN HERSELF BACK TO POSITION.
[2018-09-20] MEDS: DULoxetine 30 MG CAPDR PO SCH (20:34)
[2018-09-20] MEDS: traZODone 50 MG TAB PO SCH (20:35)
[2018-09-20] MEDS: SODIUM PHOS / POTASSIUM PHOS 1 PKT PDR PO SCH (20:35)
[2018-09-20 20:38] VITALS: BP 124/78
--- NOTE | 2018-09-20 21:25 | NUR ---
INFORMED RESIDENT MD ALCOCER RE: PT. REFUSED TO TAKE SOME OF HER NIGHT MEDICATIONS ORDERED. PT. STATED"I KNOW MY BODY AND I KNOW MY MEDICATIONS THAT I NEED." EXPLAINED PROS AND CONS OF NOT TAKING IT. STATED "OK" NO FURTHER ORDERS GIVEN.
[2018-09-21] VITALS (7 sets, daily range): BP systolic 110–137; BP diastolic 74–90
[2018-09-21] MEDS: HYDROmorphone 2 MG TAB PO PRN ×6 (00:46→21:21)
--- NOTE | 2018-09-21 00:48 | NUR ---
PT. AWAKE REGGIE ALERT. SITTING UP IN BED. REQUESTED FOR PAIN RELIEVER. MEDICATED REQUESTED. PT. STATED SHE IS GOING BACK TO SLEEP. CALL LIGHT WITH IN REACH. TELEMETRY MONITORING IN PLACE.
[2018-09-21] MEDS: PIPER/TAZO 2.25GM/D5W PREMIX 50 ML IV SCH ×2 (04:16→23:08)
--- NOTE | 2018-09-21 04:33 | NUR ---
AWAKE AND REQUESTED FOR PAIN RELIEVER. PT. TURNED TO SIDES Q 2H. ENCOURAGED TO STAY ON TURNED SIDE. AWAKE AND ALERT. PILLOW SUPPORT TO PRESSURE AREAS.
--- NOTE | 2018-09-21 07:24 | NUR ---
SLEEPING. WOKE UP EASILY WHEN INTRODUCED TO THE NEXT RN FOR CONTINUITY OF CARE. NO COMPLAINTS DONE.
--- NOTE | 2018-09-21 07:27 | NUR ---
RECEIVED BEDSIDE REPORT FROM FIRST DYER RN. PT IS SLEEPING IN BED, AROUSABLE BY VOICE. AOX4. NO C/O PAIN AND DISCOMFORT AT THIS TIME. LUNGS CTA. NO S/S RESPIRATORY DISTRESS. SATURATING 100% ON 3.5L NC. PT IS PARAPLEGIC, ABLE TO TURN SELF IN BED AND MOVE BUE. PER FIRST DYER, PT PREFERS TO TURN SELF. COCCYX ULCER. YEMI CATH IN PLACE, TO BE REMOVED TODAY. ESRD ON HD FRIDAY AND FRIDAY. HD TO BE DONE TODAY. VITALS STABLE. F/C IN PLACE, DRAINING URINE. ALL SAFETY PRECAUTIONS IN PLACE, WILL CONTINUE TO MONITOR. Addendum: 09/21/18 at 1015 by Ileana Shabazz Meng, RN PER FIRST DYER RN GENE, PT IS TO RECEIVE HD ON EXISTING YEMI CATH BEFORE REMOVAL, AND INSERTION OF NEW HD CATH. Addendum: 09/21/18 at 1111 by Ileana Shabazz Meng, RN 1+ BLE PITTING EDEMA. ABDOMEN IS DISTENDED BUT NOT-TENDER TO PALPATION.
[2018-09-21] MEDS: ALBUTEROL SULFATE/IPRATROPIU 3 ML SOL IH SCH ×3 (07:40→19:04)
[2018-09-21 07:54] LABS: BASOPHILS # (AUTO) 0.1 K/uL (0.00-0.22); BASOPHILS % (AUTO) 0.9 % (0.0-2.0); EOSINOPHILS # (AUTO) 0.1 K/uL (0-0.4); EOSINOPHILS % (AUTO) 0.9 % (0.0-4.0); HEMATOCRIT 26.8 % (36-48); HEMOGLOBIN 8.3 g/dL (12.0-16.0); LYMPHOCYTES # (AUTO) 1.6 K/uL (2.5-16.5); MEAN CORPUSCULAR HEMOGLOBIN 24 pg (27-31); MEAN CORPUSCULAR HGB CONC 31 g/dL (33-37); MONOCYTES # (AUTO) 0.6 K/uL (0.8-1.0); MONOCYTES % (AUTO) 5.6 % (1.7-9.3); NEUTROPHILS # (AUTO) 7.7 K/uL (1.8-7.7); NEUTROPHILS % (AUTO) 76.6 % (42.2-75.2); PLATELET COUNT (AUTO) 352 K/uL (140-450); RED BLOOD CELL COUNT(AUTO) 3.47 MIL/uL (4.20-5.40); RED CELL DISTRIBUTION WIDTH 20.3 % (11.6-13.7); WHITE BLOOD COUNT (AUTO) 10.1 K/uL (4.8-10.8)
[2018-09-21] MEDS: OXYBUTYNIN 5 MG TAB PO SCH (08:00)
[2018-09-21] MEDS: CALCIUM ACETATE 667 MG TAB PO SCH ×3 (08:00→17:00)
[2018-09-21 08:27] LABS: ALBUMIN 1.6 g/dL (3.4-5.0); ANION GAP 13.3 (8-16); CARBON DIOXIDE 25.5 mmol/L (21-32); CREATININE 2.2 mg/dL (0.6-1.3); PHOSPHORUS 3.4 mg/dL (2.5-4.9); POTASSIUM 3.8 mmol/L (3.5-5.1); TOTAL BILIRUBIN 0.3 mg/dL (0.0-1.0)
--- NOTE | 2018-09-21 08:53 | NUR ---
CALLED PHARMACY BECAUSE BOTH TELE AND MS [facility] ARE OUT OF STOCK FOR DILAUDID PO. PHARMACY TO BRING TO UNIT.
[2018-09-21] MEDS: SODIUM PHOS / POTASSIUM PHOS 1 PKT PDR PO SCH (09:00)
[2018-09-21] MEDS: ASCORBIC ACID 500 MG TAB PO SCH ×2 (09:00→20:32)
[2018-09-21] MEDS: amLODIPine 5 MG TAB PO SCH (09:00)
[2018-09-21] MEDS: APIXABAN 2.5 MG TAB PO SCH ×2 (09:00→20:29)
[2018-09-21] MEDS: FERROUS SULFATE 325 MG TABEC PO SCH ×2 (09:00→20:31)
[2018-09-21] MEDS: POLYETHYLENE GLYCOL 17 GM/PKT PO SCH ×2 (09:00→20:31)
[2018-09-21] MEDS: LACTOBACILLUS RHAMNOSUS GG 1 EACH CAP PO SCH (09:00)
[2018-09-21] MEDS: MULTIVITAMIN 5 ML ORASYR PO SCH (09:00)
[2018-09-21] MEDS: GABAPENTIN 300 MG CAP PO SCH (09:00)
[2018-09-21] MEDS: SENNA 8.6 MG TAB PO SCH ×3 (09:00→20:27)
--- NOTE | 2018-09-21 09:24 | NUR ---
ADMINISTERED DILAUDID. PT REFUSING TO TAKE ANY OTHER MEDICATIONS NOW. STATES "MY STOMACH DOESN'T FEEL WELL. I'LL TAKE THE DILAUDID, WAIT A WHILE, HEAT UP AND EAT MY BREAKFAST, THEN TAKE MY OTHER MEDICATIONS". DENIES NAUSEA/VOMITING. WILL OFFER SCHEDULED 0800 AND 0900 MEDS TO PT AT LATER TIME.
--- NOTE | 2018-09-21 09:29 | NUR ---
AMLODIPINE NOT ADMINISTERED BECAUSE OF SCHEDULED HD TODAY. ELIQUIS NOT ADMINISTERED BECAUSE OF REMOVAL OF YEMI CATH AND INSERTION OF NEW HD CATH TODAY.
--- NOTE | 2018-09-21 10:14 | NUR ---
CALLED [facility] TO NOTIFY THAT THERE IS ORDER FOR HD TODAY. MORA VELA VERBALIZED UNDERSTANDING.
--- NOTE | 2018-09-21 10:21 | NUR ---
HELPED TEACHING PASTOR GRACE WITH TURNING PT IN BED TO EVALUATE WOUNDS. OPEN WOUND AT COCCYX AND RIGHT BUTTOCK. CHANCE DODGE PERFORMED WOUND CARE AND WILL GIVE RECOMMENDATIONS TO
--- NOTE | 2018-09-21 10:29 | NUR ---
PT IN WOUND CARE BED. CONNECTED BED TO WOUND CARE PUMP.
--- NOTE | 2018-09-21 10:46 | NUR ---
CALLED [facility] BECAUSE PT TO GET HD CATH PLACEMENT LATER TODAY AND RECEIVE HD USING THE NEWLY PLACED HD CATH. WILL CALL [facility] AGAIN WHEN NEW HD CATH PLACED AND PT READY TO RECEIVE HD.
--- NOTE | 2018-09-21 10:49 | NUR ---
NOTIFIED DR. GONZALEZ THAT PT WILL GET HD CATH PLACEMENT TODAY BUT HAS RENAL DIET ORDER. TO CHANGE DIET ORDER.
--- NOTE | 2018-09-21 12:06 | NUR ---
WOUND CARE EVALUATION NOTE: REASON FOR EVALUATION: MULTIPLE WOUNDS SKIN ASSESSMENT DONE WITH PRIMARY RN AT 10:30 AM WITH THIS 43 Y/O FEMALE PT ADMITTED FROM HOME TO [facility] WITH INITIAL DX OF COUGHING AND SOB. PAST MEDICAL HX INCLUDE ESRD WITH HD 2X A WEEK, PRESSURE INJURY AND PARAPLEGIC. ALL ABOVE INFORMATION OBTAINED FROM ADMISSION H&P. AND PT. PT IS AAX4. LABS ARE WBC 10.1, H/H 8.3/26.8, GLUCOSE 95 AND ALBUMIN 1.6. PT IS AWAKE. SKIN IS WARM AND DRY, MULTIPLE TATTOOS AND SURGICAL OLD HEALED SCARS TO BACK, HIPS AND KNEES. HD CATHETER TO RIGHT SUBCLAVIAN DRESSING CDI. BLE NO HAIR GROWTH, +2 EDEMA TO RIGHT AND LEFT LOWER EXTREMITIES.BILATERAL DORSAL PEDAL PULSES PRESENT AND NORMAL. CAPILLARY REFILLED < 2 SEC. X 10 TOES. ABDOMINAL DISTENTION, F/C IN PLACE SMALL AMOUNT OF YELLOW URINE OUT PUT OBSERVED.INCONTINENT OF SMALL AMOUNT LBM X1 DURING ASSESSMENT. PLAN OF CARE DISCUSSED WITH PRIMARY RN AND PT. PT. VERBALIZING UNDERSTANDING. CLARIFICATION: SACRALCOCCYX SKIN INTACT WITH DTI; LEFT ISCHIUM PRESSURE INJURIES STAGE 3 INTEGUMENTARY: -RIGHT ISCHIUM OLD HEALED SCARS -BLE AND FEET DRYNESS, SKIN INTACT -PRESSURE INJURY DTI TO OLD HEALED SACRALCOCCYX SCAR SURROUNDING SKIN 4X5 CM, SKIN INTACT, DENUDED, DARK PURPLE, INDICATED FURTHER DAMAGE. - PRESSURE INJURY STAGE 3 TO LEFT ISCHIUM 6X5X0.3, IRREGULAR SHAPE, WOUND BED RED AND MOIST, PERIWOUND SKIN DENUDED, REDNESS, NO ODOR -INCONTINENT ASSOCIATE DERMATITIS (IAD) REDNESS TO: B/L GROINS EXTENDED TO PERINEUM RECOMMENDATIONS: -CLEANSE LEFT ISCHIUM WITH WOUND CARE SOLUTIONS, PAT DRY, APPLY THERAHONEY DRESSING AND COVER WITH DRY DRESSING CHANGE QOD AND PRN IF SOILING. -APPLY HYDRAGUARD TO: B/L GROINS EXTENDED TO PERINEUM IAD AND BLE/FEET DRYNESS BID AND LEAVE IT OPEN TO AIR -APPLY FORM DRESSING TO SACROCOCCY AND RIGHT ISCHIUM Q7 DAYS AND PRN IF SOILING PREVENTION -APPLY SKIN PREP TO SACRAL COCCYX SURROUNDING DTI BID AND PRN IF SOILING -KEEP SKIN DRY AND CLEAN AT ALL TIMES, PLEASE CHECK Q2H AND PRN FOR INCONTINENCY OF BOWEL -OFFLOAD BILATERAL HEELS BY PLACING PILLOWS UNDER CALVES UNLESS OTHERWISE CONTRAINDICATED -PRESSURE REDISTUBUTION SURFACE THERAPY -TURN AND REPOSITION Q2H, OFFLOAD SACRALCOCCYX BY TURNING RIGHT AND LEFT -CONTINUE TO FOLLOW RD RECOMMENDATIONS ALL ABOVE RECOMMENDATIONS DISCUSSED WITH PRIMARY RN WILL FOLLOW UP PT Q7-10 DAYS. PLEASE CONTACT WOUND CARE NURSE FOR ANY QUESTION AND CHANGE OF WOUND CONDITION.
--- NOTE | 2018-09-21 12:06 | NUR ---
OFFERED 0800 AND 0900 MEDICATIONS TO PT BUT PT REFUSED ALL EXCEPT THE SENNA. INFORMED PT THAT HER CALCIUM AND IN BLOOD ARE LOW. EXPLAINED INDICATIONS FOR ALL MEDICATIONS WELL RISKS AND BENEFITS. PT VERBALIZED UNDERSTANDING BUT CONTINUES TO REFUSE, STATES "I DON'T TAKE VITAMINS, DON'T TAKE THE NEURONTIN AND OXYBUTYNIN". WILL CONTINUE TO MONITOR.
--- NOTE | 2018-09-21 13:34 | NUR ---
PT STATES SHE DOES NOT WANT BREATHING TX AT THIS TIME STATING SHE IS HAVING BACK PAIN. PT NOT IS NOT IN RESPIRATORY DISTRESS AND NOT SOB.
--- NOTE | 2018-09-21 13:35 | NUR ---
WILL NOTIFY DR. GONZALEZ TO SEE [employer] RUG SETTER NOTES FOR WOUND CARE RECOMMENDATIONS.
--- NOTE | 2018-09-21 13:42 | NUR ---
DR. STACY ORDERED FOR STAT HD. HIMS MANAGER WILL NOT BE AVAILABLE UNTIL 1600 TO START HD ON PATIENT. WILL NOTIFY DR. STACY.
--- NOTE | 2018-09-21 13:49 | NUR ---
CALLED DR. STACY'S OFFICE [phone] AND LEFT MESSAGE WITH STAFF. PER STAFF, DR. STACY SHOULD BE BACK IN OFFICE IN 20 MINUTES. LEFT MESSAGE TO SAY HEALTH LEAD WILL BE AT PT BEDSIDE TO START HD AT 1600.
--- NOTE | 2018-09-21 13:57 | NUR ---
LEFT MESSAGE FOR DR. GONZALEZ VIA DR. MILLER. WOUND CARE RECOMMENDATIONS ARE IN NURSING NOTED. ALSO NOTIFIED DR. MILLER THAT PT HAS NEW COMPLAINT OF PLEURITIC CHEST PAIN.
--- NOTE | 2018-09-21 14:05 | NUR ---
PATIENT REFUSED BREATHING TX EARLIER BUT WISHES TO RECEIVE IT NOW. HAVE NOTIFIED RT, HE WILL SEE PATIENT.
[2018-09-21] MEDS: ALBUTEROL SULFATE/IPRATROPIU 3 ML SOL IH PRN (14:10)
--- NOTE | 2018-09-21 15:48 | NUR ---
PER MORA FROM [facility], POULTICE MACHINE OPERATOR WILL NOT BE ABLE TO BE AT BEDSIDE TO START HD UNTIL [facility]. WILL NOTIFY DR. STACY.
--- NOTE | 2018-09-21 15:52 | NUR ---
NOTIFIED DR. STACY THAT COMMISSION AGENT LIVESTOCK WILL BE AT BEDSIDE TO START HD AT [address] STACY, HE WILL TAKE OUT THE EXISTING HD CATH TONIGHT OR TOMORROW.
--- NOTE | 2018-09-21 16:22 | NUR ---
PATIENT STATES THE AGRICULTURE CONSULTANT SAW HER TODAY AND SAID HE WILL DISCUSS WITH ATTENDING REGARDING PAIN MED ADJUSTMENT FOR BETTER PAIN CONTROL. PATIENT WANTED UPDATE ON THE ISSUE. WILL ASK DR. GONZALEZ.
--- NOTE | 2018-09-21 16:24 | NUR ---
NOTIFIED DR. GONZALEZ REGARDING PT CONCERNS ABOUT PAIN MEDS. ALSO NOTIFIED DR. GONZALEZ THAT HD WILL BE AT [address] STACY HAD BEEN NOTIFIED AND STATED HE WILL REMOVE RT SUBCLAVIAN HD CATH TONIGHT AFTER HD OR TOMORROW.
--- NOTE | 2018-09-21 16:29 | NUR ---
NOTIFIED PHARMACY THAT HOUSEKEEPING SUPERVISOR WILL NOT BE AT BEDSIDE TO START HD UNTIL [address] [facility].
[2018-09-21] MEDS: MICAFUNGIN SODIUM 100 MG in NACL 0.9% 100 ML IV SCH (17:25)
--- NOTE | 2018-09-21 17:29 | NUR ---
PATIENT REFUSED PHOSLO. EXPLAINED INDICATION WELL RISK AND BENEFITS BUT PT CONTINUES TO REFUSE.
--- NOTE | 2018-09-21 17:48 | NUR ---
ASKED DR. GONZALEZ TO CLARIFY WHETHER DR. STACY PLANS TO INSERT NEW HD CATH TODAY. PER DR. GONZALEZ, NO NEW HD CATH WILL BE INSERTED IN THE NEXT FEW DAYS. DR. GONZALEZ WILL ORDER RENAL DIET FOR PT'S DINNER.
--- NOTE | 2018-09-21 18:01 | NUR ---
CALLED K[employer] TO BRING PT DINNER TRAY SINCE DIET ORDER WAS JUST UPDATED.
--- NOTE | 2018-09-21 19:08 | NUR ---
ENDORSED PLAN OF CARE TO POOL MANAGER RN. PT IN STABLE CONDITION.
--- NOTE | 2018-09-21 19:09 | NUR ---
REPORT RECEIVED FROM AM NURSE AT BEDSIDE. PT IN STABLE CONDITION. AAOX4. INTRODUCED SELF TO PT. BOARD UPDATED. IV SITE R SUBCLAVIAN YEMI CATH RUNNING NS@TKO 10ML/HR PATENT AND INTACT. SKIN WARM, DRY, AND NOT INTACT. SEE WOUND NOTES. PT HAS GAMEZ. PT ON 3L O2 VIA NC. BED LOCKED IN LOW POSITION. CALL SERRANO WITHIN REACH. SAFETY PRECAUTIONS IN PLACE. Addendum: 09/21/18 at 1951 by Hector Dnune RN SEIZURE PRECAUTIONS IN PLACE.
--- NOTE | 2018-09-21 20:27 | NUR ---
SENNA AND ELIQUIS GIVEN PO. PT TOLERATED WELL. ZOSYN SCHEDULED FOR 2099. PT CURRENTLY RECEIVING HEMODIALYSIS. WILL GIVE ZOSYN AFTER. Addendum: 09/22/18 at 0720 by Hector Dunne RN CYMBALTA, TRAZODONE, FERROUS SULFATE, MIRALAX, AND VITAMIN C WERE REFUSED BY PT.
[2018-09-21] MEDS: DULoxetine 30 MG CAPDR PO SCH (20:31)
[2018-09-21] MEDS: traZODone 50 MG TAB PO SCH (20:31)
--- NOTE | 2018-09-21 21:00 | NUR ---
HEMODIALYSIS NURSE INFORMED ME THAT PT DOES NOT WANT HD NURSE TO REMOVE YEMI CATH. SHE WANTS DR. STACY TO REMOVE IT SINCE HE WAS THE ONE TO TELL HER.
--- NOTE | 2018-09-21 21:21 | NUR ---
DILAUDID GIVEN FOR 10/10 PAIN. PT TOLERATED WELL.
--- NOTE | 2018-09-21 23:08 | NUR ---
ATIVAN 1MG GIVEN PO. ZOSYN HUNG AND RUNNING. PT TOLERATED WELL.
[2018-09-21] MEDS: LORazepam 1 MG TAB PO PRN (23:09)
--- NOTE | 2018-09-21 23:30 | NUR ---
HD COMPLETE. 2.6L TAKEN OUT.
[2018-09-22] VITALS: BP 147/85
[2018-09-22] MEDS: HYDROmorphone 2 MG TAB PO PRN ×6 (01:21→21:56)
--- NOTE | 2018-09-22 01:21 | NUR ---
DILAUDID PO GIVEN FOR 10/10 PAIN. PT TOLERATED WELL.
--- NOTE | 2018-09-22 02:30 | NUR ---
PT SLEEPING COMFORTABLY. NO S/S OF DISTRESS NOTED. WILL CONTINUE TO MONITOR.
[2018-09-22 04:00] VITALS: BP 120/71
[2018-09-22] MEDS: PIPER/TAZO 2.25GM/D5W PREMIX 50 ML IV SCH ×3 (04:15→21:56)
--- NOTE | 2018-09-22 04:15 | NUR ---
ELIO HUNG AND RUNNING. PT TOLERATING WELL.
--- NOTE | 2018-09-22 05:59 | NUR ---
DILAUDID PO GIVEN FOR 10/10 PAIN. PT TOLERATED WELL.
[2018-09-22] MEDS: ALBUTEROL SULFATE/IPRATROPIU 3 ML SOL IH SCH ×3 (06:42→19:34)
--- NOTE | 2018-09-22 07:00 | NUR ---
REPORT GIVEN TO AM NURSE AT BEDSIDE. PT IN STABLE CONDITION.
--- NOTE | 2018-09-22 07:01 | NUR ---
REPORT RECEIVED FROM MULTI OPERATION FORMING MACHINE SETTER NURSE AT BEDSIDE. PT IN STABLE CONDITION. AAOX4. ABLE TO VERBALIZE NEEDS. PATIENT AWARE OF NEXT SCHEDULE PAIN MEDICATION. IV SITE TO R SUBCLAVIAN YEMI CATH RUNNING NS @ TKO 10 ML/HR PATENT AND INTACT. SKIN WARM, DRY, AND NOT INTACT. SEE WOUND NOTES. PT HAS GAMEZ RUNNING TO GRAVITY WITH YELLOW URINE. PT ON 3L O2 VIA NC. NO SIGNS OF DISTRESS OR SOB NOTED. BOARD UPDATED. VERBALIZED PLAN OF CARE TO PATIENT, PATIENT VERBALIZED UNDERSTANDING. SAFETY AND SEIZURE PRECAUTION IN PLACE, BED LOCKED IN LOW POSITION. CALL SERRANO WITHIN REACH. WILL CONTINUE TO MONITOR PATIENT.
[2018-09-22 08:00] VITALS: BP 125/78
[2018-09-22] MEDS: OXYBUTYNIN 5 MG TAB PO SCH (08:00)
[2018-09-22] MEDS: CALCIUM ACETATE 667 MG TAB PO SCH ×3 (08:00→17:00)
[2018-09-22] MEDS: LACTOBACILLUS RHAMNOSUS GG 1 EACH CAP PO SCH (09:00)
[2018-09-22] MEDS: MULTIVITAMIN 5 ML ORASYR PO SCH (09:00)
[2018-09-22] MEDS: amLODIPine 5 MG TAB PO SCH (09:00)
[2018-09-22] MEDS: ASCORBIC ACID 500 MG TAB PO SCH ×2 (09:00→20:31)
[2018-09-22] MEDS: FERROUS SULFATE 325 MG TABEC PO SCH ×2 (09:00→20:31)
[2018-09-22] MEDS: POLYETHYLENE GLYCOL 17 GM/PKT PO SCH ×2 (09:09→20:31)
[2018-09-22] MEDS: SENNA 8.6 MG TAB PO SCH ×2 (09:09→20:17)
[2018-09-22] MEDS: APIXABAN 2.5 MG TAB PO SCH ×2 (09:14→20:21)
--- NOTE | 2018-09-22 09:14 | NUR ---
PATIENT REFUSED ORDERED MEDICATIONS, PATIENT ONLY TOOK SENNOKOT, MIRALAX, AND ELIQUIS. EDUCATED HER ON INDICATIONS FOR HER OTHER ORDERED MEDICATIONS. PATIENT VERBALIZED UNDERSTANDING BUT STILL REFUSED. WILL CONTINUE TO MONITOR PATIENT.
[2018-09-22] MEDS: GABAPENTIN 300 MG CAP PO SCH (09:21)
--- NOTE | 2018-09-22 09:56 | NUR ---
PATIENT C/O 10/10 BACK PAIN, PRN DILAUDID GIVEN. PATIENT TOLERATED IT WELL. WILL CONTINUE TO MONITOR AND REASSESS PATIENT.
[2018-09-22 10:47] LABS: BASOPHILS # (AUTO) 0.1 K/uL (0.00-0.22); BASOPHILS % (AUTO) 0.8 % (0.0-2.0); EOSINOPHILS # (AUTO) 0.1 K/uL (0-0.4); EOSINOPHILS % (AUTO) 1.1 % (0.0-4.0); HEMATOCRIT 28.5 % (36-48); HEMOGLOBIN 8.9 g/dL (12.0-16.0); LYMPHOCYTES # (AUTO) 1.1 K/uL (2.5-16.5); LYMPHOCYTES % (AUTO) 15.4 % (20.5-51.1); MEAN CORPUSCULAR HEMOGLOBIN 24 pg (27-31); MEAN CORPUSCULAR HGB CONC 31 g/dL (33-37); MEAN CORPUSCULAR VOLUME 76.4 fL (80-94); MONOCYTES # (AUTO) 0.5 K/uL (0.8-1.0); MONOCYTES % (AUTO) 7.2 % (1.7-9.3); NEUTROPHILS # (AUTO) 5.4 K/uL (1.8-7.7); NEUTROPHILS % (AUTO) 75.5 % (42.2-75.2); PLATELET COUNT (AUTO) 362 K/uL (140-450); RED BLOOD CELL COUNT(AUTO) 3.73 MIL/uL (4.20-5.40); RED CELL DISTRIBUTION WIDTH 20.3 % (11.6-13.7); WHITE BLOOD COUNT (AUTO) 7.2 K/uL (4.8-10.8)
[2018-09-22 11:10] LABS: CARBON DIOXIDE 28.6 mmol/L (21-32); CREATININE 1.7 mg/dL (0.6-1.3)
[2018-09-22 11:12] LABS: POTASSIUM 2.6 mmol/L (3.5-5.1)
[2018-09-22 11:13] LABS: MAGNESIUM 1.7 mg/dL (1.8-2.4); PHOSPHORUS 2.8 mg/dL (2.5-4.9)
--- NOTE | 2018-09-22 11:20 | NUR ---
DR. DOTY IN TO SEE THE PATIENT. NEW ORDERS FOR HEMODIALYSIS TODAY. PATIENT AWARE AND AGREEABLE TO PLAN. WILL CONTINUE TO MONITOR PATIENT.
--- NOTE | 2018-09-22 11:45 | NUR ---
INFORMED DR. FRIEDMAN ABOUT PATIENT'S POTASSIUM LEVEL AND MAGNESIUM LEVEL. SHE STATED SHE WILL PASS IT ON TO DR. GONZALEZ. WAITING FOR NEW ORDERS.
--- NOTE | 2018-09-22 12:30 | NUR ---
CALLED [facility], INFORMED THEM NEW ORDER IN FOR DIALYSIS FOR PATIENT TODAY. THEY ARE AWARE AND WILL COME IN TODAY. PATIENT AWARE. WILL CONTINUE TO MONITOR PATIENT.
--- NOTE | 2018-09-22 13:56 | NUR ---
PATIENT C/O 10/10 BACK PAIN, PRN DILAUDID GIVEN. PATIENT TOLERATED IT WELL. WILL CONTINUE TO MONITOR AND REASSESS PATIENT.
[2018-09-22] MEDS: LORazepam 1 MG TAB PO PRN ×2 (15:49→22:32)
[2018-09-22] MEDS ORDERED: POTASSIUM CHLORIDE 10 MEQ TABER PO SCH (16:00)
--- NOTE | 2018-09-22 16:30 | NUR ---
1700 IVPB CANNOT BE GIVEN AT THIS TIME BECAUSE PATIENT IS STARTING DIALYSIS. WEB MARKETING MANAGER AWARE OF K LEVEL 2.6, AND PATIENT TAKEN 40 MEQ K DUR. WILL CONTINUE TO MONITOR PATIENT.
--- NOTE | 2018-09-22 17:56 | NUR ---
PATIENT C/O 10/10 BACK PAIN, PRN DILAUDID GIVEN. PATIENT TOLERATED IT WELL. WILL CONTINUE TO MONITOR AND REASSESS PATIENT.
--- NOTE | 2018-09-22 19:11 | NUR ---
REPORT GIVEN TO HUMAN RESOURCES SUPERVISOR NURSE AT BEDSIDE FOR CONTINUITY OF CARE. PATIENT IN STABLE CONDITION, RESTING, WHILE GETTING HEMODIALYSIS. ENDORSED 1700 IVPB TO HUMAN RESOURCES SUPERVISOR RN.
--- NOTE | 2018-09-22 19:12 | NUR ---
REPORT RECEIVED FROM AM SHIFT AT BEDSIDE. PT IN STABLE CONDITION. AAOX4. PT SLEEPING. BOARD UPDATED. PT CURRENTLY DOING HEMODIALYSIS. IV SITE R SUBCLAVIAN PORTACATH RUNNING NS TKO@5ML/HR PATENT AND INTACT. SKIN WARM, DRY, AND NOT INTACT. SEE WOUND NOTES. PT HAS GAMEZ. PT ON 3.5L O2 VIA NC. BED LOCKED IN LOW POSITION. CALL SERRANO WITHIN REACH. SAFETY PRECAUTIONS IN PLACE. SEIZURE PRECAUTIONS IN PLACE.
[2018-09-22 20:00] VITALS: BP 129/80
--- NOTE | 2018-09-22 20:17 | NUR ---
SENOKOT AND ELIQUIS GIVEN PO. PT TOLERATED WELL. CYMBALTA, TRAZODONE, FERROUS SULFATE, MIRALAX, AND VITAMIN C WERE REFUSED BY PT.
--- NOTE | 2018-09-22 20:20 | NUR ---
PORTACATH REMOVED BY DIALYSIS NURSE AND SENT TO LAB FOR STUDIES.
[2018-09-22] MEDS: traZODone 50 MG TAB PO SCH (20:31)
[2018-09-22] MEDS: DULoxetine 30 MG CAPDR PO SCH (20:31)
--- NOTE | 2018-09-22 20:40 | NUR ---
NEW IV INSERTED BY DIALYSIS NURSE. L AC 24G. 2 ATTEMPTS TAKEN. PT TOLERATED WELL.
[2018-09-22] MEDS: MICAFUNGIN SODIUM 100 MG in NACL 0.9% 100 ML IV SCH (21:02)
--- NOTE | 2018-09-22 21:02 | NUR ---
MYCAMINE GIVEN IVPB HUNG AND RUNNING.. MEDICATION WAS DUE AT 1700 BUT PT HAD HEMODIALYSIS DONE. PT TOLERATING WELL.
--- NOTE | 2018-09-22 21:40 | NUR ---
HEMODIALYSIS COMPLETE. 2.6L TAKEN OUT.
--- NOTE | 2018-09-22 21:56 | NUR ---
DILAUDID GIVEN PO. ZOSYN HUNG AND RUNNING. PT TOLERATED WELL.
[2018-09-22] MEDS ORDERED: VANCOMYCIN 500 MG in DEXTROSE 5% 100 ML IV SCH (22:00)
--- NOTE | 2018-09-22 23:00 | NUR ---
CARTER DELGADO AND DAVID. PT TOLERATED WELL.
[2018-09-23] MEDS: HYDROmorphone 2 MG TAB PO PRN ×7 (01:47→21:50)
--- NOTE | 2018-09-23 01:47 | NUR ---
DILAUDID GIVEN PO FOR 10/10 PAIN. PT TOLERATED WELL.
--- NOTE | 2018-09-23 03:20 | NUR ---
PT SLEEPING COMFORTABLY. NO S/S OF DISTRESS NOTED. WILL CONTINUE TO MONITOR.
[2018-09-23 04:00] VITALS: BP 124/82
--- NOTE | 2018-09-23 04:00 | NUR ---
ELIO HUNG AND RUNNING. PT TOLERATING WELL.
[2018-09-23] MEDS: PIPER/TAZO 2.25GM/D5W PREMIX 50 ML IV SCH ×2 (04:20→13:14)
--- NOTE | 2018-09-23 06:05 | NUR ---
DILAUDID GIVEN FOR 10/10 PAIN. PT TOLERATED WELL.
[2018-09-23] MEDS: ALBUTEROL SULFATE/IPRATROPIU 3 ML SOL IH SCH ×3 (06:39→19:32)
[2018-09-23 06:48] LABS: BASOPHILS % (AUTO) 0.5 % (0.0-2.0); EOSINOPHILS # (AUTO) 0.2 K/uL (0-0.4); EOSINOPHILS % (AUTO) 2.1 % (0.0-4.0); HEMATOCRIT 27.8 % (36-48); HEMOGLOBIN 8.6 g/dL (12.0-16.0); LYMPHOCYTES # (AUTO) 2.1 K/uL (2.5-16.5); MEAN CORPUSCULAR HEMOGLOBIN 24 pg (27-31); MEAN CORPUSCULAR HGB CONC 31 g/dL (33-37); MEAN CORPUSCULAR VOLUME 77.1 fL (80-94); MONOCYTES # (AUTO) 0.7 K/uL (0.8-1.0); MONOCYTES % (AUTO) 9.4 % (1.7-9.3); NEUTROPHILS # (AUTO) 4.3 K/uL (1.8-7.7); PLATELET COUNT (AUTO) 398 K/uL (140-450); RED BLOOD CELL COUNT(AUTO) 3.61 MIL/uL (4.20-5.40); RED CELL DISTRIBUTION WIDTH 20.3 % (11.6-13.7); WHITE BLOOD COUNT (AUTO) 7.3 K/uL (4.8-10.8)
[2018-09-23 07:11] LABS: MAGNESIUM 1.5 mg/dL (1.8-2.4); PHOSPHORUS 2.8 mg/dL (2.5-4.9)
--- NOTE | 2018-09-23 07:15 | NUR ---
REPORT GIVEN TO AM NURSE AT BEDSIDE. PT IN STABLE CONDITION.
--- NOTE | 2018-09-23 07:16 | NUR ---
REPORT RECEIVED FROM PM SHIFT NURSE CELINE. PT ASLEEP IN BED, RESPIRATIONS EVEN & UNLABORED. FLACC 0. CALL LIGHT WITHIN REACH.
[2018-09-23 07:38] LABS: ANION GAP 12.8 (8-16); CARBON DIOXIDE 26.8 mmol/L (21-32); CREATININE 1.6 mg/dL (0.6-1.3); POTASSIUM 3.6 mmol/L (3.5-5.1)
[2018-09-23 08:00] VITALS: BP 112/80
[2018-09-23] MEDS: CALCIUM ACETATE 667 MG TAB PO SCH ×3 (08:00→17:00)
[2018-09-23] MEDS: OXYBUTYNIN 5 MG TAB PO SCH (08:00)
[2018-09-23] MEDS ORDERED: MAGNESIUM OXIDE 400 MG TAB PO SCH (08:28)
[2018-09-23] MEDS: POLYETHYLENE GLYCOL 17 GM/PKT PO SCH ×2 (08:49→20:37)
[2018-09-23] MEDS: SENNA 8.6 MG TAB PO SCH ×2 (08:49→20:35)
[2018-09-23] MEDS: APIXABAN 2.5 MG TAB PO SCH ×2 (08:51→20:30)
[2018-09-23] MEDS: ASCORBIC ACID 500 MG TAB PO SCH ×2 (09:00→20:38)
[2018-09-23] MEDS: amLODIPine 5 MG TAB PO SCH (09:00)
[2018-09-23] MEDS: GABAPENTIN 300 MG CAP PO SCH (09:00)
[2018-09-23] MEDS: MULTIVITAMIN 5 ML ORASYR PO SCH (09:00)
[2018-09-23] MEDS: LACTOBACILLUS RHAMNOSUS GG 1 EACH CAP PO SCH (09:00)
[2018-09-23] MEDS: FERROUS SULFATE 325 MG TABEC PO SCH ×2 (09:00→20:38)
--- NOTE | 2018-09-23 09:00 | NUR ---
AM MEDS GIVEN. PT REFUSED SOME MEDS, EXPLAINED BENEFITS OF ROUTINE MED REGIMEN. PT VERBALIZED UNDERSTANDING, BUT CONT TO REFUSE. STATES SHE DOESN'T NEED ALL OF THEM. CALL LIGHT WITHIN REACH.
--- NOTE | 2018-09-23 11:10 | NUR ---
PT IN HIGH FOWLERS IN BED, WATCHING TVT. RESPIRATIONS EVEN & UNLABORED. PT REPOSITIONED. CALL LIGHT WITHIN REACH.
--- NOTE | 2018-09-23 13:15 | NUR ---
PT IN HIGH FOWLERS EATING LUNCH. NO C/O PAIN AT THIS TIME. RESPIRATIONS EVEN & UNLABORED. CALL LIGHT WITHIN REACH.
--- NOTE | 2018-09-23 14:45 | NUR ---
09/23/18 RD FOLLOW UP COMPLETED PLEASE REFER TO NUTRITION ASSESSMENT UNDER CARE ACTIVITY FOR ESTIMATED NUTRITIONAL NEEDS. 1. CONTINUE RENAL DIET TOLERATED 2. ENCOURAGE INCREASING PO INTAKE 3. RD TO FOLLOW-UP 3-5 DAYS, MODERATE RISK KENDALL SALAZAR RD
--- NOTE | 2018-09-23 15:10 | NUR ---
WOUND CARE PROVIDED ORDERED. PT LIAT TX WELL. CALL LIGHT WITHIN REACH.
[2018-09-23 16:00] VITALS: BP 112/82
[2018-09-23] MEDS ORDERED: FOAM DRESSING TP SCH (17:00)
[2018-09-23] MEDS: MICAFUNGIN SODIUM 100 MG in NACL 0.9% 100 ML IV SCH (17:03)
[2018-09-23] MEDS: THERAHONEY WOUND DRESSING TP SCH (17:07)
--- NOTE | 2018-09-23 17:15 | NUR ---
PT IN HIGH FOWLERS EATING DINNER, NO SIGNS OF DISTRESS. VERBALIZED 7/10 BACK PAIN. OFFERED TO REPOSITION PT. PT STATES SHE WILL BE FINE & WILL WAIT FOR NEXT DUE DILAUDID. CALL LIGHT WITHIN REACH.
--- NOTE | 2018-09-23 19:15 | NUR ---
BEDSIDE REPORT GIVEN TO PM SHIFT NURSE LOU.
--- NOTE | 2018-09-23 19:16 | NUR ---
REPORT RECEIVED FROM AM SHIFT NURSE. PT AWAKE, ALERT, ORIENTED X 4. RESPIRATIONS EVEN & UNLABORED. PT EATING AND TOLERATED WELL. NO COMPLAINTS AT THIS TIME. PT'S IVF INFUSING WELL ON R AC G 22. NO RESPIRATORY DISTRESS AT THIS TIME. CALL LIGHT WITHIN REACH.WILL CONTINUE TO MONITOR.
[2018-09-23] MEDS: LORazepam 1 MG TAB PO PRN (20:22)
[2018-09-23] MEDS: DULoxetine 30 MG CAPDR PO SCH (20:36)
[2018-09-23] MEDS: traZODone 50 MG TAB PO SCH (20:36)
--- NOTE | 2018-09-23 21:50 | NUR ---
PT C/O OF PAIN 8-10/10 VERBALIZED BY PT. PAIN MEDS GIVEN
--- NOTE | 2018-09-23 22:50 | NUR ---
REASSESSED PAIN DECREASED TO 4/10 VERBALIZED BY PT.
[2018-09-24] VITALS: BP 115/86
[2018-09-24] MEDS ORDERED: HYDRAGUARD CREAM TP ONE (01:00)
[2018-09-24] MEDS: HYDROmorphone 2 MG TAB PO PRN ×6 (01:59→23:08)
--- NOTE | 2018-09-24 02:15 | NUR ---
PT C/O OF PAIN VERBALIZED BY PT 06/26. PAIN MED GIVEN Q4 PRN.
--- NOTE | 2018-09-24 03:15 | NUR ---
REASSESSED PAIN DECREASED TO 4/10 VERBALIZED BY PT.
[2018-09-24 04:00] VITALS: BP 118/86
--- NOTE | 2018-09-24 05:40 | NUR ---
PT REFUSED LABS PER LAUNDERER HAND. EXPLAINED TO HER THE RISKS AND BENEFITS. PT VERBALIZED UNDERSTANDING
--- NOTE | 2018-09-24 06:30 | NUR ---
PT WAS GIVEN ACETAMINOPHEN 650 MG(2 CAPS TOTAL) BREAKTHROUGH PAIN. CALLED FOR DILAUDID ORDERS. DR. HUNTER WILL ORDER ONE AGAIN.
--- NOTE | 2018-09-24 07:06 | NUR ---
ENDORSED TO AM SHIFT NURSE. PT WAS GIVEN PAIN MEDS PRIOR TO ENDORSEMENT. DUE FOR PAIN REASSESSMENT TO NEXT RN. INFORMED. PT IN STABLE CONDITION
[2018-09-24] MEDS: ALBUTEROL SULFATE/IPRATROPIU 3 ML SOL IH SCH ×3 (07:07→19:36)
--- NOTE | 2018-09-24 07:07 | NUR ---
AWAKE AND ALERT RESPONSIVE SUPPLEMENTAL HUMIDIFIED OXYGEN AT 3 LPM VIA NC PATIENT STATES "THAT SHE WANTS OXYGENT AT 3 LPM I CAN'T BREATHE ESPECIALLY AT NIGHT IF O2 IS LOWER THAN 3 LPM"
--- NOTE | 2018-09-24 07:07 | NUR ---
REPORT RECEIVED FROM VENETIAN BLIND MECHANIC NURSE AT BEDSIDE. PT IN STABLE CONDITION. AAOX4. ABLE TO VERBALIZE NEEDS. PATIENT AWARE OF NEXT SCHEDULE PAIN MEDICATION. IV ACCESS TO RIGHT AC WAS LEAKING SO PATIENT REMOVED IT. IV CATHETER INTACT, MINIMAL BLOOD NOTED. INFORMED PATIENT OF NEXT DUE IV MEDICATION AND AGREED UPON TIME FOR IV INSETION. SKIN WARM, DRY, AND NOT INTACT. SEE WOUND NOTES. PT HAS GAMEZ RUNNING TO GRAVITY WITH LIGHT FREDDIE URINE. PT ON 3.5L O2 VIA NC. NO SIGNS OF DISTRESS OR SOB NOTED. BOARD UPDATED. VERBALIZED PLAN OF CARE TO PATIENT, PATIENT VERBALIZED UNDERSTANDING. SAFETY AND SEIZURE PRECAUTION IN PLACE, BED LOCKED IN LOW POSITION. CALL SERRANO WITHIN REACH. WILL CONTINUE TO MONITOR PATIENT.
[2018-09-24] MEDS ORDERED: LORazepam 1 MG TAB PO PRN (07:45)
[2018-09-24 08:00] VITALS: BP 117/68
[2018-09-24] MEDS: OXYBUTYNIN 5 MG TAB PO SCH (08:00)
[2018-09-24] MEDS: CALCIUM ACETATE 667 MG TAB PO SCH ×3 (08:00→17:00)
[2018-09-24] MEDS: MULTIVITAMIN 5 ML ORASYR PO SCH (09:00)
[2018-09-24] MEDS: LACTOBACILLUS RHAMNOSUS GG 1 EACH CAP PO SCH (09:00)
[2018-09-24] MEDS: POLYETHYLENE GLYCOL 17 GM/PKT PO SCH ×2 (09:00→21:34)
[2018-09-24] MEDS: amLODIPine 5 MG TAB PO SCH (09:00)
[2018-09-24] MEDS: GABAPENTIN 300 MG CAP PO SCH (09:00)
[2018-09-24] MEDS: FERROUS SULFATE 325 MG TABEC PO SCH ×2 (09:00→21:00)
[2018-09-24] MEDS: ASCORBIC ACID 500 MG TAB PO SCH ×2 (09:00→21:00)
[2018-09-24] MEDS: SENNA 8.6 MG TAB PO SCH ×2 (09:19→21:34)
[2018-09-24] MEDS: APIXABAN 2.5 MG TAB PO SCH ×2 (09:22→21:38)
--- NOTE | 2018-09-24 09:22 | NUR ---
PATIENT ONLY TOOK ELIQUIS AND SENNA FROM HER ORDERED MEDICATIONS. INFORMED PATIENT OF IMPORTANCE OF FOLLOWING DOCTOR'S ORDERS AND MEDICATIONS, PATIENT VERBALIZED UNDERSTANDING BUT REINFORCED HER REFUSAL. SAFETY AND SEIZURE PRECAUTION IN PLACE, BED LOCKED IN LOW POSITION. CALL SERRANO WITHIN REACH. WILL CONTINUE TO MONITOR PATIENT.
--- NOTE | 2018-09-24 11:06 | NUR ---
PATIENT C/O 10/10 BACK PAIN, PRN DILAUDID GIVEN. PATIENT TOLERATED IT WELL. WILL CONTINUE TO MONITOR PATIENT.
--- NOTE | 2018-09-24 15:07 | NUR ---
PATIENT C/O 10/10 BACK PAIN, PRN DILAUDID GIVEN. PATIENT TOLERATED IT WELL. WILL CONTINUE TO MONITOR PATIENT.
[2018-09-24 16:00] VITALS: BP 116/78
--- NOTE | 2018-09-24 16:34 | NUR ---
PATIENT GIVEN SPONGE BATH. LINENS CHANGED. PATIENT TOLERATED IT WELL. ATTEMPTED TO START NEW IV. PATIENT REFUSED HANDS AND AC, ALLOWING FOREARM ONLY. ATTEMPT FAILED. WILL LET PATIENT AND ATTEMPT AGAIN.
--- NOTE | 2018-09-24 16:55 | NUR ---
SPOKE TO RESIDENTS, PATIENT WILL GET HD PLACEMENT TOMORROW AND GET DIALYSIS TOMORROW WELL. INFORMED PATIENT. SHE VERBALIZED UNDERSTANDING. ALL NEEDS MET AT THE MOMENT. PATIENT MEDICATED FOR PAIN AT 1507. SAFETY AND SEIZURE PRECAUTION IN PLACE, BED LOCKED IN LOW POSITION. CALL SERRANO WITHIN REACH. WILL CONTINUE TO MONITOR PATIENT.
--- NOTE | 2018-09-24 17:00 | NUR ---
ORDERED IVPB NOT GIVEN AT THIS CURRENT TIME BECAUSE NO SUCCESSFUL IV INSERTIONS YET. WILL CONTINUE TO MONITOR PATIENT AND ATTEMPT IV INSERTION AGAIN AT AGREEABLE SITE FOR PATIENT.
--- NOTE | 2018-09-24 17:40 | NUR ---
PATIENT FINISHED EATING DINNER. NEW IV ATTEMPTED BY ECHO DEAN. PATIENT REFUSED OTHER LOCATIONS OTHER THAN FOREARMS. RN VERBALIZED UNDERSTANDING. CALLED ER TO SEE IF TOYS INSPECTOR AVAILABLE. WAS TOLD THEY ARE SWAMPED AT CURRENT TIME, WILL CHECK BACK.
--- NOTE | 2018-09-24 19:06 | NUR ---
PATIENT C/O 10/10 BACK PAIN, PRN DILAUDID GIVEN. PATIENT TOLERATED IT WELL. WILL CONTINUE TO MONITOR PATIENT.
--- NOTE | 2018-09-24 19:07 | NUR ---
PATIENT REPORT GIVEN TO TECHNICAL WRITER NURSE AT BEDSIDE FOR CONTINUITY OF CARE. PATIENT RESTING AND STABLE. ENDORSED 1700 IVPB TO RN BECAUSE CURRENTLY DUE TO PATIENT'S WISHES, NO SUCCESSFUL IV INSERTION YET. ALSO ENDORSED PAIN REASSESSMENT.
--- NOTE | 2018-09-24 19:08 | NUR ---
RECD. RESTING IN BED, AWAKE, A/OX4. RESPIRATION EVEN AND UNLABORED. WATCHING TV. AMBULATING INDEPENDENTLY. WITH SACRAL WOUND WITH DRESSING DRY AND INTACT, ON WOUND CARE BED. F/C PATENT DRAINING CLEAR YELLOW URINE. PLAN OF CARE DISCUSSED. VERBALIZED UNDERSTANDING. DENIES PAIN 0/10.
--- NOTE | 2018-09-24 20:00 | NUR ---
Patient's Plan of Care was discussed and reviewed with ZUMBA INSTRUCTOR: Sandeep HELLER
[2018-09-24] MEDS: DULoxetine 30 MG CAPDR PO SCH (21:00)
[2018-09-24] MEDS: traZODone 50 MG TAB PO SCH (21:00)
--- NOTE | 2018-09-24 21:38 | NUR ---
DUE PO MEDICATIONS GIVEN. SOME MEDS PATIENT REFUSED, STATED THAT SHE DOES NOT TAKE THEM NOW.
--- NOTE | 2018-09-25 01:20 | NUR ---
NEW IV LINE INSERTED BY CHARGE NURSE KEIRA AT THE RIGHT FOREARM G22.
[2018-09-25] MEDS: HYDROmorphone 2 MG TAB PO PRN ×4 (03:19→15:10)
[2018-09-25 04:00] VITALS: BP 119/80
--- NOTE | 2018-09-25 04:30 | NUR ---
SLEEPING COMFORTABLY IN BED.
[2018-09-25 07:09] LABS: BASOPHILS # (AUTO) 0.1 K/uL (0.00-0.22); BASOPHILS % (AUTO) 1.4 % (0.0-2.0); EOSINOPHILS # (AUTO) 0.1 K/uL (0-0.4); EOSINOPHILS % (AUTO) 1.4 % (0.0-4.0); HEMATOCRIT 26.4 % (36-48); HEMOGLOBIN 8.3 g/dL (12.0-16.0); LYMPHOCYTES # (AUTO) 2.4 K/uL (2.5-16.5); LYMPHOCYTES % (AUTO) 29.2 % (20.5-51.1); MEAN CORPUSCULAR HEMOGLOBIN 24 pg (27-31); MEAN CORPUSCULAR HGB CONC 31 g/dL (33-37); MEAN CORPUSCULAR VOLUME 75.6 fL (80-94); MONOCYTES # (AUTO) 0.8 K/uL (0.8-1.0); MONOCYTES % (AUTO) 9.7 % (1.7-9.3); NEUTROPHILS # (AUTO) 4.8 K/uL (1.8-7.7); NEUTROPHILS % (AUTO) 58.3 % (42.2-75.2); PLATELET COUNT (AUTO) 420 K/uL (140-450); RED BLOOD CELL COUNT(AUTO) 3.49 MIL/uL (4.20-5.40); RED CELL DISTRIBUTION WIDTH 19.8 % (11.6-13.7); WHITE BLOOD COUNT (AUTO) 8.3 K/uL (4.8-10.8)
[2018-09-25 07:19] LABS: ANION GAP 15.5 (8-16); CREATININE 2.8 mg/dL (0.6-1.3); POTASSIUM 4.5 mmol/L (3.5-5.1)
[2018-09-25] MEDS: ALBUTEROL SULFATE/IPRATROPIU 3 ML SOL IH SCH ×2 (07:23→13:15)
[2018-09-25 07:26] LABS: MAGNESIUM 1.7 mg/dL (1.8-2.4); PHOSPHORUS 5.1 mg/dL (2.5-4.9)
--- NOTE | 2018-09-25 07:35 | NUR ---
CONDITION REMAIN STABLE. ALL NEEDS ATTENDED. ENDORSED TO AM NURSES FOR CONTINUITY OF CARE.
[2018-09-25] MEDS: MICAFUNGIN SODIUM 100 MG in NACL 0.9% 100 ML IV SCH (07:45)
[2018-09-25] MEDS: OXYBUTYNIN 5 MG TAB PO SCH (08:00)
[2018-09-25] MEDS: CALCIUM ACETATE 667 MG TAB PO SCH ×2 (08:00→12:00)
--- NOTE | 2018-09-25 08:00 | NUR ---
RECEIVED REPORT FROM YAMILE VILLALBA FOR CONTINUITY OF CARE . PATIENT AWAKE A/OX4 NO S/S OF RESP DISTRESS NOTED ABLE TO MAKE NEEDS KNOWN. C/O BACK PAIN , NIGHT NURSE MEDICATED HER WITH DILAUDID PO . IV SITE RIGHT HAND GAUGE 22 INTACT AND PATENT. IVF INFUSING WELL. PLAN OF CARE DISCUSSED WITH THE PATIENT ,VITALS STABLE WILL CONTINUE TO MONITOR.
[2018-09-25] MEDS: APIXABAN 2.5 MG TAB PO SCH (09:00)
[2018-09-25] MEDS: GABAPENTIN 300 MG CAP PO SCH (09:00)
[2018-09-25] MEDS: ASCORBIC ACID 500 MG TAB PO SCH (09:00)
[2018-09-25] MEDS: FERROUS SULFATE 325 MG TABEC PO SCH (09:00)
[2018-09-25] MEDS: LACTOBACILLUS RHAMNOSUS GG 1 EACH CAP PO SCH (09:00)
[2018-09-25] MEDS ORDERED: LORazepam 2 MG/ML VIAL IM/IVP SCH (09:00)
[2018-09-25] MEDS: amLODIPine 5 MG TAB PO SCH (09:00)
[2018-09-25] MEDS: SENNA 8.6 MG TAB PO SCH (09:16)
[2018-09-25] MEDS: POLYETHYLENE GLYCOL 17 GM/PKT PO SCH (09:18)
[2018-09-25] MEDS: MULTIVITAMIN 5 ML ORASYR PO SCH (09:19)
--- NOTE | 2018-09-25 09:25 | NUR ---
PATIENT REFUSED TO TAKE ALL THE MEDS EXCEPT SENNA SHE STATED DOESN'T TAKE IT ANY MORE DR GONZALEZ (RESIDENT WILL GO OVER WITH HER FOR THE MEDICATION
[2018-09-25] MEDS: THERAHONEY WOUND DRESSING TP SCH (09:44)
--- NOTE | 2018-09-25 09:45 | NUR ---
ATIVAN 1 MG IVP GIVE AT THIS TIME
--- NOTE | 2018-09-25 10:07 | NUR ---
DR STACY WITH THE PATIENT STARTING INSERTING THE DIALYSIS CATHETER ASSISTED BY OR NURSE RAFIA AND THE TEAM WILL OBSERVE PATIENT.
--- NOTE | 2018-09-25 10:30 | NUR ---
HEMODIALYSIS CATH INSERTED ON RIGHT IJ TOLERATED WELL XRAY TAKEN TO CHECK PLACEMENT
[2018-09-25] MEDS ORDERED: [UNRECOGNIZED DRUG - CODE] IV (11:09)
--- NOTE | 2018-09-25 11:14 | NUR ---
COMPLAIN OF PAIN MEDICATED WITH DILAUDID 4MG PO AT THIS TIME VITALS STABLE .
[2018-09-25] MEDS ORDERED: ROC2I IV (11:15)
--- NOTE | 2018-09-25 11:22 | NUR ---
FAXED PACKET TO [facility]. I CALLED [facility] AND SPOKE WITH NARCISA. PHONE [phone]. HE SAID TO FAX TO [phone]
[2018-09-25] MEDS ORDERED: MAGNESIUM OXIDE 400 MG TAB PO SCH (11:30)
[2018-09-25] MEDS ORDERED: HYDR2TAB6 PO (12:10)
[2018-09-25] MEDS ORDERED: LORA-476 PO (12:14)
--- NOTE | 2018-09-25 12:24 | NUR ---
PATIENT REFUSED TO TAKE PHOSLO STATED SHE DOESN'T NEED IT .MD AWARE OF IT.
[2018-09-25 12:37] VITALS: BP 129/94
--- NOTE | 2018-09-25 12:58 | NUR ---
RECEIVED A CALL FROM NARCISA FROM [facility]. THE PATIENT CAN GO BACK TO ROOM [address] UNDER DR. JASMINE PHONE [phone]. PATRICK DODGE AWARE. CALLED [facility]. AND SPOKE WITH [place]. SET UP [facility] FOR 1800 WITH [place]2. CONFIRMATION NUMBER [place] [id number]. PATRICK DODGE AWARE. PHONE [phone] FOR LOGISTIC CARE.
--- NOTE | 2018-09-25 13:17 | NUR ---
[facility] WILL ROLLER MILL TENDER PATIENT AT 1800. PATRICK DODGE AWARE.
[2018-09-25] MEDS ORDERED: FAMO-90 PO (14:19)
--- NOTE | 2018-09-25 16:00 | NUR ---
HEMODIALYSIS DONE TOTAL OUT PUT 2L VITALS STABLE AT THIS TIME.
[2018-09-25] MEDS ORDERED: LORazepam 2 MG/ML VIAL IVP SCH (17:00)
--- NOTE | 2018-09-25 17:00 | NUR ---
DISCHARGE PATIENT TO [facility] , DISCHARGE INSTRUCTION GIVEN REPORT GIVEN TO RODOLFO DODGE . PATIENT STATED RESTLESS ANXIOUS REQUESTING ATIVAN PER DR HENRIQUEZ (RESIDENT ATIVAN 1 MG IVP GIVEN. HEMODIALYSIS. DISCHARGED BY [facility] VITALS STABLE , STABLE CONDITION UPON DISCHARGE.
[2018-09-26] MEDS ORDERED: MICAFUNGIN SODIUM 100 MG in NACL 0.9% 100 ML IV SCH (09:00)
== END 2018-09-25 17:00 | DRG 314 ==
LOC: MED 10:54 → MTU 15:02
PROVIDERS: ADMIT Family Medicine; ATTEND Family Medicine
PROC: 5A1D70Z Performance of Urinary Filtration, Intermittent, Less than 6 Hours Per Day (ICD-10-PCS; 2018-09-17)
PROC: 5A1D70Z Performance of Urinary Filtration, Intermittent, Less than 6 Hours Per Day (ICD-10-PCS; 2018-09-18)
PROC: 5A1D70Z Performance of Urinary Filtration, Intermittent, Less than 6 Hours Per Day (ICD-10-PCS; 2018-09-20)
PROC: 5A1D70Z Performance of Urinary Filtration, Intermittent, Less than 6 Hours Per Day (ICD-10-PCS; 2018-09-22)
PROC: 5A1D70Z Performance of Urinary Filtration, Intermittent, Less than 6 Hours Per Day (ICD-10-PCS; 2018-09-24)
PROC: 02HV33Z Insertion of Infusion Device into Superior Vena Cava, Percutaneous Approach (ICD-10-PCS; principal; 2018-09-25)
PROC: B548ZZA Ultrasonography of Superior Vena Cava, Guidance (ICD-10-PCS; 2018-09-25)
PROC: 5A1D70Z Performance of Urinary Filtration, Intermittent, Less than 6 Hours Per Day (ICD-10-PCS; 2018-09-25)
DX: T82.7XXA Infection and inflammatory reaction due to other cardiac and vascular devices, implants and grafts, initial encounter (principal); J69.0 Pneumonitis due to inhalation of food and vomit; N17.0 Acute kidney failure with tubular necrosis; E43 Unspecified severe protein-calorie malnutrition; N18.6 End stage renal disease; A41.9 Sepsis, unspecified organism; B37.7 Candidal sepsis; E87.1 Hypo-osmolality and hyponatremia; R65.10 Systemic inflammatory response syndrome (SIRS) of non-infectious origin without acute organ dysfunction; G82.20 Paraplegia, unspecified; I12.0 Hypertensive chronic kidney disease with stage 5 chronic kidney disease or end stage renal disease; I42.0 Dilated cardiomyopathy; B49 Unspecified mycosis; Z99.2 Dependence on renal dialysis; Z87.891 Personal history of nicotine dependence; E11.22 Type 2 diabetes mellitus with diabetic chronic kidney disease; F41.9 Anxiety disorder, unspecified; F32.9 Major depressive disorder, single episode, unspecified; D50.9 Iron deficiency anemia, unspecified; G40.909 Epilepsy, unspecified, not intractable, without status epilepticus; K21.9 Gastro-esophageal reflux disease without esophagitis; G89.4 Chronic pain syndrome; K59.09 Other constipation; Z22.322 Carrier or suspected carrier of Methicillin resistant Staphylococcus aureus; Z86.718 Personal history of other venous thrombosis and embolism; J45.909 Unspecified asthma, uncomplicated; Z88.5 Allergy status to narcotic agent; F11.10 Opioid abuse, uncomplicated; E83.42 Hypomagnesemia; E83.39 Other disorders of phosphorus metabolism; R74.8 Abnormal levels of other serum enzymes; Y83.8 Other surgical procedures as the cause of abnormal reaction of the patient, or of later complication, without mention of misadventure at the time of the procedure; Y92.89 Other specified places as the place of occurrence of the external cause
CPT/HCPCS: 36415; 71045; 76604; 80048; 80053; 80202; 80305; 81001; 82607; 82728; 82746; 83036; 83540; 83605; 83690; 83735; 83880; 84100; 84134; 84443; 84484; 85025; 85045; 85610; 85730; 87040; 87070; 87077; 87081; 87086; 87186; 87205; 93005; 94640; 96365; 96367; 99291; J0696; J0885; J1170; J1450; J1642; J1644; J2060; J2248; J2405; J2543; J3370; J7030; J7060; J7613; J7620; J7644; Q0092